=== PATIENT | female | born 1985 | race Caucasian/White ===

== ENCOUNTER 2018-10-12 23:23 | Emergency (ER) | payer MEDICAID, SELFPAY ==
--- NOTE | 2018-10-12 00:30 | DI.CT_ITS ---
SYMPTOM/DIAGNOSIS: LOW BACK PAIN, L4, R/O DISC PATH LUMBOSACRAL SPINE CT: 10/12 CT examination of the lumbosacral spine was performed according to the usual protocol. There are mild facet degenerative changes particularly at L4-5 and L5-S1. There are disc bulges at L5-S1, L4-5 and L3-4. Mild central disc herniation noted at L4-5, neural impingement not excluded. Neural foramina appear fairly well maintained throughout. No bony central canal spinal stenosis. CONCLUSION: Multi-level disc bulges, small central disc herniation at L4-5. Additional evaluation with MR may be obtained if clinically indicated.
[2018-10-12 23:31] VITALS: BP 106/79; PULSE 68; RESP 20; TEMP 36.5; O2SAT 100
--- NOTE | 2018-10-12 23:48 | W.ED.GENAD ---
Discharge Plan Disposition Patient Disposition: HOME Condition: Good Discharge Details Chief Complaint: Nk/Back Pain Clinical Impression: Lumbago, Back muscle spasm Primary Care Provider: Bee Levine ED Provider: Juan Horvath Home Meds and New Rx's Prescriptions: New diclofenac sodium [Voltaren] 1 % gel 2 gm TP QID Qty: 100 RF: 0 cyclobenzaprine 10 mg tablet 10 mg PO TID 5 Days Qty: 15 RF: 0 prednisone 50 MG tablet 50 mg PO DAILY Qty: 5 RF: 0 Continued lidocaine [LC-5] 5 % cream 1 applic Topical BID-QID PRN (Reason: pain) Qty: 1 RF: 11 oxycodone 5 mg tablet 5 mg PO DAILY MDD 5 mg PRN (Reason: pain) Qty: 14 RF: 0 oxycodone 5 mg tablet 5 mg PO DAILY MDD 5 mg PRN (Reason: pain) Qty: 14 RF: 0 oxycodone 5 mg tablet 5 mg PO DAILY MDD 5 mg PRN (Reason: pain) Qty: 14 RF: 0 acetaminophen 500 MG tablet 1,000 mg PO BID MDD 2000 Qty: 180 RF: 3 valacyclovir 500 MG tablet 500 mg PO BID Qty: 6 RF: 3 ibuprofen 600 MG tablet 600 mg PO Q8H PRN Qty: 90 RF: 0 Discontinued cyclobenzaprine 10 MG tablet 10 mg PO TID PRNQty: 30 RF: 0 Discharge Instructions Instructions: Low Back Strain (ED) Additional Instructions: The CT scan shows no evidence of significant disc bulge, fracture of your spinal column, or other abnormality. I suspect that you have a notable pulled left paraspinal muscle. Do not do anything heavier greater than 5 pounds. Please use a heating pad as often as possible. Please take the Flexeril as directed. Please continue the lidocaine cream, and also use the Voltaren cream.. Please take the prednisone daily as directed to help with the pain. If you notice any worsening of your symptoms, or any new symptoms such as loss of control for your bowels or bladder, numbness or tingling in your groin, vomiting, diarrhea, fever, chills, shortness of breath, chest pain, numbness, weakness, or fainting , please return immediately to the emergency department for reevaluation. Please follow up with your primary care provider as soon as possible for reassessment and reevaluation. As always, it was a pleasure participating in your medical care today. Stand Alone Forms: Work Release Referrals: Bee Levine NP [Primary Care Provider] - Medical Decision Making This is a pleasant 33-year-old female who presents today for evaluation of lumbar pain. The patient states that earlier today she was slightly bent over when she twisted to the left and heard a pop and had notable pain on her left lower back. Pain is consists continued throughout the day not improved. She did take a Percocet at home but this did not help much. She admits to some tingling over her lateral thigh, does not extend below the knee, no associated saddle anesthesia or bowel or bladder incontinence. No concerning red flags of fever, trauma or IV drug use. Exam demonstrates notable reproducible paraspinal pain over L3-L4 and L5 on the left. No saddle anesthesia, good rectal tone, no bowel or bladder incontinence. She also has notable worsening of her symptoms with straight leg raise. I suspect mild lumbar radiculopathy, but doubt cord compression since her signs and symptoms are clinically inconsistent with cauda equina syndrome or acute severe cord compression. Due to the nature of her symptoms that we will get a CT scan to evaluate for significant acute disc process. No clinical indication for emergent MRI at this time based on exam findings. 1:28 AM Patient has refused NSAIDs secondary to history of liver surgery. She has taken Flexeril in the steroid. She does not want the Lidoderm patch secondary to allergy to adhesives. We did discuss risks and benefits of additional medication including narcotics especially as she has been trying to wean off of these recently, however at this time the patient states that she would like additional pain meds including narcotics for further treatment of her pain. We will give additional Valium and oxycodone here in the ED for mild pain control 1:[address] imaging has returned and per virtual radiology demonstrates no evidence of acute process. No large disc protrusions are present. No canal stenosis or neuroforaminal narrowing. With no clinical evidence of cauda equina syndrome, I do feel the patient signs and symptoms are consistent with mild lumbar radiculopathy and paraspinal muscle spasm. Will prescribe Flexeril for home use, steroids, and hold off on NSAIDs and Lidoderm patches the patient states that she has a reaction to all of these. We discussed red flags which return, the importance of close PCP follow-up. I have extensively reviewed the treatment plan and discharge instructions with the patient. I have addressed all patient concerns at this time. The patient was made aware of what symptoms to monitor for that would warrant a return to the emergency department. Discussed the plan with the patient, they demonstrate verbal understanding and agreement with our assessment and plan at this time. FINDINGS: Vertebrae: No acute fracture. Loss of normal lumbar lordosis with mild degenerative spondylitic changes. Discs/Spinal canal/Neural foramina: Small circumferential disc bulges are seen in the lumbar spine, but no large disc protrusions are present, and there is no severe canal stenosis or severe neural foraminal narrowing seen by CT. Soft tissues: Unremarkable. IMPRESSION: Mild degenerative spondylitic changes. Thank you for allowing us to participate in the care of your patient. Dictated and Authenticated by: Soy Vasquez MD 10/13/2018 1:32 AM Eastern Time ([place] & [place]) HPI General Date/Time Provider Initiated Documentation: 10/12/18 23:24. HPI Narrative: This is a 33-year-old female with a past medical history of previous right sided shoulder injury, tubal ligation, who would previously been on long-term opiate narcotics but has been weaning herself off. She presents today for evaluation of back pain. Patient states that she was bending over her sink, turned to her left, and heard a pop and developed notable severe left-sided back pain. This occurred earlier today. She did take a home Percocet however this did not significantly improve her symptoms. Pain is worsened with moving and lying flat. Improved by nothing. She admits to tingling going down the left lateral aspect of her left thigh, but denies any saddle anesthesia, bowel or bladder incontinence, weakness of the legs, chest or abdominal pain, or other complaints. She denies any IV or illicit drug use or history of fever. She denies any other significant trauma to the back. She has no other complaints modifying factors at this time. Related Data Home Medications Medication Instructions Recorded Confirmed acetaminophen 1,000 mg PO BID #180 tab-cap MDD 01/30/17 09/04/18 2000 valacyclovir 500 mg PO BID #6 tab-cap 07/17/17 09/04/18 ibuprofen 600 mg PO Q8H PRN #90 tab-cap 10/10/17 09/04/18 lidocaine 5 % topical cream 1 applic TOPICAL BID-QID PRN #1 09/04/18 09/04/18 tube oxycodone 5 mg tablet 5 mg PO DAILY PRN #14 tab-cap [facility] 09/04/18 09/04/18 5 mg oxycodone 5 mg tablet 5 mg PO DAILY PRN #14 tab-cap [facility] 09/04/18 09/04/18 5 mg oxycodone 5 mg tablet 5 mg PO DAILY PRN #14 tab-cap [facility] 09/04/18 09/04/18 5 mg cyclobenzaprine 10 mg PO TID 5 Days #15 tab 10/13/18 diclofenac sodium [Voltaren] 2 gm TP QID #100 gm 10/13/18 prednisone 50 mg PO DAILY #5 tab 10/13/18 Previous Rx's Medication Instructions Recorded acetaminophen 1,000 mg PO BID #180 tab-cap [facility] 01/30/17 2000 valacyclovir 500 mg PO BID #6 tab-cap 07/17/17 ibuprofen 600 mg PO Q8H PRN #90 tab-cap 10/10/17 lidocaine 5 % topical cream 1 applic TOPICAL BID-QID PRN #1 09/04/18 tube oxycodone 5 mg tablet 5 mg PO DAILY PRN #14 tab-cap [facility] 09/04/18 5 mg oxycodone 5 mg tablet 5 mg PO DAILY PRN #14 tab-cap [facility] 09/04/18 5 mg oxycodone 5 mg tablet 5 mg PO DAILY PRN #14 tab-cap [facility] 09/04/18 5 mg cyclobenzaprine 10 mg PO TID 5 Days #15 tab 10/13/18 diclofenac sodium [Voltaren] 2 gm TP QID #100 gm 10/13/18 prednisone 50 mg PO DAILY #5 tab 10/13/18 Allergies Allergy/AdvReac Type Severity Reaction Status Date / Time tramadol Allergy Intermediate asthma Unverified 10/12/18 23:35 flareup latex Allergy Unknown Hives Unverified 10/12/18 23:35 NSAIDS (Non-Steroidal AdvReac Severe pt has had Unverified 10/12/18 23:35 Anti-Inflamma liver surgery adhesive AdvReac Intermediate richard Unverified 10/12/18 23:35 skin/ blisters aspirin AdvReac Intermediate nose bleeds Unverified 10/12/18 23:35 codeine [Codeine] AdvReac Mild Nausea Unverified 10/12/18 23:35 Penicillins AdvReac Mild nose Unverified 10/12/18 23:35 bleeds upset stomach General Stated Complaint: Nk/Back Pain ROBERTO: 3 Review of Systems Review of Systems All systems reviewed & are unremarkable except as noted in HPI and below [facility] Social History Smoking/Tobacco Use Status: Current every day Tobacco Type: cigarettes Alcohol Intake: never Drug use: Occasionally Substance use type: marijuana Household members: children Number of Children: 2 current occupation: [employer] Pets and animals: Yes Pets and animals: dog(s) Current gender identity: female What type of physical activity do you participate in: none Do you feel safe at home: Yes Do you feel safe in your relationship?: Yes Exam Narrative Exam Narrative: 1.Const: Well-nourished, Well-developed, appearing stated age 2.Eyes: PERRL, no conjunctival injection, and symmetrical lids. 3.ENT: Atraumatic external nose and ears. Moist MM. Neck: Symmetric, trachea midline, No thyromegaly. 4.CVS: +S1/S2, No murmurs or gallops. Peripheral pulses 2+ and equal in all extremities. Brisk capillary refill in all extremities. 5.RESP: Unlabored respiratory effort. Clear to auscultation bilaterally. No wheezes rales or rhonchi 6.GI: Soft, Nontender/Nondistended, No hepatosplenomegaly. No guarding or rebound. 7.MSK: Normocephalic/Atraumatic, Extremities w/o deformity or ttp No cyanosis or clubbing, Normal movement of all extremities. No midline tenderness to palpation over the CTLS spine. Notable left paraspinal tenderness at L3-L4 and L5. Positive straight leg raise bilaterally. Normal ROM in flexion, extension, side bend, and rotation. Patient has +5 out of 5 strength in the lower extremities in dorsiflexion and plantarflexion, knee flexion and extension, hip flexion and extension. There is +2 over 2 dorsalis pedis pulses bilaterally. There is normal sensation to the skin with light touch at the foot, knee, and hip. Normal saddle sensation. Good sensation over the deep sural nerve area bilaterally. Rectal exam demonstrated good rectal tone, and normal perirectal sensation. Reflexes are +2 over 4 in the patellar reflex bilaterally. +5 out of 5 strength in the medial, ulnar, radial nerve distribution bilaterally in the hands as well as intact light touch sensation to these dermatomes on the hands 8.Skin: Warm, Dry. No rashes or lesions. 9.Neuro: chief nurse executive II-XII grossly intact. Sensation grossly intact, no focal neurologic deficits. All 6 cardinal planes of vision are fully intact. No evidence of rotatory or vertical nystagmus. The patient demonstrated a normal [id number], good dexterity. There was no evidence of dysdiadochokinesia. Patient was able to ambulate without difficulty. There was no wide-based gait. Romberg, and [id number] are both normal on testing. Sensation was intact bilaterally as well as muscle strength bilaterally for all extremities. Patient was able to verbalize butter cup with no slurring, or miss pronunciation. 10.Psych: (AAO) x3. Appropriate mood and affect Course Vital Signs Temperature 36.5 C 10/12/18 23:31 Pulse 68 10/12/18 23:31 Respiratory Rate 20 10/12/18 23:31 Blood Pressure 106/79 10/12/18 23:31 Pulse Oximetry 100 10/12/18 23:31 Temperature 36.5 C 10/12/18 23:31 Temperature Source Skin 10/12/18 23:31 Pulse 68 10/12/18 23:31 Respiratory Rate 20 10/12/18 23:31 Respiratory Effort Non-Labored 10/12/18 23:35 Blood Pressure 106/79 10/12/18 23:31 Blood Pressure Position Sitting 10/12/18 23:31 Pulse Oximetry 100 10/12/18 23:31 Oxygen Delivery Method Room Air 10/12/18 23:31 Oxygen Flow Rate 0 10/12/18 23:31 Pain Level 6 10/12/18 23:36
[2018-10-12] MEDS: predniSONE 20 MG TAB 60 MG PO (23:54)
[2018-10-12] MEDS: Cyclobenzaprine 10 MG TAB PO (23:55)
--- NOTE | 2018-10-12 23:59 | ED.GENADUL_ITS ---
Discharge Plan Disposition Patient Disposition: HOME Condition: Good Discharge Details Chief Complaint: Nk/Back Pain Clinical Impression: Lumbago, Back muscle spasm Primary Care Provider: Bee Levine ED Provider: Juan Horvath Home Meds and New Rx's Prescriptions: New diclofenac sodium [Voltaren] 1 % gel 2 gm TP QID Qty: 100 RF: 0 cyclobenzaprine 10 mg tablet 10 mg PO TID 5 Days Qty: 15 RF: 0 prednisone 50 MG tablet 50 mg PO DAILY Qty: 5 RF: 0 Continued lidocaine [LC-5] 5 % cream 1 applic Topical BID-QID PRN (Reason: pain) Qty: 1 RF: 11 oxycodone 5 mg tablet 5 mg PO DAILY MDD 5 mg PRN (Reason: pain) Qty: 14 RF: 0 oxycodone 5 mg tablet 5 mg PO DAILY MDD 5 mg PRN (Reason: pain) Qty: 14 RF: 0 oxycodone 5 mg tablet 5 mg PO DAILY MDD 5 mg PRN (Reason: pain) Qty: 14 RF: 0 acetaminophen 500 MG tablet 1,000 mg PO BID MDD 2000 Qty: 180 RF: 3 valacyclovir 500 MG tablet 500 mg PO BID Qty: 6 RF: 3 ibuprofen 600 MG tablet 600 mg PO Q8H PRN Qty: 90 RF: 0 Discontinued cyclobenzaprine 10 MG tablet 10 mg PO TID PRNQty: 30 RF: 0 Discharge Instructions Instructions: Low Back Strain (ED) Additional Instructions: The CT scan shows no evidence of significant disc bulge, fracture of your spinal column, or other abnormality. I suspect that you have a notable pulled left paraspinal muscle. Do not do anything heavier greater than 5 pounds. Please use a heating pad as often as possible. Please take the Flexeril as directed. Please continue the lidocaine cream, and also use the Voltaren cream.. Please take the prednisone daily as directed to help with the pain. If you notice any worsening of your symptoms, or any new symptoms such as loss of control for your bowels or bladder, numbness or tingling in your groin, vomiting, diarrhea, fever, chills, shortness of breath, chest pain, numbness, weakness, or fainting , please return immediately to the emergency department for reevaluation. Please follow up with your primary care provider as soon as possible for reassessment and reevaluation. As always, it was a pleasure participating in your medical care today. Stand Alone Forms: Work Release Referrals: Bee Levine NP [Primary Care Provider] - Medical Decision Making This is a pleasant 33-year-old female who presents today for evaluation of lumbar pain. The patient states that earlier today she was slightly bent over when she twisted to the left and heard a pop and had notable pain on her left lower back. Pain is consists continued throughout the day not improved. She did take a Percocet at home but this did not help much. She admits to some tingling over her lateral thigh, does not extend below the knee, no associated saddle anesthesia or bowel or bladder incontinence. No concerning red flags of fever, trauma or IV drug use. Exam demonstrates notable reproducible paraspinal pain over L3-L4 and L5 on the left. No saddle ane sthesia, good rectal tone, no bowel or bladder incontinence. She also has notable worsening of her symptoms with straight leg raise. I suspect mild lumbar radiculopathy, but doubt cord compression since her signs and symptoms are clinically inconsistent with cauda equina syndrome or acute severe cord compression. Due to the nature of her symptoms that we will get a CT scan to evaluate for significant acute disc process. No clinical indication for emergent MRI at this time based on exam findings. 1:28 AM Patient has refused NSAIDs secondary to history of liver surgery. She has taken Flexeril in the steroid. She does not want the Lidoderm patch secondary to allergy to adhesives. We did discuss risks and benefits of additional medication including narcotics especially as she has been trying to wean off of these recently, however at this time the patient states that she would like additional pain meds including narcotics for further treatment of her pain. We will give additional Valium and oxycodone here in the ED for mild pain control 1:[address] imaging has returned and per virtual radiology demonstrates no evidence of acute process. No large disc protrusions are present. No canal stenosis or neuroforaminal narrowing. With no clinical evidence of cauda equina syndrome, I do feel the patient signs and symptoms are consistent with mild lumbar radiculopathy and paraspinal muscle spasm. Will prescribe Flexeril for home use, steroids, and hold off on NSAIDs and Lidoderm patches the patient states that she has a reaction to all of these. We discussed red flags which return, the importance of close PCP follow-up. I have extensively reviewed the treatment plan and discharge instructions with the patient. I have addressed all patient concerns at this time. The patient was made aware of what symptoms to monitor for that would warrant a return to the emergency department. Discussed the plan with the patient, they demonstrate verbal understanding and agreement with our assessment and plan at this time. FINDINGS: Vertebrae: No acute fracture. Loss of normal lumbar lordosis with mild degenerative spondylitic changes. Discs/Spinal canal/Neural foramina: Small circumferential disc bulges are seen in the lumbar spine, but no large disc protrusions are present, and there is no severe canal stenosis or severe neural foraminal narrowing seen by CT. Soft tissues: Unremarkable. IMPRESSION: Mild degenerative spondylitic changes. Thank you for allowing us to participate in the care of your patient. Dictated and Authenticated by: Soy Vasquez MD 10/13/2018 1:32 AM Eastern Time ([place] & [place]) HPI General Date/Time Provider Initiated Documentation: 10/12/18 23:24 . HPI Narrative: This is a 33-year-old female with a past medical history of previous right sided shoulder injury, tubal ligation, who would previously been on long-term opiate narcotics but has been weaning herself off. She presents today for evaluation of back pain. Patient states that she was bending over her sink, turned to her left, and heard a pop and developed notable severe left-sided back pain. This occurred earlier today. She did take a home Percocet however this did not significantly improve her symptoms. Pain is worsened with moving and lying flat. Improved by nothing. She admits to tingling going down the left lateral aspect of her left thigh, but denies any saddle anesthesia, bowel or bladder incontinence, weakness of the legs, chest or abdominal pain, or other complaints. She denies any IV or illicit drug use or history of fever. She denies any other significant trauma to the back. She has no other complaints modifying factors at this time. Related Data Home Medications Medication Instructions Recorded Confirmed acetaminophen 1,000 mg PO BID #180 tab-cap MDD 01/30/17 09/04/18 2000 valacyclovir 500 mg PO BID #6 tab-cap 07/17/17 09/04/18 ibuprofen 600 mg PO Q8H PRN #90 tab-cap 10/10/17 09/04/18 lidocaine 5 % topical cream 1 applic TOPICAL BID-QID PRN #1 09/04/18 09/04/18 tube oxycodone 5 mg tablet 5 mg PO DAILY PRN #14 tab-cap [facility] 09/04/18 09/04/18 5 mg oxycodone 5 mg tablet 5 mg PO DAILY PRN #14 tab-cap [facility] 09/04/18 09/04/18 5 mg oxycodone 5 mg tablet 5 mg PO DAILY PRN #14 tab-cap [facility] 09/04/18 09/04/18 5 mg cyclobenzaprine 10 mg PO TID 5 Days #15 tab 10/13/18 diclofenac sodium [Voltaren] 2 gm TP QID #100 gm 10/13/18 prednisone 50 mg PO DAILY #5 tab 10/13/18 Previous Rx's Medication Instructions Recorded acetaminophen 1,000 mg PO BID #180 tab-cap [facility] 01/30/171999 valacyclovir 500 mg PO BID #6 tab-cap 07/17/17 ibuprofen 600 mg PO Q8H PRN #90 tab-cap 10/10/17 lidocaine 5 % topical cream 1 applic TOPICAL BID-QID PRN #1 09/04/18 tube oxycodone 5 mg tablet 5 mg PO DAILY PRN #14 tab-cap [facility] 09/04/18 5 mg oxycodone 5 mg tablet 5 mg PO DAILY PRN #14 tab-cap [facility] 09/04/18 5 mg oxycodone 5 mg tablet 5 mg PO DAILY PRN #14 tab-cap [facility] 09/04/18 5 mg cyclobenzaprine 10 mg PO TID 5 Days #15 tab 10/13/18 diclofenac sodium [Voltaren] 2 gm TP QID #100 gm 10/13/18 prednisone 50 mg PO DAILY #5 tab 10/13/18 Allergies Allergy/AdvReac Type Severity Reaction Status Date / Time tramadol Allergy Intermediate asthma Unverified 10/12/18 23:35 flareup latex Allergy Unknown Hives Unverified 10/12/18 23:35 NSAIDS (Non-Steroidal AdvReac Severe pt has had Unverified 10/12/18 23:35 Anti-Inflamma liver surgery adhesive AdvReac Intermediate richard Unverified 10/12/18 23:35 skin/ blisters aspirin AdvReac Intermediate nose bleeds Unverified 10/12/18 23:35 codeine [Codeine] AdvReac Mild Nausea Unverified 10/12/18 23:35 Penicillins AdvReac Mild nose Unverified 10/12/18 23:35 bleeds upset stomach General Stated Complaint: Nk/Back Pain ROBERTO: 3 Review of Systems Review of Systems All systems reviewed & are unremarkable except as noted in HPI and below PFSH Social History Smoking/Tobacco Use Status: Current every day Tobacco Type: cigarettes Alcohol Intake: never Drug use: Occasionally Substance use type: marijuana Household members: children Number of Children: 2 current occupation: [employer] Pets and animals: Yes Pets and animals: dog(s) Current gender identity: female What type of physical activity do you participate in: none Do you feel safe at home: Yes Do you feel safe in your relationship?: Yes Exam Narrative Exam Narrative: 1.Const: Well-nourished, Well-developed, appearing stated age 2.Eyes: PERRL, no conjunctival injection, and symmetrical lids. 3.ENT: Atraumatic external nose and ears. Moist MM. Neck: Symmetric, trachea midline, No thyromegaly. 4.CVS: +S1/S2, No murmurs or gallops. Peripheral pulses 2+ and equal in all extremities. Brisk capillary refill in all extremities. 5.RESP: Unlabored respiratory effort. Clear to auscultation bilaterally. No wheezes rales or rhonchi 6.GI: Soft, Nontender/Nondistended, No hepatosplenomegaly. No guarding or rebound. 7.MSK: Normocephalic/Atraumatic, Extremities w/o deformity or ttp No cyanosis or clubbing, Normal movement of all extremities. No midline tenderness to palpation over the CTLS spine. Notable left paraspinal tenderness at L3-L4 and L5. Positive straight leg raise bilaterally. Normal ROM in flexion, extension, side bend, and rotation. Patient has +5 out of 5 strength in the lower extremities in dorsiflexion and plantarflexion, knee flexion and extension, hip flexion and extension. There is +2 over 2 dorsalis pedis pulses bilaterally. There is normal sensation to the skin with light touch at the foot, knee, and hip. Normal saddle sensation. Good sensation over the deep sural nerve area bilaterally. Rectal exam demonstrated good rectal tone, and normal perirectal sensation. Reflexes are +2 over 4 in the patellar reflex bilaterally. +5 out of 5 strength in the medial, ulnar, radial nerve distribution bilaterally in the hands as well as intact light touch sensation to these dermatomes on the hands 8.Skin: Warm, Dry. No rashes or lesions. 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 Sensation grossly intact, no focal neurologi c deficits. All 6 cardinal planes of vision are fully intact. No evidence of rotatory or vertical nystagmus. The patient demonstrated a normal [id number], good dexterity. There was no evidence of dysdiadochokinesia. Patient was able to ambulate without difficulty. There was no wide-based gait. Romberg, and [id number] are both normal on testing. Sensation was intact bilaterally as well as muscle strength bilaterally for all extremities. Patient was able to verbalize butter cup with no slurring, or miss pronunciation. 10.Psych: (AAO) x3. Appropriate mood and affect Course Vital Signs Temperature 36.5 C 10/12/18 23:31 Pulse 68 10/12/18 23:31 Respiratory Rate 20 10/12/18 23:31 Blood Pressure 106/79 10/12/18 23:31 Pulse Oximetry 100 10/12/18 23:31 Temperature 36.5 C 10/12/18 23:31 Temperature Source Skin 10/12/18 23:31 Pulse 68 10/12/18 23:31 Respiratory Rate 20 10/12/18 23:31 Respiratory Effort Non-Labored 10/12/18 23:35 Blood Pressure 106/79 10/12/18 23:31 Blood Pressure Position Sitting 10/12/18 23:31 Pulse Oximetry 100 10/12/18 23:31 Oxygen Delivery Method Room Air 10/12/18 23:31 Oxygen Flow Rate 0 10/12/18 23:31 Pain Level 6 10/12/18 23:36
[2018-10-13 00:52] VITALS: BP 110/69; PULSE 60; RESP 22; TEMP 36.4; O2SAT 100
[2018-10-13] MEDS: diazePAM 5 MG TAB PO (01:05)
[2018-10-13] MEDS: oxyCODONE 5 MG TAB 10 MG PO (01:07)
--- NOTE | 2018-10-13 01:32 | DI.VRAD_ITS ---
EXAM: CT Lumbar Spine Without Contrast EXAM DATE/TIME: 10/12/2018 11:46 PM CLINICAL HISTORY: 33 years old, female; Patient HX: Low back pain l4, R/O disc path TECHNIQUE: Imaging protocol: Axial computed tomography images of the lumbar spine without intravenous contrast. Coronal and sagittal reformatted images were created and reviewed. Radiation optimization: All CT scans at this facility use at least one of these dose optimization techniques: automated exposure control; mA and/or kV adjustment per patient size (includes targeted exams where dose is matched to clinical indication); or iterative reconstruction. COMPARISON: CR LUMBAR SPINE COMPLETE 04/28/2015 12:40 PM FINDINGS: Vertebrae: No acute fracture. Loss of normal lumbar lordosis with mild degenerative spondylitic changes. Discs/Spinal canal/Neural foramina: Small circumferential disc bulges are seen in the lumbar spine, but no large disc protrusions are present, and there is no severe canal stenosis or severe neural foraminal narrowing seen by CT. Soft tissues: Unremarkable. IMPRESSION: Mild degenerative spondylitic changes. Dictated and Authenticated by: Soy Vasquez MD. Ordering:LUNA Martinez MD
== END 2018-10-13 01:54 | disposition home or self-care (01) ==
PROVIDERS: Emergency Provider Student in an Organized Health Care Education/Training Program; PCP Nurse Practitioner Family
DX: M54.5 Low back pain (principal); M62.830 Muscle spasm of back; X50.9XXA Other and unspecified overexertion or strenuous movements or postures, initial encounter
CPT/HCPCS: 99284; 72131; 99285; J7512

== ENCOUNTER 2019-03-02 00:45 | Outpatient (CLI) | payer MEDICAID, SELFPAY ==
--- NOTE | 2019-03-02 14:43 | DI.RAD_ITS ---
EXAM: XR SHOULDER RT COMPLETE 2+V INDICATION: R/O FX OR DISLOCATION M25.511 PAIN RT SHOULDER. COMPARISON: RIGHT SHOULDER COMPLETE from 04/02/2014 TECHNIQUE: 2D digital imaging was performed. FINDINGS: There has been prior resection of the distal clavicle. Metallic anchors are seen in the greater tube rosity and anterior upper humerus related to rotator cuff repair. The humeral head appears normally positioned. There is some spurring at the undersurface of the acromion. Degenerative changes are al so seen of the glenohumeral joint. IMPRESSION: Postsurgical and degenerative changes.
== END 2019-03-02 01:05 ==
PROVIDERS: PCP Nurse Practitioner Family; Visit Provider Nurse Practitioner Family
DX: M25.511 Pain in right shoulder (principal); M19.011 Primary osteoarthritis, right shoulder; Z98.890 Other specified postprocedural states
CPT/HCPCS: 73030

== ENCOUNTER 2019-04-21 00:19 | Outpatient (CLI) | payer MEDICAID, SELFPAY ==
--- NOTE | 2019-04-21 09:04 | DI.MRI_ITS ---
EXAM: MR LUMBAR SPINE WO CLINICAL HISTORY: Worsening low back pain, needs MRI for pain clinic M54.5 LOW BACK PAIN. TECHNIQUE: Multiplanar multisequence MRI was performed. COMPARISON: CT lumbar spine wo from 10/13/2018 FINDINGS: The conus medullaris has a normal appearance and location. At L5-S1, there is no focal disc herniation, central spinal canal or neural foraminal stenosis. At L4-L5, there is disc desiccation. There is a small annular tear. No central spinal canal stenosi s is seen. There is no neural foraminal stenosis. At L3-L4, there are mild degenerative changes of the facets. There is a mild diffuse disc bulge. No significant central spinal canal stenosis is seen. No neural foraminal stenosis is present. At L2-L3, there is disc desiccation. There is a mild diffuse disc bulge. No significant central spi nal canal stenosis is present. There is no neural foraminal stenosis. At L1-L2, there is no focal disc herniation, central spinal canal or neural foraminal stenosis. Apart from the mild degenerative endplate signal changes, marrow signal is within normal limits. IMPRESSION: Multilevel degenerative changes in the lumbar spine. No significant central spinal canal or neural f oraminal stenosis. Please see the above discussion for complete details.
== END 2019-04-21 00:39 ==
PROVIDERS: PCP Nurse Practitioner Family; Visit Provider Family Medicine
DX: M54.5 Low back pain (principal); M51.36 Other intervertebral disc degeneration, lumbar region; M47.816 Spondylosis without myelopathy or radiculopathy, lumbar region
CPT/HCPCS: 72148

== ENCOUNTER 2019-07-02 20:41 | Emergency (ER) | payer MEDICAID, SELFPAY ==
[2019-07-02 20:45] VITALS: BP 116/75; PULSE 73; RESP 16; TEMP 36.6; O2SAT 98
--- NOTE | 2019-07-02 20:52 | ED.GENADUL_ITS ---
Discharge Plan Disposition Patient Disposition: HOME Condition: Good Discharge Details Chief Complaint: DentalOral Clinical Impression: Dental infection Primary Care Provider: Bee Levine ED Provider: Aline Mcmahon Home Meds and New Rx's Prescriptions: New clindamycin HCl 150 mg capsule 450 mg PO QID Qty: 78 RF: 0 Continued diclofenac sodium 1 % gel 4 gm TP QID PRN (Reason: back pain) 6 Days Qty: 100 RF: 11 lidocaine [LC-5] 5 % cream 1 applic Topical BID-QID PRN (Reason: pain) Qty: 1 RF: 11 acetaminophen 500 MG tablet 1,000 mg PO BID MDD 1999 Qty: 180 RF: 3 ibuprofen 600 MG tablet 600 mg PO Q8H PRN Qty: 90 RF: 0 Hold Instructions: Home Medication placed on hold at Doctor's office valacyclovir 500 mg tablet 500 mg PO BID Qty: 6 RF: 3 cyclobenzaprine 10 mg tablet 10 mg PO TID PRN (Reason: muscle spasm) Qty: 30 RF: 3 Discharge Instructions Instructions: Clindamycin (By mouth), Oxycodone, Rapid Release (By mouth), Dental Abscess (ED) Additional Instructions: Encourage water intake. Tylenol as needed for discomfort. You may use the Hurricaine gel 3 times daily as needed for discomfort. Please take the clindamycin as prescribed, even if symptoms improve please take the entire course. You may use the oxycodone, 1 tab every 6 hours as needed. Please take this only as prescribed do not drive will take this medication. Please keep this in safe place. Please contact your dentist Friday to schedule follow-up appointment, if you do not have a dentist attached is a list of local dentist. If you develop fever/chills, increased swelling, increased pain or other new/worsening symptoms please seek care urgently once again Referrals: Bee Levine, [facility] [Primary Care Provider] - Medical Decision Making Patient is a pleasant 34-year-old female presents today with chief complaint of left lower dental pain. She reports that dental pain began 2 days ago and is progressively been increasing. She states that she did not have any swelling until today. Has noted progressively worsening left lower cheek swelling. Denies any fevers or chills. States the pain is maximal with eating. She has not taken anything for her discomfort. Patient does have overall poor dentition and has had dental infections historically. On exam, patient has generally poor dentition. She does appear uncomfortable. She does have swelling of the left lower cheek. The area does feel swollen but no area of fluctuance is palpated externally or internally. Pain is maximal near the buccal side of the #20 tooth. She is no swelling under the tongue, no palpable lymphadenopathy, no nuchal rigidity. she denies any headache. She has no swelling of the posterior oropharynx. Patient has no change in her voice. I did ultrasound the area they do not see any collection of fluid to suggest a drainable abscess. Patient will be placed on clindamycin. I did offer her a block I discussed the recess benefits. At this time, the patient has declined but she is aware that she may return at any point for further intervention. She will be given Tylenol, topical Hurricaine gel. Will discharge home with oxycodone. She was instructed to only use this every 6 hours. She will not be given this prior to discharge as the patient is driving home. She was given first dose of clindamycin here, dose for tomorrow morning and prescription for the rest. She was given strict return precautions. All her questions and concerns were addressed and she is a greement this plan. She will contact dentist on Friday to schedule follow-up. HPI General Mode of arrival: ambulatory . Date/Time Provider Initiated Documentation: 07/02/19 20:52 . Limitations to Documentation: no limitations . Information obtained by: patient and RN notes reviewed . History of Present Illness 34 year old F presents to the emergency department with the chief complaint of left lower dental pain, described as moderate, with intensity rated at 6. Quality is described as aching, and is localized to the face and mouth. Patient reports no radiation. Patient started experiencing this day(s) (2) and it has been constant. No relieving factors improve sym ptom(s), Eating worsens symptoms . Patient notes denies cough, diaphoresis, fever/chills, headaches, loss of appetite, nausea/vomiting, rash and shortness of breath. Patient did receive the following treatments prior to arrival, none Related Data Home Medications Medication Instructions Recorded Confirmed acetaminophen 1,000 mg PO BID #180 tab-cap MDD 01/30/17 07/02/19 2000 ibuprofen 600 mg PO Q8H PRN #90 tab-cap 10/10/17 07/02/19 lidocaine 5 % topical cream 1 applic TOPICAL BID-QID PRN #1 09/04/18 07/02/19 tube valacyclovir 500 mg tablet 500 mg PO BID #6 tab-cap 10/21/18 07/02/19 cyclobenzaprine 10 mg tablet 10 mg PO TID PRN #30 tab-cap 1007/02/19 diclofenac sodium 1 % topical gel 4 gm TP QID PRN 6 Days #100 gm 05/24/19 07/02/19 clindamycin HCl 450 mg PO QID #78 cap 07/02/19 Previous Rx's Medication Instructions Recorded acetaminophen 1,000 mg PO BID #180 tab-cap MDD 01/30/17 2000 ibuprofen 600 mg PO Q8H PRN #90 tab-cap 10/10/17 lidocaine 5 % topical cream 1 applic TOPICAL BID-QID PRN #1 09/04/18 tube valacyclovir 500 mg tablet 500 mg PO BID #6 tab-cap 10/21/18 cyclobenzaprine 10 mg tablet 10 mg PO TID PRN #30 tab-cap 01/08/19 diclofenac sodium 1 % topical gel 4 gm TP QID PRN 6 Days #100 gm 05/24/19 clindamycin HCl 450 mg PO QID #78 cap 07/02/19 Allergies Allergy/AdvReac Type Severity Reaction Status Date / Time tramadol Allergy Intermediate asthma Verified 07/02/19 20:50 flareup latex Allergy Unknown Hives Verified 07/02/19 20:50 NSAIDS (Non-Steroidal AdvReac Severe pt has had Verified 07/02/19 20:50 Anti-Inflamma liver surgery adhesive AdvReac Intermediate richard Verified 07/02/19 20:50 skin/ blisters aspirin AdvReac Intermediate nose bleeds Verified 07/02/19 20:50 codeine [Codeine] AdvReac Mild Nausea Verified 07/02/19 20:50 Penicillins AdvReac Mild nose Verified 07/02/19 20:50 bleeds upset stomach General Stated Complaint: DentalOral ROBERTO: 4 Review of Systems Constitutional Constitutional: Reports as per HPI, Denies chills, Denies fatigue, Denies fever(s), Denies headache(s) and Denies poor appetite Eyes Eyes: Denies change in vision and Denies irritation ENT Ears, Nose, Mouth, and Throat: Reports as per HPI, Reports dental pain, Denies dysphagia, Denies dizziness, Denies dry mouth, Denies ear discharge, Denies otalgia, Reports facial pain, Denies headache(s), Denies hoarseness, Denies lip swelling, Denies nasal congestion, Denies odynophagia and Denies sore throat Cardiovascular Cardiovascular: Reports as per HPI and Denies chest pain Respiratory Respiratory: Reports as per HPI and Denies cough Gastrointestinal Gastrointestinal: Reports as per HPI, Denies dysphagia, Denies nausea, Denies odynophagia and Denies vomiting Integumentary/Breasts Skin/Breast: Reports as per HPI, Denies erythema, Denies rash and Denies skin pain Neurologic Neurologic: Reports as per HPI, Denies dizziness and Denies headache(s) Endocrine Endocrine: Denies fatigue Allergic/Immunologic Allergic/Immunologic: Denies lip swelling [facility] Social History (Updated 05/24/19 @ 10:32 by Noa Jacobsen RN) Smoking/Tobacco Use Status: Current every day Tobacco Type: cigarettes Alcohol Intake: never Drug use: Occasionally Substance use type: marijuana Household members: children Number of Children: 2 current occupation: [employer] Pets and animals: Yes Pets and animals: dog(s) Current gender identity: female What is your relationship status?: Panel score (0-1 are the most socially isolated patients): 0 What type of physical activity do you participate in: none and additional Details: Pt is active with child Do you feel safe at home: Yes Do you feel safe in your relationship?: Yes Exam Const General: cooperative, healthy appearing, comfortable, no acute distress, well developed and well groomed Nutritional Appearance: average body habitus and well nourished Orientation: alert and awake [facility] Head: normal to inspection, normocephalic and atraumatic Ears: hearing grossly normal bilaterally, external ears normal and TM's normal bilaterally General nose exam: external nose normal and nares normal Face and sinus: sinuses nontender, face asymmetric (swelling of left lower cheek ), no crepitus, no ecchymosis, no erythema, no edema, no fluctuance, no sinus tenderness and tenderness Face images: 1. area of swelling, accompanies area of discomfort on buccal side of decayed #20 tooth. No fluctance. No erythema,warmth or drainage Mouth: oral mucosae normal, lip normal, tongue normal, salivary ducts normal, oropharynx normal, moist mucous membranes, lip abnormal, no muffled voice, no trismus and No restricted motion Teeth and gingiva: poor dentition (as above) Throat: posterior oropharynx normal, tonsils normal and uvula midline Eyes General: appearance normal, both eyes and all related structures Neck Neck: normal visual inspection, full ROM, no lymphadenopathy, supple and no anterior neck swelling Resp Effort & Inspection: normal respiratory effort, able to speak in complete sentences and no respiratory distress Auscultation: clear to auscultation bilaterally, no rales, no rhonchi and no wheezes Cardio Rate: regular rate Rhythm: regular rhythm Heart Sounds: S1 normal and S2 normal Skin General skin exam: no rashes or lesions noted Trauma: no lacerations or abrasions Neuro General: patient alert and patient awake Cognition: normal cognition Speech: speech normal Gait: normal gait Psych Appearance: grossly normal and well kempt Mental Status: mental status grossly normal Speech and Movement: speech and movement normal Course Vital Signs Vital signs: Vital Signs Temperature 36.6 C 07/02/19 20:45 Pulse 73 07/02/19 20:45 Respiratory Rate 16 07/02/19 20:45 Blood Pressure 116/75 07/02/19 20:45 Pulse Oximetry 98 07/02/19 20:45 Temperature 36.6 C 07/02/19 20:45 Temperature Source Skin 07/02/19 20:45 Pulse 73 07/02/19 20:45 Respiratory Rate 16 07/02/19 20:45 Blood Pressure 116/75 07/02/19 20:45 Blood Pressure Position Sitting 07/02/19 20:45 Pulse Oximetry 98 07/02/19 20:45 Oxygen Delivery Method Room Air 07/02/19 20:45 Oxygen Flow Rate 0 07/02/19 20:45 Pain Level 6 07/02/19 20:45
[2019-07-02] MEDS: Benzocaine 20% Gel 30 GM JAR MM (21:10)
[2019-07-02] MEDS: Clindamycin 150 MG CAP 900 MG PO (21:10)
[2019-07-02] MEDS: Acetaminophen 500 MG TAB 1000 MG PO (21:10)
== END 2019-07-02 21:42 | disposition home or self-care (01) ==
LOC: ER 21:27
PROVIDERS: Emergency Provider Physician Assistant; PCP Nurse Practitioner Family
DX: R68.84 Jaw pain (principal); R22.0 Localized swelling, mass and lump, head; K04.7 Periapical abscess without sinus
CPT/HCPCS: 99283

== ENCOUNTER 2019-10-09 14:12 | Emergency (ER) | payer MEDICAID, SELFPAY ==
[2019-10-09 14:18] VITALS: BP 97/63; PULSE 75; RESP 18; TEMP 37.1; O2SAT 97
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
[2019-10-09] MEDS: Benzocaine 20% Gel 30 GM JAR MM (14:39)
[2019-10-09] MEDS: Cephalexin 500 MG CAP PO (15:57)
[2019-10-09 15:58] VITALS: BP 108/66; PULSE 55; RESP 16; TEMP 36.6; O2SAT 100
== END 2019-10-09 15:58 | disposition home or self-care (01) ==
PROVIDERS: Emergency Provider Student in an Organized Health Care Education/Training Program; PCP Nurse Practitioner Family
DX: R68.84 Jaw pain (principal); K04.7 Periapical abscess without sinus
CPT/HCPCS: 41800

== ENCOUNTER 2019-10-20 09:25 | Outpatient (CLI) | payer MEDICAID, SELFPAY ==
--- NOTE | 2019-10-20 12:30 | DI.RAD_ITS ---
EXAM: XR HIP RT COMPLETE AP PELVIS CLINICAL HISTORY: r/o new bony, W19.XXXA FALL, LOW BACK PAIN TECHNIQUE: COMPARISON: CR LUMBAR SPINE COMPLETE from 04/28/2015 CR XR LUMBAR SPINE COMPLETE from 10/20/2019 FINDINGS: Two views were obtained. The cartilaginous joint spaces of both hips appear well maintained. No bon y or soft tissue abnormality seen involving the pelvic region. No fracture seen. IMPRESSION:
--- NOTE | 2019-10-20 12:30 | DI.RAD_ITS ---
EXAM: XR LUMBAR SPINE COMPLETE CLINICAL HISTORY: r/o bony path, W19.XXXA FALL, LOW BACK PAIN TECHNIQUE: COMPARISON: No exams were available for comparison FINDINGS: Five views were obtained. There are slight degenerative changes of the SI joints, right greater than left. The intervertebral disc spaces of the lumbar spine are fairly well maintained. There is no e vidence of spondylolysis or spondylolisthesis. Minimal hypertrophic degenerative changes of the face t joints of the lower lumbar spine noted. No other significant bony abnormality seen. No evidence o f acute fracture. IMPRESSION: Minimal degenerative changes as described above.
== END 2019-10-20 09:45 ==
PROVIDERS: PCP Nurse Practitioner Family; Visit Provider Student in an Organized Health Care Education/Training Program
DX: M54.5 Low back pain (principal); W19.XXXA Unspecified fall, initial encounter; M53.3 Sacrococcygeal disorders, not elsewhere classified; M47.817 Spondylosis without myelopathy or radiculopathy, lumbosacral region; M25.551 Pain in right hip
CPT/HCPCS: 72110; 73502

== ENCOUNTER 2019-11-19 17:51 | Emergency (ER) | payer MEDICAID, SELFPAY ==
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
[2019-11-19 17:58] VITALS: BP 118/87; PULSE 109; RESP 14; TEMP 36.6; O2SAT 97
--- NOTE | 2019-11-19 18:15 | DI.US_ITS ---
EXAM: US PELVIS TRANSVAGINAL CLINICAL HISTORY: LLQ pain, vaginal bleeding, ?torsion TECHNIQUE: Transabdominal and transvaginal imaging was performed using standard protocol. COMPARISON: US PELVIS TRANSVAG from 09/21/[address] lumbar spine wo from 10/13/2018 FINDINGS: KIDNEYS: Kidneys are symmetric in size. There is a question of a nonobstructing stone in the mid righ t kidney. No evidence of hydronephrosis. No renal mass or cyst identified. UTERUS: Anteverted. Endometrium: 5 millimeters Myometrium: Unremarkable. Cervix: Unremarkable. OVARIES: Right: Cyst or mass: None. Left: Cyst or mass: 3.8 centimeter simple cyst. DOPPLER: Color: Symmetric and uniform flow to both ovaries. No hyperemia. Duplex: Normal ovarian arterial waveforms visualized. CUL-DE-SAC: Free fluid: None. IMPRESSION: 1. Normal-appearing uterus with endometrial stripe within normal limits. 2. 3.8 centimeter left ovarian cyst. DATA REPOSITORY:
[2019-11-19 18:40] LABS: Bilirubin Small (Negative); Blood Large (Negative); Clarity Sl Cloudy (Clear); Glucose Negative (Negative); Ketones Negative (Negative); Leukocyte Esterase Negative (Negative); Nitrite Negative (Negative); Specific Gravity >= 1.030 (1.005-1.025); Urobilinogen 0.2 EU/dL (Up TO 0.2); pH 5.5 (5-8)
[2019-11-19 18:42] VITALS: RESP 18
[2019-11-19] MEDS: LORazepam 2 MG/ML VIAL 0.5 MG IVP (18:47)
[2019-11-19 18:49] LABS: Epithelial Cells Many HPF (Negative)
[2019-11-19 18:51] LABS: C & S Indicated? No/Sq. Contamination
[2019-11-19 18:55] LABS: Abs Immature Grans 0.02 10^3/uL (0.0-0.06); Absolute Basophil Count 0.04 10^3/uL (0.0-0.2); Absolute Eosinophil Count 0.03 10^3/uL (0.0-0.7); Absolute Lymphocyte Count 2.73 10^3/uL (1.2-3.4); Absolute Monocyte Count 0.57 10^3/uL (0.1-0.8); Absolute Neutrophil Count 7.31 10^3/uL (1.2-6.7); Basophils % 0.4; Eosinophils % 0.3; HGB 13.8 g/dL (11.2-15.7); Immature Grans % 0.2; Lymphocytes % 25.5; MCH 29.6 pg (27.0-33.0); MCHC 32.1 % (32.0-36.0); MCV 92.3 fL (80-95); MPV 10.2 fL (8.0-11.0); Monocytes % 5.3; Neutrophils % 68.3; Nucleated RBC 0 %; Platelet Count 323 10^3/uL (130-400); RBC 4.66 10^6/uL (3.93-5.22)
[2019-11-19 19:10] LABS: ALT 28 U/L (14-59); AST 19 U/L (15-37); Albumin 4.2 g/dL (3.4-5.0); Alkaline Phosphatase 62 U/L (46-116); Anion Gap 10.7 mmol/L (3-11); BUN 7 mg/dL (7-18); Bilirubin, Total 0.5 mg/dL (0.2-1.0); CO2 24.3 mmol/L (21.0-32.0); Calcium 8.4 mg/dL (8.5-10.1); Chloride 103 mmol/L (98-107); Glucose 103 mg/dL (74-106); Potassium 3.4 mmol/L (3.5-5.1); Sodium 138 mmol/L (136-145)
--- NOTE | 2019-11-19 19:18 | NUR.NOTE ---
Nursing Note: assisted provider with set up and utility worker production vaginal exam. Pt tolerated well.
[2019-11-19 19:30] LABS: HCG Quant, Pregnancy < 1 mIU/mL (1-3)
[2019-11-19 20:14] VITALS: BP 116/80; PULSE 90; RESP 18; O2SAT 97
--- NOTE | 2019-11-19 20:24 | DI.VRAD_ITS ---
PROCEDURE INFORMATION: Exam: US Pelvis Complete, Transabdominal and US Pelvis, Transvaginal Exam date and time: 11/19/2019 6:26 PM Age: 34 years old Clinical indication: Other: Llq and vaginal bleeding. ; Prior surgery; Surgery date: 6+ months; Surgery type: Removal of ovarian cysts. ; Patient HX: Bleeding and llq pain since last night. HX of ovarian cysts, R/O torsion. ; Additional info: Incidental finding of ? RT non-obstructing nephrolithiasis = 4 mm, shadowing and twinkle artifact visualized. TECHNIQUE: Imaging protocol: Real-time transabdominal and transvaginal pelvic ultrasound (complete) with image documentation. Transvaginal imaging was used for better evaluation of the endometrium and adnexa. COMPARISON: US PELVIS TRANSVAG 09/21/2015 3:13 PM FINDINGS: Uterus/cervix: The uterus is normal in size measuring 7.8 x 3.7 x 5.2 cm. The endometrium is normal in thickness measuring 5 mm. The echotexture of the uterus is heterogeneous with areas of pencil shadowing, the appearance is typical of adenomyosis. Right adnexa: The right ovary is within normal limits measuring 1.9 x 1.6 x 1.5 cm. Vascular flow is within normal limits. Left adnexa: The left ovary is slightly asymmetrically enlarged measuring 3.9 x 3.1 x 3.3 cm due to the presence of a simple appearing cyst measuring up to 3.8 cm. Echotexture of the left ovary is slightly heterogeneous, this may be related to prior surgeries. Vascular flow is within normal limits. Free fluid: None. Bladder: Normal. Other findings: Incidentally noted is a 4 mm nonobstructing right renal calculus. No hydronephrosis or contour deforming mass. IMPRESSION: 1. Echotexture of the uterine myometrium suggests adenomyosis. Otherwise the uterus is within normal limits without endometrial thickening. 2. No evidence of ovarian torsion. Simple appearing left ovarian cyst measuring up to 3.8 cm. No follow-up is necessary based on size criteria. The right ovary is within normal limits. 3. Nonobstructing right renal calculus measuring 4 mm. Dictated and Authenticated by: Lelo Koroma MD. Ordering:BERTA Mireles MD
== END 2019-11-19 20:15 | disposition home or self-care (01) ==
PROVIDERS: Emergency Provider Physician Assistant; PCP Nurse Practitioner Family
DX: N93.8 Other specified abnormal uterine and vaginal bleeding (principal); R10.32 Left lower quadrant pain; N83.202 Unspecified ovarian cyst, left side; F41.9 Anxiety disorder, unspecified
CPT/HCPCS: 36415; 80053; 86850; 86900; 86901; 96374; 99284; 76830; 76856; 81003; 81015; 84702; 85025; 99285; J2060

== ENCOUNTER 2019-12-17 11:57 | Outpatient (REF) | payer MEDICAID, SELFPAY ==
--- NOTE | 2019-12-17 11:35 | PAPFT_PTH ---
PATIENT: Nasrin Haney LOC: [facility] U#:[id number] AGE/SX: 34/F ROOM: RE12/17/[address]: Cordell Thomas MD : 1985 BED: DIS: 12/17/2019 SPEC #: [id number] RECD: 12/17/19 12:59 STATUS: JOSHUA RETabitha #: [id number] CHONG: 12/17/19 11:[address]: Cordell Thomas DEPT: [facility] Cytology RECD BY: Mela Jones ENTERED: 12/17/19 13:00 SP TYPE: PAPFT OTHR DR: Bee Levine APRN Tissues: 1 - CX/ENDOCX FOR PAP SMEARS Procedures: PAP THIN PREP/UVM Screening HPV DNA PROBE Comments: [id number] (CHLAMYDIA/GC)
[2019-12-21 14:50] LABS: Chlamydia Result Negative (Negative); GC Result Negative (Negative)
== END 2019-12-17 12:17 ==
LOC: LBN 11:57
PROVIDERS: PCP Nurse Practitioner Family; Visit Provider Obstetrics & Gynecology
DX: Z12.4 Encounter for screening for malignant neoplasm of cervix (principal); Z11.51 Encounter for screening for human papillomavirus (HPV); Z11.3 Encounter for screening for infections with a predominantly sexual mode of transmission
CPT/HCPCS: 87491; 87591; 88142; 87624

== ENCOUNTER 2019-12-17 13:41 | Outpatient (CLI) | payer MEDICAID, SELFPAY ==
[2019-12-17 14:18] LABS: HCT 40.7 % (36.0-46.0); HGB 13.2 g/dL (11.2-15.7); MCH 29.9 pg (27.0-33.0); MCHC 32.4 % (32.0-36.0); MCV 92.1 fL (80-95); MPV 10.3 fL (8.0-11.0); Platelet Count 303 10^3/uL (130-400); RBC 4.42 10^6/uL (3.93-5.22); RDW 13.1 % (11.7-14.6); RDW-SD 44.6 fL; WBC 6.69 10^3/uL (4.4-10.8)
[2019-12-18 20:30] LABS: COVID-19 RT-PCR Result NEGATIVE (Negative)
== END 2019-12-17 14:01 ==
PROVIDERS: PCP Nurse Practitioner Family; Visit Provider Obstetrics & Gynecology
DX: R10.2 Pelvic and perineal pain (principal); N83.202 Unspecified ovarian cyst, left side; Z11.59 Encounter for screening for other viral diseases; Z01.818 Encounter for other preprocedural examination; Z01.812 Encounter for preprocedural laboratory examination
CPT/HCPCS: 36415; 85027; 86850; 86900; 86901; U0003

== ENCOUNTER 2019-12-17 19:21 | Outpatient (CLI) | payer MEDICAID, SELFPAY ==
--- NOTE | 2019-12-17 11:45 | DI.US_ITS ---
EXAM: US PELVIS TRANSVAGINAL CLINICAL HISTORY: Ovarian cyst, N83.209, Rule out ovarian torsion TECHNIQUE: Transabdominal and transvaginal imaging was performed using standard protocol. COMPARISON: US US PELVIS TRANSVAGINAL from 11/19/2019 US US PELVIS TRANSVAGINAL from 11/19/2019 FINDINGS: KIDNEYS: Kidneys are symmetric in size. No evidence of renal calculi. No evidence of hydronephrosis. No renal mass or cyst identified. UTERUS: Anteverted. 8.1 x 3.8 x 5.3 cm. Endometrium: 4 millimeters in thickness. Myometrium: Unremarkable. Cervix: Unremarkable. OVARIES: Right: Cyst or mass: None. Left: Cyst or mass: 2.7 centimeter maximal dimension simple cyst versus dominant follicle, decreased in size when compared with the previous exam versus new cyst or follicle. DOPPLER: Color: Symmetric and uniform flow to both ovaries. No hyperemia. Duplex: Normal ovarian arterial waveforms visualized. CUL-DE-SAC: Free fluid: None. IMPRESSION: 1. Normal-appearing uterus with endometrial stripe within normal limits. 2. Decreased size of left ovarian cyst. No evidence of torsion.. DATA REPOSITORY:
== END 2019-12-17 19:41 ==
PROVIDERS: PCP Nurse Practitioner Family; Visit Provider Obstetrics & Gynecology
DX: N83.202 Unspecified ovarian cyst, left side (principal)
CPT/HCPCS: 76830; 76856

== ENCOUNTER 2019-12-22 06:16 | Day surgery (SDC) | payer MEDICAID, SELFPAY ==
[2019-12-22] VITALS (10 sets, daily range): BP systolic 96–114; BP diastolic 58–76; PULSE 48–78; RESP 14–33; TEMP 36.3–36.7; O2SAT 92–100
[2019-12-22] MEDS: Lactated Ringers 1,000 ML 125 ML IV (06:55)
--- NOTE | 2019-12-22 08:15 | OVAR_PTH ---
PATIENT: Nasrin Haney LOC: [facility] U#:[id number] AGE/SX: 34/F ROOM: RE12/22/[address]: Cordell Thomas MD : 1985 BED: DIS: 12/22/2019 SPEC #: [id number] RECD: 12/22/19 09:29 STATUS: JOSHUA RETabitha #: [id number] CHONG: 12/22/19 08:[address]: Cordell Thomas DEPT: Surgical Specimen RECD BY: Argentina Solis ENTERED: 12/22/19 09:31 SP TYPE: ALEXANDRO SERNA DR: Bee Levine APRN Tissues: 1 - OVARY BIOPSY Procedures: GROSS AND MICRO LEVEL 4 Comments: [id number]
[2019-12-22] MEDS: Bupivacaine 0.5% Pres-Free 30 ML VIAL (08:18)
--- NOTE | 2019-12-22 08:41 | ROE_ITS ---
Date of service: 12/22/19 Time of Service: 08:41 Operative Note Operative Note DATE OF PROCEDURE: 12/22/19 PRE-OP DIAGNOSIS: 1. Abdominal pain 2. Left ovarian cyst POST-OP DIAGNOSIS: same PROCEDURE: Laparoscopic left ovarian cystectomy SURGEON: Cordell Thomas ASSISTING SURGEON: Kayla Fofana ANESTHESIA: GETA ESTIMATED BLOOD LOSS: 10 PATHOLOGY: other (Ovarian cyst) COMPLICATIONS: None Patient's condition: stable Findings: 1. 2 small 1 to 2 cm left ovarian cysts. Procedure Description: Patient the operating room and after adequate general anesthesia the patient was placed in lithotomy position. The patient was prepped and draped in the usual sterile manner. A [employer] uterine manipulator was placed through the cervix. The patient was repositioned. Attention was then turned the patient's abdomen. The skin and subcutaneous tissue of the umbilicus were infiltrated with 0.25% Marcaine solution. A small infraumbilical skin incision was made through a previous laparoscopy incision with a #15 scalpel. Sharp dissection was carried down to the underlying layer of fascia. The fascia was grasped and elevated with 2 Juan clamps and incised sharply with a scalpel. The peritoneum was entered with a hemostat. 2S retractors were placed. 2 sutures of 0 Vicryl were placed on either side of the fascial incision. A 10 mm balloon trocar was advanced through the incision. A pneumoperitoneum to approximately 15 mmHg was established. 2 5 mm ports were placed under direct visualization in the right lower and right upper quadrants. The abdomen was free of adhesions. The uterus was normal. The right tube and ovary was normal. There were no visible implants of endometriosis although an Miki-Masters defect was noted along the right uterosacral ligament. The left ovary had a fleshy cyst that was 1 to 2 cm and a clear fluid-filled cyst that was also 1 to 2 cm. With use of a needle tip cautery. Dissection was carried along the base of the fleshy appearing cyst and it was removed intact and submitted to pathology. The fluid-filled cyst was opened also with a needle tip cautery. There was no dissectible cyst wall for removal. It was left open for drainage. Excellent hemostasis was noted from both sites. The remainder of the ovary appeared normal. The procedure was concluded at this point. The 5 mm trochars were removed under direct visualization. The abdomen was desufflated and the umbilical port was removed. The fascia at the umbilicus was closed with the 2 previously placed sutures of 0 Vicryl. An additional komhly-ks-ynurk suture of 0 Vicryl was used to close the defect in the fascia. The skin at each incision was closed with interrupted sutures of 4 Monocryl. Dermabond was appli ed. All instrumentation was removed. The procedure was tolerated well. The patient was transferred to PACU stable condition. Sponge, lap and needle counts were correct at the conclusion of the procedure.
--- NOTE | 2019-12-22 08:47 | W.PM.DSUDISC ---
Discharge Plan Disposition Patient Disposition: HOME Condition: Good Discharge Details Attending Provider: Cordell Thomas Primary Care Provider: Bee Levine Home Meds and New Rx's Prescriptions: New hydrocodone-acetaminophen [[place]] 5-325 mg tablet 1 tab PO Q4H PRNQty: 20 RF: 0 Continued hydrocodone-acetaminophen [[place]] 5-325 mg tablet 1 tab PO Q6H MDD 4 PRN (Reason: pain) Qty: 20 RF: 0 lidocaine [LC-5] 5 % cream 1 applic Topical BID-QID PRN (Reason: pain) Qty: 1 RF: 11 ibuprofen 600 MG tablet 600 mg PO Q8H PRN Qty: 90 RF: 0 Hold Instructions: Home Medication placed on hold at Doctor's office cyclobenzaprine 10 mg tablet 10 mg PO TID PRN (Reason: muscle spasm) Qty: 30 RF: 3 valacyclovir 500 mg tablet 500 mg PO BID PRNRF: 0 Discharge Instructions Activity:: Activity as Tolerated Shower/Bathe:: 24 hours Diet:: As Tolerated Discharge Orders Discharge Orders: Discharge Order (Routine); Ordered 12/22/19 Ordered By: Cordell Thomas DS: Diagnosis Discharge Diagnosis (1) Ovarian cyst, left: Status: Acute
[2019-12-22] MEDS: fentaNYL 100 MCG/2 ML VIAL IVP ×2 (08:57→09:40)
[2019-12-22] MEDS: LORazepam 2 MG/ML VIAL 0.5 MG IVP (09:24)
== END 2019-12-22 11:20 | disposition home or self-care (01) ==
PROVIDERS: PCP Nurse Practitioner Family; Visit Provider Obstetrics & Gynecology
PROC: (CPT 58662; principal; 2019-12-22 07:30)
DX: N83.202 Unspecified ovarian cyst, left side (principal); J45.909 Unspecified asthma, uncomplicated; F32.9 Major depressive disorder, single episode, unspecified
CPT/HCPCS: 58662; 88305; J1100; J2060; J2250; J2405; J2704; J3010

== ENCOUNTER 2020-01-21 08:32 | Outpatient (CLI) | payer MEDICAID, SELFPAY ==
[2020-01-22 01:55] LABS: COVID-19 RT-PCR UVMMC Result Negative (Negative)
== END 2020-01-21 08:52 ==
PROVIDERS: PCP Nurse Practitioner Family; Visit Provider Student in an Organized Health Care Education/Training Program
DX: R50.9 Fever, unspecified (principal)
CPT/HCPCS: U0003

== ENCOUNTER 2020-04-23 14:44 | Emergency (ER) | payer MEDICAID, SELFPAY ==
[2020-04-23 14:57] VITALS: BP 112/73; PULSE 65; RESP 18; TEMP 36.7; O2SAT 98
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
[2020-04-23] MEDS: Omnipaque 350 MG/ML 100 ML BTL IJ (16:24)
[2020-04-23] MEDS: Normal Saline - Diluent 50 ML VIAL IV (16:25)
[2020-04-23] MEDS: Normal Saline Flush 10 ML SYR IVP (16:26)
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
== END 2020-04-23 17:30 | disposition home or self-care (01) ==
PROVIDERS: Emergency Provider Physician Assistant Medical; PCP Nurse Practitioner Family
DX: S09.93XA Unspecified injury of face, initial encounter (principal); S00.11XA Contusion of right eyelid and periocular area, initial encounter; Y08.89XA Assault by other specified means, initial encounter; Y07.03 Male partner, perpetrator of maltreatment and neglect
CPT/HCPCS: 70491; 99285; 70486; 99284; J3490

== ENCOUNTER 2020-05-31 01:40 | Outpatient (CLI) | payer MEDICAID, SELFPAY ==
--- NOTE | 2020-05-31 09:42 | DI.RAD_ITS ---
EXAM: XR THUMB RT CLINICAL HISTORY: 1wk R thumb pain--r/o bony abnormality/fx,M79.644,S69.90XA. TECHNIQUE: 2D digital imaging was performed. COMPARISON: No exams were available for comparison FINDINGS: There is no evidence of fracture or dislocation. No radiopaque foreign body. No osseous lesions nor erosions. IMPRESSION: DATA REPOSITORY: RADIATION DOSE DELIVERED:
== END 2020-05-31 01:41 ==
LOC: DI 01:41
PROVIDERS: PCP Nurse Practitioner Family; Visit Provider Nurse Practitioner Adult Health
DX: M79.644 Pain in right finger(s) (principal)
CPT/HCPCS: 73140

== ENCOUNTER 2021-09-02 02:55 | Emergency (ER) | payer MEDICAID, SELFPAY ==
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
[2021-09-02 03:01] VITALS: BP 109/73; PULSE 72; RESP 16; TEMP 36.7; O2SAT 97
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
[2021-09-02] MEDS: Acetaminophen 500 MG TAB 1000 MG PO (03:30)
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
== END 2021-09-02 05:24 | disposition home or self-care (01) ==
LOC: ER 05:27
PROVIDERS: Emergency Provider Student in an Organized Health Care Education/Training Program; PCP Nurse Practitioner Family
DX: S62.396A Other fracture of fifth metacarpal bone, right hand, initial encounter for closed fracture (principal); W22.8XXA Striking against or struck by other objects, initial encounter
CPT/HCPCS: 29125; 99283; 73130

== ENCOUNTER 2021-09-10 12:01 | Emergency (ER) | payer MEDICAID, SELFPAY ==
[2021-09-10 12:03] VITALS: BP 95/60; PULSE 52; RESP 16; TEMP 36.8; O2SAT 98
--- NOTE | 2021-09-10 12:15 | RT.EKG_ITS ---
APPROVED REPORT Exam: Resting ECG Reason for Exam: chest pain Patient Location: E HR:46 bpm ECG Measurements Heart Rate 46 AXIS AZ 142 P 66 QRSd 87 QRS 22 QT 486 T 46 QTc 426 Conclusion Sinus bradycardia...rate< 60
--- NOTE | 2021-09-10 12:15 | NUR.NOTE ---
pt states she is not currently taking any medications Nursing Note:
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
[2021-09-12 12:42] LABS: COVID-19 RT-PCR UVMMC Result Negative (Negative)
== END 2021-09-10 13:11 | disposition home or self-care (01) ==
PROVIDERS: Emergency Provider Emergency Medicine; PCP Nurse Practitioner Family
DX: R05.9 Cough, unspecified (principal); R07.9 Chest pain, unspecified; F17.210 Nicotine dependence, cigarettes, uncomplicated; Z20.822 Contact with and (suspected) exposure to COVID-19
CPT/HCPCS: 93005; 99284; U0003; 93010; 99283

== ENCOUNTER 2021-09-14 11:36 | Outpatient (CLI) | payer MEDICAID, SELFPAY ==
--- NOTE | 2021-09-14 11:30 | DI.RAD_ITS ---
Exam(s) XR HAND RT COMPLETE EXAM: XR HAND RT COMPLETE CLINICAL HISTORY: follow up. TECHNIQUE: 2D digital imaging was performed of the right hand. Three images were obtained. AP, late ral and oblique views were obtained. COMPARISON: CR,XR XR HAND RT COMPLETE from 09/02/2021 FINDINGS: BONES: There has been no change in alignment of the 5th metacarpal fracture. No bony destructive les ion is seen. JOINTS: No dislocation present. SOFT TISSUE: Normal. IMPRESSION: Stable 5th metacarpal fracture. DATA REPOSITORY: RADIATION DOSE DELIVERED:
== END 2021-09-14 11:37 | disposition home or self-care (01) ==
LOC: DIORS 11:36
PROVIDERS: PCP Physician Assistant; Referring Provider Physician Assistant; Visit Provider Physician Assistant Surgical
DX: S62.396D Other fracture of fifth metacarpal bone, right hand, subsequent encounter for fracture with routine healing; X58.XXXA Exposure to other specified factors, initial encounter
CPT/HCPCS: 73130

== ENCOUNTER 2021-10-15 14:20 | Outpatient (CLI) | payer MEDICAID, SELFPAY ==
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
== END 2021-10-15 14:21 | disposition home or self-care (01) ==
LOC: DIORS 14:20
PROVIDERS: PCP Physician Assistant; Referring Provider Physician Assistant; Visit Provider Student in an Organized Health Care Education/Training Program
DX: S62.306A Unspecified fracture of fifth metacarpal bone, right hand, initial encounter for closed fracture (principal); X58.XXXA Exposure to other specified factors, initial encounter
CPT/HCPCS: 73130

== ENCOUNTER 2022-09-22 19:43 | Emergency (ER) | payer MEDICAID, SELFPAY ==
[2022-09-22 19:44] VITALS: BP 114/79; PULSE 62; RESP 18; TEMP 36.6; O2SAT 99
[2022-09-22 19:49] VITALS: RESP 16
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
[2022-09-22 20:42] LABS: Bilirubin Small (Negative); Blood Large (Negative); Clarity Cloudy (Clear); Glucose Negative (Negative); Ketones Negative (Negative); Leukocyte Esterase Small (Negative); Nitrite Negative (Negative); Specific Gravity >= 1.030 (1.005-1.025); Urobilinogen 0.2 mg/dL (Up to 0.2); pH 5.5 (5-8)
[2022-09-22 20:45] LABS: Abs Immature Grans 0.02 10^3/uL (0.0-0.06); Absolute Basophil Count 0.06 10^3/uL (0.0-0.2); Absolute Lymphocyte Count 2.17 10^3/uL (1.2-3.4); Absolute Monocyte Count 0.55 10^3/uL (0.1-0.8); Absolute Neutrophil Count 3.53 10^3/uL (1.2-6.7); Basophils % 0.9; Eosinophils % 5.9; HCT 39.2 % (36.0-46.0); HGB 13.3 g/dL (11.2-15.7); Immature Grans % 0.3; Lymphocytes % 32.2; MCHC 33.9 % (32.0-36.0); MCV 89 fL (80-95); MPV 9.6 fL (8.0-11.0); Monocytes % 8.2; Neutrophils % 52.5; Platelet Count 347 10^3/uL (130-400); RBC 4.43 10^6/uL (3.93-5.22); RDW 12.5 % (11.7-14.6); RDW-SD 40.8 fL; WBC 6.73 10^3/uL (4.4-10.8)
[2022-09-22 20:50] LABS: *AMPHETAMINES SCREEN URINE Negative (Negative); *BARBITURATES SCREEN URINE Negative (Negative); *BENZODIAZEPINES SCREEN URINE Negative (Negative); Cannabinoids THC Positive (Negative); Cocaine Screen,Urine Positive (Negative); METHADONE URINE SCREEN Negative (Negative); OPIATES URINE SCREEN Negative (Negative)
[2022-09-22 20:52] LABS: Tricyclic Antidepressants Negative (Negative)
[2022-09-22 21:00] LABS: Bacteria Moderate HPF (Negative); C & S Indicated? Yes; Casts Negative LPF (Negative); Crystals Negative HPF (Negative); Epithelial Cells Few HPF (Negative); Mucus Moderate (Negative)
[2022-09-22 21:08] LABS: ALT 19 U/L (14-59); AST 22 U/L (15-37); Albumin 3.4 g/dL (3.4-5.0); Alkaline Phosphatase 67 U/L (46-116); Anion Gap 7.6 mmol/L (3-11); BUN 13 mg/dL (7-18); Bilirubin, Total 0.4 mg/dL (0.2-1.0); CO2 28.4 mmol/L (21.0-32.0); CREATININE 0.9 mg/dL (0.55-1.02); Calcium 8.3 mg/dL (8.5-10.1); Chloride 105 mmol/L (98-107); Glucose 96 mg/dL (74-106); Potassium 3.4 mmol/L (3.5-5.1); Sodium 141 mmol/L (136-145); TSH (W/Ref FT4) 0.75 uIU/mL (0.36-3.74)
[2022-09-22 21:11] LABS: ETHANOL BLOOD < 3.0 mg/dL (<10)
[2022-09-22 21:13] LABS: Salicylate < 2.8 mg/dL (<2.8)
[2022-09-22 21:15] LABS: Acetaminophen < 2 ug/mL (10-30)
[2022-09-22] MEDS: Ibuprofen 600 MG TAB PO (22:14)
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
[2022-09-22 23:00] VITALS: RESP 16
[2022-09-23] VITALS: RESP 16
[2022-09-23 01:00] VITALS: RESP 17
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
[2022-09-23 02:00] VITALS: RESP 15
[2022-09-23 03:00] VITALS: RESP 16
[2022-09-23 04:00] VITALS: RESP 14
--- NOTE | 2022-09-23 09:33 | W.EDPROG ---
Date of service: 09/23/22 Time of Service: 09:33 Medical Decision Making pt sleeping in no distress, pending placement a voluntary bed. The reason she is here is for si reported in the community, cpso ordered Sign Out Sign Out Data: Sign Out Comment: Patient with suicidal ideation and polysubstance abuse. Currently is a voluntary psych admission although police and crisis should be called if she tries to be she would then be moved to an ED status. Placement pending this morning. Last updated by Deanna Molina MD at 09/23/22 07:59 Discharge Plan Discharge Details Chief Complaint: GenMedical Primary Care Provider: Terence Flores ED Provider: Mark Irizarry Home Meds and New Rx's Prescriptions: No Action No Known Home Meds
--- NOTE | 2022-09-23 09:37 | NUR.NOTE ---
Nursing Note: Pt asked for me to come in so that she could let me know that she is not suicidal and she is not homicidal. She wanted this addressed because she feels like her sister over stepped when she told everyone that she was suicidal and homicidal. made aware of this conversation.
--- NOTE | 2022-09-23 09:42 | NUR.NOTE ---
Nursing Note:Patient is awake, eating breakfast, wanting a change of clothes, her purse and cell phone and she wants her sister Rafat to be called. Patient stated that she feels here sister Linda is overstepping and that she is not suicidal; she just got high during an argument. Feels that she should not be here in the ED for getting high.
--- NOTE | 2022-09-23 09:49 | PDOC.CMSAFE ---
Care Management Safety Plan Status Status: Voluntary Reason for Wait Reason for Wait: Inpatient Admission Safety Plan Safety Plan: VOLUNTARY FOR INPATIENT PSYCHIATRIC STABILIZATION.? Per documentation, appears EE paperwork has been drafted; if Nasrin changes her mind about voluntarily seeking placement, [facility] has reported they will seek involuntary hold. Safety plan has been established with patient, and care team, to adhere to patient goals, identify restrictions based on behavioral status, address nutrition, and determine allowed personal belongings, tools for hygiene and personal care. Determine level of activity including ambulation, level of supervision, visitors, and determine privileges based on behaviors and level of engagement by pt. VOLUNTARY SAFETY PLAN: 1. Will remain on suicide precautions. In Paper Clothes 2. Will remain in room under direct supervision of one-on-one staff at all times provided by [employer]; STEPHENIE, [employer] educational director. 3. May have paper cups, plates, finger foods as well as a cardboard spoon with which to eat meals. 4. Follow [facility] Management of the Admitted Behavioral Health Patient policy. 5. Comfort bath system only, shower permitted with escort at RN discretion. 6. No personal belongings-soft items permitted at RN discretion. 7. Visitors-none at this time. 8. Activities: soft cart items approved per RN discretion. 9.? Bathroom privileges with escort in the ED, available in room without limitation on M/S. 10. Phone: contact limited to family at this time, via cordless phone at RN discretion. 11. Due to VOLUNTARY status, if patient wishes to leave [facility], staff will contact [facility] Crisis Screener ([phone]) and On-Call Tattoo And Body Artist ([phone]) as soon as possible. In the event of elopement, notify [facility] Police ([phone]). Patient is currently voluntarily at [facility] and seeking inpatient admission when a bed becomes available. [facility] Frontline Projection Printer will continue seeking placement. Please contact the [employer] Tattoo And Body Artist ([phone]) and [facility] Projection Printer ([phone]) for any needed changes in the Safety Plan. Safety plan has been provided to interdepartmental care team.
--- NOTE | 2022-09-23 09:53 | NUR.NOTE ---
Nursing Note: Patient speaking with Stacy RAMRIEZ about her concerns regarding her being here.
[2022-09-23] MEDS: Ibuprofen 600 MG TAB PO (10:33)
--- NOTE | 2022-09-23 11:12 | NUR.NOTE ---
Nursing Note: I spoke with Chepe at [facility] and let him know that the patient at this time does not feel like she needs placement and wants to speak with someone other than ED staff before she will be willing to go to [facility]. Chepe is going to get the needleworker that is covering the patient to come to the ED and speak with her as soon as she can get here.
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
== END 2022-09-23 14:38 ==
PROVIDERS: Emergency Medicine; Emergency Provider Emergency Medicine; PCP Physician Assistant
DX: F19.20 Other psychoactive substance dependence, uncomplicated (principal); R45.851 Suicidal ideations
CPT/HCPCS: 80053; 80307; 81025; 99285; 72040; 72100; 80320; 80329; 81003; 81015; 84443; 85025; 87086

== ENCOUNTER 2022-12-10 22:48 | Emergency (ER) | payer MEDICAID, SELFPAY ==
[2022-12-10 22:58] VITALS: BP 102/67; PULSE 79; RESP 18; TEMP 37.4; O2SAT 97
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
[2022-12-10] MEDS: MORPHine 4 MG/ML SYR IM (23:48)
[2022-12-10] MEDS: Clindamycin 150 MG CAP PO (23:50)
[2022-12-11 00:37] VITALS: PULSE 89; RESP 18; O2SAT 99
== END 2022-12-11 00:36 | disposition home or self-care (01) ==
PROVIDERS: Emergency Provider Emergency Medicine Emergency Medical Services; PCP Physician Assistant
DX: L02.411 Cutaneous abscess of right axilla (principal)
CPT/HCPCS: 96372; 99284; J2270

== ENCOUNTER 2023-07-26 13:41 | Emergency (ER) | payer SELFPAY ==
[2023-07-26 13:46] VITALS: BP 119/101; PULSE 98; RESP 20; O2SAT 98
[2023-07-26 13:53] VITALS: TEMP 37.2
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
--- NOTE | 2023-07-26 17:10 | ED.PROG_ITS ---
Date of service: 07/26/23 Time of Service: 15:30 Medical Decision Making 1530-assumed care of patient who was sleeping at this time. Plan that was discussed with me was patient had presented due to self-harm while in police custody due to public intoxication. Patient alert and oriented at time of presentation but did appear intoxicated. Plan was for patient to have food due to not eating in the last couple days and to rest until clinically sober due to the fact that patient is refusing any blood work. Will reassess patient when she awakens. 1710-patient alert and requested to speak with me given that she is wanting to leave. Patient informed of plan of mental health evaluation when she is clinically sober but at this time patient is still dozing off while we are talking and does not appear clinically sober. Did offer for patient to have blood work drawn to check for actual blood alcohol level but she refused. Will continue with observation until clinically sober. 1800-patient more alert and oriented requesting dinner and now is willing to perform blood work urinalysis. Does complain of right middle finger pain secondary to injury so we will perform x-ray imaging. No obvious deformity, sensation intact, along with cap refill. Reviewed labs and Overall nondiagnostic, patient has no alcohol, she is positive for cocaine and THC but otherwise negative UDS. Urine does show slight positive nitrite leukocyte Estrace and 10-20 white count so we will give fosfomycin given that patient is reported as homeless as I am concerned about follow-up and medication compliance. X-ray of finger was negative. Mental health was able to come in and evaluate patient. Patient refusing for psychiatric evaluation due to family member working at facility but did continue to state that the only reason she put the shoestring around her neck was to get attention, continues to deny any suicidal or homicidal ideations, is alert and oriented, is ambulatory, and is able to follow direction. Given that patient continues to adamantly refuse homicidal or suicidal ideations, is now more alert awake and oriented, and no alcohol detected and has been here for more than 7 hours I do feel safe and comfortable with discharge. Was able to obtain a safe ride home for patient. After discussion of diagnosis and plan of care patient has no further needs, questions, or concerns and states clear understanding to return to the emergency department for any worsening symptoms. This documentation was generated using Dragon dictation system, please disregard any oddities of phrase or misspellings. Quality:SDOH Health Related Social Needs: No Data to Display Exam Const General: no acute distress and not ill appearing Orientation: alert, awake and oriented x3 HENMT Mouth: moist mucous membranes Resp Effort & Inspection: normal respiratory effort, able to speak in complete sentences and no respiratory distress Skin General skin exam: no rashes or lesions noted Neuro General: patient alert, patient awake, patient oriented x3, moves all extremities and no focal motor deficits Sign Out Sign Out Data: Sign Out Comment: pending clinical sobriety and [facility] assessment Last updated by Mela Daigle PA at 07/26/23 15:32 Discharge Plan Disposition Patient Disposition: Home Discharge Details Clinical Impression: Polysubstance abuse, Altered mental status Primary Care Provider: Terence Flores ED Provider: oRlan Alvarez Home Meds and New Rx's Prescriptions: No Action No Known Home Meds Discharge Instructions Additional Instructions: Please follow care plan to follow-up with mental health services. Feel free to return the emergency department for any new or significant worsening of symptoms otherwise follow-up with primary care provider as needed. Referrals: Terence Flores [Primary Care Provider] -
--- NOTE | 2023-07-26 17:45 | DI.RAD_ITS ---
Exam(s) XR FINGER RT MIDDLE EXAM: XR FINGER RT MIDDLE CLINICAL HISTORY: blunt trauma. TECHNIQUE: 2D digital imaging was performed. Three views. COMPARISON: CR XR HAND RT COMPLETE from 10/15/2021 FINDINGS: BONES: No acute fracture is present. Old healed 5th metacarpal fracture. No bony destructive lesion is seen. JOINTS: No dislocation present. SOFT TISSUE: Normal. IMPRESSION: No evidence of acute fracture, dislocation, or subluxation. DATA REPOSITORY: RADIATION DOSE DELIVERED:
[2023-07-26 17:55] LABS: Abs Immature Grans 0.02 10^3/uL (0.0-0.06); Absolute Basophil Count 0.07 10^3/uL (0.0-0.2); Absolute Eosinophil Count 0.98 10^3/uL (0.0-0.7); Absolute Lymphocyte Count 2.02 10^3/uL (1.2-3.4); Absolute Monocyte Count 1.04 10^3/uL (0.1-0.8); Absolute Neutrophil Count 5.65 10^3/uL (1.2-6.7); Basophils % 0.7; HCT 39.7 % (36.0-46.0); HGB 13.2 g/dL (11.2-15.7); Immature Grans % 0.2; Lymphocytes % 20.7; MCH 29.7 pg (27.0-33.0); MCHC 33.2 % (32.0-36.0); MCV 89 fL (80-95); MPV 9.3 fL (8.0-11.0); Monocytes % 10.6; Neutrophils % 57.8; Platelet Count 365 10^3/uL (130-400); RBC 4.45 10^6/uL (3.93-5.22); RDW 12.5 % (11.7-14.6); RDW-SD 41.1 fL; WBC 9.78 10^3/uL (4.4-10.8)
[2023-07-26 18:19] LABS: Bilirubin Negative (Negative); Blood Negative (Negative); Clarity Clear (Clear); Glucose Negative (Negative); Ketones Negative (Negative); Leukocyte Esterase Small (Negative); Nitrite Positive (Negative); Specific Gravity 1.015 (1.005-1.025); Urobilinogen 0.2 mg/dL (Up to 0.2)
[2023-07-26 18:22] LABS: HCG Qual (Urine) Negative
[2023-07-26 18:24] LABS: ALT 20 U/L (14-59); AST 23 U/L (15-37); Albumin 3.5 g/dL (3.4-5.0); Alkaline Phosphatase 76 U/L (46-116); Anion Gap 7.7 mmol/L (3-11); BUN 14 mg/dL (7-18); Bilirubin, Total 0.6 mg/dL (0.2-1.0); CO2 30.3 mmol/L (21.0-32.0); CREATININE 1.2 mg/dL (0.55-1.02); Calcium 8.2 mg/dL (8.5-10.1); Chloride 103 mmol/L (98-107); Estimated GFR 58.69 (mL/min/1.73m2); Glucose 80 mg/dL (74-106); Potassium 4.1 mmol/L (3.5-5.1); Sodium 141 mmol/L (136-145); Total Protein 7.2 g/dL (6.4-8.2)
[2023-07-26 18:25] LABS: ETHANOL BLOOD < 3.0 mg/dL (<10)
[2023-07-26 18:27] VITALS: BP 103/68; PULSE 86; RESP 15; O2SAT 97
[2023-07-26 18:28] LABS: *AMPHETAMINES SCREEN URINE Negative (Negative); *BARBITURATES SCREEN URINE Negative (Negative); *BENZODIAZEPINES SCREEN URINE Negative (Negative); Cannabinoids THC Positive (Negative); Cocaine Screen,Urine Positive (Negative); METHADONE URINE SCREEN Negative (Negative); OPIATES URINE SCREEN Negative (Negative)
[2023-07-26 18:29] LABS: Tricyclic Antidepressants Negative (Negative)
[2023-07-26 18:30] LABS: Bacteria Moderate HPF (Negative); C & S Indicated? No/Sq. Contamination; Casts Negative LPF (Negative); Crystals Negative HPF (Negative); Epithelial Cells Moderate HPF (Negative); Mucus Negative (Negative); RBC 0-2 HPF (0-2)
--- NOTE | 2023-07-26 18:34 | DI.VRAD_ITS ---
PROCEDURE INFORMATION: Exam: XR Right Finger(s) Exam date and time: 07/26/2023 6:03 PM Age: 38 years old Clinical indication: Other: Blunt trauma TECHNIQUE: Imaging protocol: Radiologic exam of the right fingers. Views: Minimum 2 views. COMPARISON: CR XR HAND RT COMPLETE 02/11/2022 14:10 FINDINGS: Bones/joints: Old 5th distal phalanx fracture. No evidence for acute bony injury. No displaced fracture identified. Soft tissues: Soft tissue swelling of the 3rd finger around the PIP joint. IMPRESSION: No evidence for acute bony injury. Soft tissue swelling. If clinical symptoms persist recommend followup film in 7-10 days. Dictated and Authenticated by: Kerrie Sandoval MD. Ordering:EUGENE Gongora MD
[2023-07-26] MEDS: Fosfomycin Tromethamine 3 GM PACKET PO (20:05)
[2023-07-26 21:26] VITALS: BP 88/57; PULSE 76; RESP 16; TEMP 36; O2SAT 100
[2023-07-26 22:08] VITALS: BP 95/67; PULSE 84; RESP 18; O2SAT 98
--- NOTE | 2023-07-28 07:04 | NUR.NOTE ---
Accessed chart to get contact information for RCT authorization form. Nursing Note:
== END 2023-07-26 22:10 | disposition home or self-care (01) ==
LOC: ER 22:18
PROVIDERS: Emergency Provider Nurse Practitioner Family; PCP Physician Assistant
DX: R41.82 Altered mental status, unspecified (principal); F14.10 Cocaine abuse, uncomplicated; R45.88 Nonsuicidal self-harm; Z59.00 Homelessness unspecified; M79.644 Pain in right finger(s)
CPT/HCPCS: 00123; 80053; 80307; 81025; 99284; 73140; 80320; 81003; 81015; 85025; 99283; J3490

== ENCOUNTER 2023-10-20 14:21 | Emergency (ER) | payer SELFPAY ==
[2023-10-20 14:06] VITALS: BP 117/42; PULSE 88; RESP 16; TEMP 36.2; O2SAT 97
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
[2023-10-20 15:05] VITALS: RESP 18
[2023-10-20] MEDS: LORazepam 0.5 MG TAB PO (15:05)
[2023-10-20] MEDS: Ondansetron O.D.T. 4 MG TABEF SL (15:05)
== END 2023-10-20 16:02 | disposition home or self-care (01) ==
LOC: ER 16:03
PROVIDERS: Emergency Provider Emergency Medicine; PCP Physician Assistant
DX: R11.0 Nausea (principal); F14.10 Cocaine abuse, uncomplicated; F17.210 Nicotine dependence, cigarettes, uncomplicated
CPT/HCPCS: 81025; 99283

== ENCOUNTER 2023-12-10 08:54 | Emergency (ER) | payer SELFPAY ==
[2023-12-10 08:58] VITALS: BP 107/94; PULSE 82; RESP 17; TEMP 36.7; O2SAT 99
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
[2023-12-10 09:36] LABS: Abs Immature Grans 0.02 10^3/uL (0.0-0.06); Absolute Basophil Count 0.05 10^3/uL (0.0-0.2); Absolute Eosinophil Count 0.28 10^3/uL (0.0-0.7); Absolute Lymphocyte Count 2.07 10^3/uL (1.2-3.4); Absolute Neutrophil Count 5.06 10^3/uL (1.2-6.7); Basophils % 0.6 %; Eosinophils % 3.4 %; HCT 36.6 % (36.0-46.0); HGB 12.5 g/dL (11.2-15.7); Immature Grans % 0.2 %; MCH 29.8 pg (27.0-33.0); MCHC 34.2 % (32.0-36.0); MCV 87 fL (80-95); Monocytes % 9.7 %; Neutrophils % 61.1 %; Platelet Count 330 10^3/uL (130-400); RDW-SD 40.7 fL; WBC 8.28 10^3/uL (4.4-10.8)
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
[2023-12-10 10:01] LABS: ALT 18 U/L (14-59); AST 24 U/L (15-37); Albumin 3.6 g/dL (3.4-5.0); Alkaline Phosphatase 63 U/L (46-116); Anion Gap 6.8 mmol/L (3-11); BUN 7 mg/dL (7-18); Bilirubin, Total 0.51 mg/dL (0.2-1.0); CO2 27.2 mmol/L (21.0-32.0); CREATININE 0.7 mg/dL (0.55-1.02); Calcium 8.4 mg/dL (8.5-10.1); Chloride 108 mmol/L (98-107); Estimated GFR 112.05 (mL/min/1.73m2); Glucose 90 mg/dL (74-106); Potassium 3.1 mmol/L (3.5-5.1); Salicylate < 2.8 mg/dL (<2.8); Sodium 142 mmol/L (136-145); TSH (W/Ref FT4) 2.04 uIU/mL (0.36-3.74); Total Protein 7.2 g/dL (6.4-8.2)
[2023-12-10 10:02] LABS: HCG Qual (Serum) Negative
[2023-12-10 10:16] LABS: Acetaminophen < 2 ug/mL (10-30)
[2023-12-10 10:27] LABS: ETHANOL BLOOD < 3.0 mg/dL (<10)
--- OUTSIDE RECORDS SUMMARY | 2023-12-10 10:59 | XMS_ITS | Encounter Summary ---
Author Organization [facility] Address [address] [place] [address] Care Team Providers Care Cattle Care Worker Name Role Phone Unknown, Provider Primary Care Provider + [phone] Encounter Details Date Type Department Care Team (Late st Contact Info) Description 02/28/2003 Results Only [facility] [address] [place] [address] Raman Maynard, MARIA GUADALUPE [address] [place] [address] Social History Tobacco Use Types Packs/Day Years Used Date Smoking Tobacco: Never Assessed Sex and Gender Information Value Date Recorded Sex Assigned at Not on file Gender Identity Not on file Sexual Orientation Not on file documented as of this encounter Plan of Treatment Not on file documented as of this encounter Procedures Procedure Name Priority Date/Time Associated Diagnosis Comments HPV DETECTION, HIGH RISK TYPES Routine 02/28/2003 14:26 EST CYTOPATHOLOGY Routine 02/28/2003 0:00 EST documented in this encounter Results * HUMAN PAPILLOMA VIRUS DNA TEST (02/28/2003 14:26 EST) Specimen Description Cervix, ThinPrep vial [facility] Result Negative for HPV types 16, 18, 31, 33, 35, 39, 45, 51, 52, 56, 58, 59, and 68. [facility] Report Status Final [id number] [facility] 02/28/2003 14:2 6 EST 03/09/2003 14:26 EST Raman Maynard NP MICROBIOLOGY - GENER AL ORDERABLES [facility] [address] [place] [address] * CYTOPATHOLOGY (02/28/2003 0:00 EST) Pathology Report: CYTOPATHOLOGY REPORT Reports generated via electronic interface contain original data; however they are lacking the format of the original report. Caution should be taken when reading/interpreti ng unformatted reports. Name: ? NASRIN HANEY ? Accession #: ? [id number] : ? 1985 (Age: 17) ??F ?Collect Date: ? 02/28/2003 Location: ? [facility] ? Receive Date: ? 03/04/2003 Provider: ?RAMAN MAYNARD NP Copy to: ? Specimen/Source: ?ThinPrep Pap Test, Cervix/Endocervix Last Menstrual Period: ? 02/05/03 Menstrual/Pregnanc y Status: ? Spontaneous : 12/19/02 Previous Gynecologic Pathology: ? Yes Other: ? HPVDX - HPV testing requested regardless of diagnosis on current ThinPrep Pap test. ? SPECIMEN ADEQUACY ? Satisfactory for Evaluation - transformation zone component present GENERAL CATEGORIZATION ? Negative for Intraepithelial Lesion or Malignancy ? Document reviewed and electronically signed by: ? Kathy E. Meredith, CT(ASCP) ? Report Date: ??03/09/2003 10:04 End of Report [facility] 02/28/2003 03/04/2003 Raman Maynard DISTRIBUTION [employer] CLASS [facility] ORDERABLES Performing Organization Address City/State/[facility] Co de Phone Number [facility] [address] [place] [address] documented in this encounter Visit Diagnoses Not on filedocumented in this encounter Care Teams Cattle Care Worker Relationship Specialty Start Date End Date Unknown, Provider, PCP - General 04/04/09 12/21/19 documented as of this encounter
--- OUTSIDE RECORDS SUMMARY | 2023-12-10 10:59 | XMS_ITS | Encounter Summary ---
[place] [address] Care Team Providers Care Hospitality Services Manager Name Role Phone Brandy Gilman APRN Primary Care Provider [phone]- [phone] Encounter Details Date Type Department Care Team (Late st Contact Info) Description 01/25/2015 Orders [place] [address] Manjula Willis RN Social History Tobacco Use Types Packs/Day Years Used Date Smoking Tobacco: Every Day Cigarettes 0.5 15 Smokeless Tobacco: Never Sex and Gender Information Value Date Recorded Sex Assigned at Not on file Gender Identity Not on file Sexual Orientation Not on file documented as of this encounter Plan of Treatment Not on file documented as of this encounter Visit Diagnoses Not on filedocumented in this encounter Care Teams Hospitality Services Manager Relationship Specialty Start Date End Date Brandy Gilman APRN PCP - General 01/24/14 04/23/15 documented as of this encounter
--- OUTSIDE RECORDS SUMMARY | 2023-12-10 10:59 | XMS_ITS | Encounter Summary ---
Author Organization [facility] [place] [address] Care Team Providers Care Linesperson Name Role Phone Brandy Gilman APRN Primary Care Provider [phone]- [phone] Encounter Details Date Type Department Care Team (Late st Contact Info) Description 02/28/2015 Notes [place] [address] Malik Bridges [facility] [place] [id number] Social History Tobacco Use Types Packs/Day Years Used Date Smoking Tobacco: Every Day Cigarettes 0.5 15 Smokeless Tobacco: Never Sex and Gender Information Value Date Recorded Sex Assigned at Not on file Gender Identity Not on file Sexual Orientation Not on file documented as of this encounter Progress Notes * Malik Bridges DO - 02/28/2015 6:51 PM EST UDS with confirm. Reviewed. In addition to + prescribed medications, UDS does shown evidence of marijuana use. As per discussion with patient on 02/21 - this is a violation of contract and we will nolonger be able to prescribe opioid medications From 02/21 note: Labs: UDS with confirmation and THC urinalysis/confirmation was ordered and collected in the office. I informed the patient that if her urine is positive for marijuana I can no longer prescribed her oxycodone medication in violation of her narcotic contract. She understands. documented in this encounter Plan of Treatment Not on file documented as of this encounter Visit Diagnoses Not on filedocumented in this encounter Care Teams Linesperson Relationship Specialty Start Date End Date Brandy Gilman APRN PCP - General 01/24/14 04/23/15 documented as of this encounter
--- OUTSIDE RECORDS SUMMARY | 2023-12-10 10:59 | XMS_ITS | Encounter Summary ---
Author Organization [facility] Address [address] [place] [address] Care Team Providers Care General Maintenance Helper Name Role Phone Unknown, Provider Primary Care Provider + [phone] Encounter Details Date Type Department Care Team (Late st Contact Info) Description 12/18/2001 Results Only [facility] - Maple conversion [address] [place] [address] Raman Maynard, MARIA GUADALUPE [address] [place] [address] Social History Tobacco Use Types Packs/Day Years Used Date Smoking Tobacco: Never Assessed Sex and Gender Information Value Date Recorded Sex Assigned at Not on file Gender Identity Not on file Sexual Orientation Not on file documented as of this encounter Plan of Treatment Not on file documented as of this encounter Procedures Procedure Name Priority Date/Time Associated Diagnosis Comments CYTOPATHOLOGY Routine 12/18/2001 0:00 EDT documented in this encounter Results * CYTOPATHOLOGY (12/18/2001 0:00 EDT) Pathology Report: CYTOPATHOLOGY REPORT Reports generated via electronic interface contain original data; however they are lacking the format of the original report. Caution should be taken when reading/interpreti ng unformatted reports. Name: ? NASRIN HANEY Rosa ? Accession #: ? [id number] : ? 1985 (Age: 16) ??F ?Collect Date: ? 12/18/2001 Location: ? [facility] ? Receive Date: ? 12/22/2001 Provider: ?RAMAN MAYNARD [place]OUNT[employer] GLACIER GUIDE Copy to: ? Specimen/Source: ?ThinPrep Pap Test, Cervix/Endocervix Last Menstrual Period: ? 12/11/01 Previous Gynecologic Pathology: ? LSIL: 07/07, 11/05 ASC-US: 03/07 ZOHREH I Treatment History: ? Cervical biopsy: 11/10/00 ? SPECIMEN ADEQUACY ? Satisfactory for Evaluation - transformation zone component present GENERAL CATEGORIZATION ? Negative for Intraepithelial Lesion or Malignancy ? Document reviewed and electronically signed by: ? DEMETRIA Harris(ASCP) ? Report Date: ??12/23/2001 12:55 End of Report [facility] 12/18/2001 12/22/2001 Raman Maynard NP PATHOLOGY ORDERABLES [facility] [address] [place] [address] documented in this encounter Visit Diagnoses Not on filedocumented in this encounter Care Teams General Maintenance Helper Relationship Specialty Start Date End Date Unknown, Provider, PCP - General 04/04/09 12/21/19 documented as of this encounter
--- OUTSIDE RECORDS SUMMARY | 2023-12-10 10:59 | XMS_ITS | Encounter Summary ---
Author Organization [facility] Address [address] [place] [address] Care Team Providers Care Coreroom Foundry Laborer Name Role Phone Unavailable Primary Care Provider Unavailabl e Encounter Details Date Type Department Care Team (Late st Contact Info) Description 08/31/2008 Orders Only [facility] [place] [place] [address] [place], [place] [id number] Shadai Barrow CNM [address] [id number] Social History Tobacco Use Types Packs/Day Years Used Date Smoking Tobacco: Never Assessed Sex and Gender Information Value Date Recorded Sex Assigned at Not on file Gender Identity Not on file Sexual Orientation Not on file documented as of this encounter Plan of Treatment Not on file documented as of this encounter Procedures Procedure Name Priority Date/Time Associated Diagnosis Comments CYTOPATHOLOGY Routine 08/31/2008 0:00 EDT documented in this encounter Results * CYTOPATHOLOGY (08/31/2008 0:00 EDT) Pathology Report: CYTOPATHOLOGY REPORT ? Reports generated via electronic interface contain original data; ? however they are lacking the format of the original report. ? Caution should be taken when reading/interpreti ng unformatted reports. ? Name: ? NASRIN HANEY ? Accession #: ? [id number] ? : ? 1985 (Age: 23) ??F ?Collect Date: ? 08/31/2008 ? Location: ? [facility] ? Receive Date: ? 09/01/2008 ? Provider: ?ANEA LELONG CNM ? Copy to: ? Specimen/Source: ?Pap Test, Cervix/Endocervix, ThinPrep Imaging System ? with manual evaluation ? Last Menstrual Period: ? 04/02/09 ? Menstrual/Pregnanc y Status: ? Other: ? HPVA - HPV testing requested if ASC-US on the current ThinPrep Pap test. ? SPECIMEN ADEQUACY ? Satisfactory for Evaluation ? - transformation zone component present ? GENERAL CATEGORIZATION ? Negative for Intraepithelial Lesion or Malignancy ? Document reviewed and electronically signed by: ? Michelle [place], [place](ASCP) ? Report Date: ??09/05/2008 10:39 ? End of Report ? [facility] 08/31/2008 09/01/2008 Shadia Barrow CNM PATHOLOGY ORDERABLES [facility] [address] [place] [address] documented in this encounter Visit Diagnoses Not on filedocumented in this encounter
--- OUTSIDE RECORDS SUMMARY | 2023-12-10 10:59 | XMS_ITS | Encounter Summary ---
Author Organization [facility] [place] [address] Care Team Providers Care Cnc Milling Machine Operator Name Role Phone Brandy Gilman WILMER Primary Care Provider [phone] Reason for Referral * Rehabilitation (Routine) - Declined by Patient Specialty Diagnoses / Procedures Referred By Enedina malhotra Referred To Contact Orthopaedics Diagnoses Chronic pain in right shoulder Malik Bridges [facility] [place] [address] [facility] [address] [place] [id number] Referral ID Status Reason Start Date Expiration Date Visits Requested Visits Authorized [id number] Declined by Patient Consult, Test & Treat 5 02/21/2016 1 1 Scheduling Instructions Right chronic shoulder pain s/p 3 surgeries (AC jt separation, biceps tenodesis). Now with fear avoidance and chronic pain, tight rotator cuff musculature that is limiting her professional and personal life. Reason for Visit * Reason Comments Pain Management Shoulder Pain Encounter Details Date Type Department Care Team (Late st Contact Info) Description 02/21/2015 2:30 PM EST Office [place] [address] Malik Bridges [facility] [place] [address] Chronic pain in right shoulder; Encounter for long-term use of opiate analgesic; Pain management Social History Tobacco Use Types Packs/Day Years Used Date Smoking Tobacco: Every Day Cigarettes 0.5 15 Smokeless Tobacco: Never Sex and Gender Information Value Date Recorded Sex Assigned at Not on file Gender Identity Not on file Sexual Orientation Not on file documented as of this encounter Last Filed Vital Signs Vital Sign Reading Time Taken Comments Blood Pressure 130/79 02/21/2015 2:08 PM EST Pulse 71 02/21/2015 2:08 PM EST Temperature - - Respiratory Rate - - Oxygen Saturation 100% 02/21/2015 2:08 PM EST Inhaled Oxygen Concentration - - Weight 53.5 kg (118 lb) 02/21/2015 2:08 PM EST Height 156.2 cm (5' 1.5) 02/21/2015 2:08 PM EST Body Mass Index 21.93 02/21/2015 2:08 PM EST documented in this encounter Progress Notes * Ulisses Clarke MD - 02/22/2015 6:17 AM EST I was the attending physician supervising the resident in the above care. For the purposes of billing, the resident provided the care. * Malik Bridges DO - 02/21/2015 2:17 PM EST Chief Complaint Patient presents with ??? Pain Management History of the Present Illness: Nasrin Haney is a 29 y.o. female, who was last seen in the office on 01/24 for her chronic right shoulder pain. In the interim Nasrin Haney's pain has remained relatively unchanged. Nasrin Haney reports feeling bumps over her neck and shoulder since starting to use compounding pain cream. She continues with daily Oxycodone, last dose this morning. She stopped taking amitriptyline after no change in nocturnal symptoms at 30mg daily. Exacerbating factors include overhead activity, any lifting and generalized movement of shoulder. Relieving factors are heat and oxycodone. Associated with her shoulder pain is right sided lower neck pain. She cannot tell if her pain radiates from neck to shoulder vs. Shoulder to neck. She denies any adverse effects of the opioid medication. She continues to follow with her Orthopedic surgeon who performed the 3 surgeries (Per patient: rotator cuff repair, biceps tenodesis and AC jt separation repair) and has a repeat MRI of shoulder upcoming. 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 Negative for muscle weakness, myalgias and neck pain Neurological: Positive for above findings. Negative for dizziness, gait problems and weakness Psychiatric: Negative for Depression, PTSD, and Anxiety Past medical, surgical and family history reviewed in chart on today???s visit Current medications and allergy list reviewed in chart on today???s visit Physical Examination: BP 130/79 mmHg Pulse 71 Ht 156.2 cm (5' 1.5) Wt 53.524 kg (118 lb) BMI 21.94 kg/m2 SpO2 100% General: Nasrin Haney is alert, oriented. She is tearful when discussing her current situation andthe limitations caused by her pain. There seems to be a component of fear-avoidance behavior on examination. Gait/Transfers: Observed ambulating with no assistive device and has a nonantalgic gait with no abnormalities limb advancement, stability or foot clearance. Transfers are smooth, easy, and garcia. Shoulder Examination Observation/Posture: Right shoulder is inferiorly depressed. Shoulders are protracted with forward head posture. No exaggerated thoracic kyphosis. Atrophy of bilateral (right slightly moreso than left periscapular muscles). Areas of bumps that she reports noticing since pain cream was started appears to be a portion of her acromion at the most lateral aspect of her shoulder and a possible very small lymph node in the supraclavicular fossa. There is no rash. Palpation: There is tenderness of the right lower cervical paraspinals and trapezius muscle with reproduction of a component of her pain. No allodynia over scar site, which is well healed. Scapular Motion: There is no scapular assymetry or dyskinesis with repeating arm forward flexion and abduction. Active Shoulder Range of Motion: Left Flexion 180 degrees Abduction 180 degrees Internal Rotation/Apply scratch to T6-7 vertebre External Rotation 90 degrees with arm abducted Right Flexion 160 degrees Abduction 120 degrees with pain and a component of fear avoidance Internal Rotation/Apply scratch to L2-3 vertebre External Rotation 90 degrees with arm abducted Passive Glenohumeral Internal Rotation (while stabilizing scapula) range of motion does result in slight asymmetry left compared to right but, No GIRD (<20 difference side to side) Manual Muscle Testing: ShAbd Julienne Leta ShFF EF EE Left 5 5 5 5 5 5 Right 5 5 5 5 5 5 Upper Motor Neuron Signs: Yan's reflex is absent bilaterally. Tone is normal throughout the upper limbs. Special Tests: Test Result Location Neer???s Test Neg for impingement Right Razo-Robert Test Neg for impingement Right Empty Can Test Neg for pain/weakness Right Speed???s Test Neg for biceps tendon pain Right Yerguson???s Test Neg for biceps tendon pain Right Data Reviewed: personally reviewed and interpreted below [place] [facility] Prescription Drug Monitoring Program databases: 02/21/15: Consistent with Oxycodone 5mg prescribed Assessment/Plan: Chronic Pain in Right Shoulder - clinically it appears majority of her pain may be secondary to tight rotator cuff musculature rather than tendinosis of rotator cuff of bicep tendons. She does have acomponent of myofascial pain in her right upper trapezius and low cervical neck that may be primaryvs. Secodnary: improper biomechanics/compensation from shoulder vs. Cervical facet mediated (C5,6,7) Medications: We will continue medication as described below. Although she did not find a response with amitriptyline, this was a relatively low dose and higher dose may be considered in the future. Ihave also recommended she discontinue the pain cream as it did not provide any relief. Imaging: Depending on what her repeat MRI of her shoulder shows, as well as the results of [facility] referral we may consider cervical spine x-rays to assess degree of cervical spondylosis if considering medial branch injections. Interventions: She has found some relief with upper trapezius trigger point injections in the past.These may be repeated in the future however she is hesitant due to her fear of needles. Furthermoreif current workup of shoulder pain does not reveal a intra-articular etiology of her pain may consider evaluation of lower cervical spine more specifically right-sided C5-C6 7 facet joints as a causeof her persistent pain. This can be completed by medial branch block protocol. Referrals: I discussed with the patient the possible role of a functional zoroastrian rehabilitation program. She is interested in learning more. I placed a [facility] referral today. Long-term opioid analgesia treatment - upon discussion with the patient appears these medications allow her to control her pain in order to complete her ADLs. She denies adverse effects of these medications. There does not appear to be in the apparent drug use or misuse of these medications. Medications: A refill of Oxycodone 5mg daily, 28 pills, was provided on today's visit. Upon review of prior UDS. Appears to marijuana for which she has not prescribed. Labs: UDS with confirmation and THC urinalysis/confirmation was ordered and collected in the office. I informed the patient that if her urine is positive for marijuana I can no longer prescribed her oxycodone medication in violation of her narcotic contract. She understands. Follow up: 28 days documented in this encounter Plan of Treatment Scheduled Referrals Name Type Priority Associated Diagnoses Order Schedule Referral to [facility] Assessment Outpatient Referral Routine Chronic pain in right shoulder Ordered: 02/21/2015 documented as of this encounter Procedures Procedure Name Priority Date/Time Associated Diagnosis Comments DRUG SCREEN WITH CONFIRMATION, URINE (SEND OUT) Routine 02/21/2015 2:37 PM EST Encounter for long-term use of opiate analgesic THC (MARIJUANA), URINE, CONFIRMATION Routine 02/21/2015 2:37 PM EST documented in this encounter Results * THC (Marijuana), Urine Confirmation (02/21/2015 2:37 PM EST) Pathologist [facility] U THC Conf Test ? Result ?? Flag ??Unit ?? RefValue Drug of Abuse, THC Conf, U ??GC/MS Confirmation - ? Positive ?THC ??THC Carboxylic Acid ?1822 ? ng/mL ??Cutoff:<3 ---ADDITIONAL INFORMATION----- This report is intended for use in clinical monitoring and management of patients. It is not intended for use in employment-relat ed drug testing. Test Performed by: [facility] [address] [address] Dog Handler: Mela Young, Ph.D. RED SAWYER Urine specimen (specimen) 02/21/2015 2:37 PM EST 02/22/2015 8:33 AM EST Narrative Resulting Agency Comment Spec In Lab Ulisses Clarke MD LAB SEND OUT [facility] RED SAWYER * Drug Screen with Confirmation, Urine (02/21/2015 2:37 PM EST) U ZADNRA w/Conf Test ? Result ?? Flag ??Unit ?? RefValue --------- [facility] Clinic Drug Screen, U ??Amphetamines ? Negative ? ng/mL ??Cutoff: 500 ??Barbiturates ? Negative ? ng/mL ??Cutoff: 200 ??Benzodiazepines ?Negative ? ng/mL ??Cutoff: 200 ??Cocaine Metabolite ? Negative ? ng/mL ??Cutoff: 150 ??Methadone ?Negative ? ng/mL ??Cutoff: 300 ??Opiates ?Positive ? ng/mL ??Cutoff: 300 ??Phencyclidine ?Negative ? ng/mL ??Cutoff: 25 ??Tetrahydrocanna binols ?Positive ? ng/mL ??Cutoff: 50 ??Ethanol ?Negative ? mg/dL ??Cutoff: 10 ??Comment Specimen unusually concentrated. --ADDITIONAL INFORMATION------ Results from this test are presumptive; for positive results refer to the corresponding drug confirmation for the definitive result. This report is intended for use in clinical monitoring and management of patients. It is not intended for use in employment-relate d drug testing. ??Confirmation - Opiates ?? Positive ??Codeine ?Negative ? ng/mL ??<100 ??Hydrocodone ?Negative ? ng/mL ??<100 ??Hydromorphone ?Negative ? ng/mL ??<100 ??Morphine ? Negative ? ng/mL ??<100 ??Oxycodone ?51346 ?ng/mL ??<100 ??Oxymorphone ?6480 ? ng/mL ??<100 --ADDITIONAL INFORMATION------ This report is intended for use in clinical monitoring and management of patients. It is not intended for use in employment-relate d drug testing. Test Performed by: [place] [address] Dog Handler: Mela Young, Ph.D. RED SAWYER Urine specimen (specimen) 02/21/2015 2:37 PM EST 02/22/2015 8:33 AM EST Narrative Resulting Agency Comment Spec In Lab Ulisses Clarke MD URINE ORDERABLES Performing Organization Address City/State/[facility] Co de Phone Number RED SAWYER documented in this encounter Visit Diagnoses Diagnosis Chronic pain in right shoulder Pain in joint, shoulder region Encounter for long-term use of opiate analgesic Encounter for long-term (current) use of other medications Pain management Other specified rehabilitation procedure documented in this encounter Care Teams Cnc Milling Machine Operator Relationship Specialty Start Date End Date Brandy Gilman APRN PCP - General 01/24/14 04/23/15 documented as of this encounter
--- OUTSIDE RECORDS SUMMARY | 2023-12-10 10:59 | XMS_ITS | Encounter Summary ---
Author Organization [facility] Address [address] [place] [address] Care Team Providers Care Electrical Logger Name Role Phone Unknown, Provider Primary Care Provider + [phone] Encounter Details Date Type Department Care Team (Late st Contact Info) Description 06/26/2001 Results Only [facility] - Maple conversion [address] [place] [address] Raman Maynard, MARIA GUADALUPE [address] [place] [address] Social History Tobacco Use Types [...] Priority Date/Time Associated Diagnosis Comments CYTOPATHOLOGY Routine 06/26/2001 0:00 EST documented in this encounter Results * CYTOPATHOLOGY (06/26/2001 0:00 EST) Pathology Report: CYTOPATHOLOGY REPORT Reports generated via electronic interface contain original data; however they are lacking the format of the original report. Caution should be taken when reading/interpreti ng unformatted reports. Name: ? NASRIN HANEY ? Accession #: ? [id number] : ? 1985 (Age: 16) ??F ? N #: ? [id number] ?Collect Date: ? 06/26/2001 Location: ? [facility] ? Receive Date: ? 06/30/2001 Provider: ?RAMAN MAYNARD SUPERVISOR MACHINE WORKERS Copy to: ? Specimen/Source: ?ThinPrep Pap Test, Cervix/Endocervix Last Menstrual Period: ? Previous Gynecologic Pathology: ? LSIL: 11/10/00 ZOHREH I: 11/10/00 ASC-US: 03/07 Treatment History: ? Colposcopy: 11/10/00 Cervical biopsy: 11/10/00 ? SPECIMEN ADEQUACY ? Satisfactory for Evaluation - transformation zone component present GENERAL CATEGORIZATION ? Epithelial Cell Abnormality INTERPRETATION ? Squamous Cell Abnormality - Low grade squamous intraepithelial lesion (LSIL). ? Document reviewed and electronically signed by: ? JÚNIOR VALERIO MD [facility] ? Report Date: ??07/07/2001 15:22 End of Report [facility] 06/26/2001 06/30/2001 Raman Maynard NP PATHOLOGY ORDERABLES [facility] [address] [place] [address] documented in this encounter Visit Diagnoses Not on filedocumented in this encounter Care Teams Electrical Logger Relationship Specialty Start Date End Date Unknown, Provider, PCP - General 04/04/09 12/21/19 documented as of this encounter
--- OUTSIDE RECORDS SUMMARY | 2023-12-10 10:59 | XMS_ITS | Encounter Summary ---
Author Organization [facility] Address [address] [place] [address] Care Team Providers Care Software Tools Build Engineer Name Role Phone Unknown, Provider Primary Care Provider + [phone] Encounter Details Date Type Department Care Team (Late st Contact Info) Description 12/16/[address] [facility] - Maple conversion [address] [place] [address] [address]adia [address] [place], [place] [address] Social History Tobacco Use Types Packs/Day Years [...] Comments HPV DETECTION, HIGH RISK TYPES Routine 12/16/2002 15:00 EDT CYTOPATHOLOGY Routine 12/16/2002 0:00 EDT documented in this encounter Results * HUMAN PAPILLOMA VIRUS DNA TEST (12/16/2002 15:00 EDT) Specimen Description Cervix, ThinPrep vial [facility] Result Negative for HPV types 16, 18, 31, 33, 35, 39, 45, 51, 52, 56, 58, 59, and 68. [facility] Report Status Final [id number] [facility] 12/16/2002 15:0 0 EDT 12/22/2002 11:48 EDT Guy Chavez MD MICROBIOLOGY - GENER AL ORDERABLES [facility] [address] [place] [address] * CYTOPATHOLOGY (12/16/2002 0:00 EDT) Pathology Report: CYTOPATHOLOGY REPORT Reports generated via electronic interface contain original data; however they are lacking the format of the original report. Caution should be taken when reading/interpreti ng unformatted reports. Name: ? NASRIN HANEY ? Accession #: ? [id number] : ? 1985 (Age: 17) ??F ?Collect Date: ? 12/16/2002 Location: ? [facility] ? Receive Date: ? 12/20/2002 Provider: ?SHADIA THOMPSON CN Copy to: ? Specimen/Source: ?ThinPrep Pap Test, Cervix/Endocervix Last Menstrual Period: ? 10/03/02 Menstrual/Pregnanc y Status: ? Previous Gynecologic Pathology: ? ASC-US: 2001 ZOHREH II LSIL Treatment History: ? Colposcopy Other: ? HPVDX - HPV testing requested regardless of diagnosis on current ThinPrep Pap test. ? SPECIMEN ADEQUACY ? Satisfactory for Evaluation - transformation zone component present GENERAL CATEGORIZATION ? Negative for Intraepithelial Lesion or Malignancy INTERPRETATION ? Shift in maricel present suggestive of bacterial vaginosis. ? Document reviewed and electronically signed by: ? Kathy Harper, [place](ASCP) ? Report Date: ??12/22/2002 10:34 End of Report [facility] 12/16/2002 12/20/2002 Shadia Thompson CN PATHOLOGY ORDERABLES Performing Organization Address City/State/[facility] Co de Phone Number [facility] [address] [place] [address] documented in this encounter Visit Diagnoses Not on filedocumented in this encounter Care Teams Software Tools Build Engineer Relationship Specialty Start Date End Date Unknown, Provider, PCP - General 04/04/09 12/21/19 documented as of this encounter
--- OUTSIDE RECORDS SUMMARY | 2023-12-10 10:59 | XMS_ITS | Clinical Summary ---
Author Organization [facility] Address [address] [place] [address] Care Team Providers Care Toby Maker Name Role Phone Bee Levine NP Primary Care Provider [phone] Social History Tobacco Use Types Packs/Day Years Used Date Smoking Tobacco: Never Assessed Interpersonal Safety Answer Date Record ed Physically Hurt Never 12/29/2019 Verbally Threaten Not on file 12/29/2019 Sex and Gender Information Value Date Recorded Sex Assigned at Not on file Gender Identity Not on file Sexual Orientation Not on file Plan of Treatment Health Maintenance Due Date Last Done Comments Hepatitis C Screen 1985 Hepatitis B Vaccine (1 of 3 - 19+ 3-dose series) 03/20 COVID-19 Vaccine ( season) 2022 Care Teams Toby Maker Relationship Specialty Start Date End Date Bee Levine NP PCP - General 12/22/19
--- OUTSIDE RECORDS SUMMARY | 2023-12-10 10:59 | XMS_ITS | Encounter Summary ---
Author Organization [facility] Address [address] [place] [address] Care Team Providers Care Director Executive Communications Name Role Phone Unavailable Primary Care Provider Unavailabl e Encounter Details Date Type Department Care Team (Late st Contact Info) Description 05/04/2008 Before PRISM Converted Visit (Maple) [facility] - Maple conversion [address] [place] [address] Rosaura Carrera MD [address] [place] [address] [place] [address] Social History Tobacco Use Types Packs/Day Years Used Date Smoking Tobacco: Never Assessed Sex and Gender Information Value Date Recorded Sex Assigned at Not on file Gender Identity Not on file Sexual Orientation Not on file documented as of this encounter Plan of Treatment Not on file documented as of this encounter Procedures Procedure Name Priority Date/Time Associated Diagnosis Comments SURGICAL PATHOLOGY Routine 05/04/2008 0:00 EST documented in this encounter Results * SURGICAL PATHOLOGY (05/04/2008 0:00 EST) Pathology Report: SURGICAL PATHOLOGY REPORT ? Reports generated via electronic interface contain original data; ? however they are lacking the format of the original report. ? Caution should be taken when reading/interpreti ng unformatted reports. ? Name: ? YOUNG, NASRIN A ? Accession #: ? [id number] ? : ? 1985 (Age: 23) ??F ? Collect Date: ? 05/04/2008 ? Location: ? [facility] ? Receive Date: ? 05/04/2008 ? Provider: ROSAURA CARRERA MD ? Copy to: RUTH MEJIA MD ? Final Pathologic Diagnosis: ? Ovary, left, cystectomy: ? - Corpus luteum cyst. ? Document reviewed and electronically signed by: ? Roscoe Mcintosh MD ? Report ??Date: 05/09/2008 11:22 ? By the signature above, the attending physician certifies that he/she has ? personally conducted a gross and/or microscopic examination of the described ? specimens and rendered or confirmed the above diagnosis. ? Specimen(s) Received: ? Left ovarian cyst ? Clinical History: ? LLQ pain, left ovarian cyst, uterine anomaly ? Gross Description: ? Received in formalin labelled Young and left ovarian cyst are two ? jeffers-devine, irregular soft tissues with focal adherent clotted blood, 0.6 x 0.3 x 0.2 cm and 1.2 x 0.4 x 0.2 cm. ??The tissues are grossly consistent with ? fragments of cyst wall, and lacks papillary excrescences. ??The fragments are ? submitted intact in a single cassette. ??(Viviana Garcia)/mpl ? End of Report ? REECE MILES 05/04/2008 05/04/2008 16: 33 EST Rosaura Carrera MD PATHOLOGY ORDERABLES [facility] [address] [place] [address] documented in this encounter Visit Diagnoses Not on filedocumented in this encounter
--- OUTSIDE RECORDS SUMMARY | 2023-12-10 10:59 | XMS_ITS | Referral Summary ---
Author Organization [facility] Address [address] [place] [address] Care Team Providers Care Environmental Inspector Name Role Phone Bee Levine NP Primary Care Provider [phone] Social History Tobacco Use Types Packs/Day Years Used Date Smoking Tobacco: Never Assessed Interpersonal Safety Answer Date Record ed Physically Hurt Never 12/29/2019 Verbally Threaten Not on file 12/29/2019 Sex and Gender Information Value Date Recorded Sex Assigned at Not on file Gender Identity Not on file Sexual Orientation Not on file Plan of Treatment Not on file Care Teams Environmental Inspector Relationship Specialty Start Date End Date Bee Levine, MARIA GUADALUPE PCP - General 12/22/19
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
--- OUTSIDE RECORDS SUMMARY | 2023-12-10 10:59 | XMS_ITS | Encounter Summary ---
Author Organization [facility] Address [address] [place] [address] Care Team Providers Care Reading Efficiency Course Director Name Role Phone Bee Levine DESIGN ENGINEER Primary Care Provider [phone] Encounter Details Date Type Department Care Team (Late st Contact Info) Description 09/10/2021 Lab Requisition [facility] Pathology & Laboratory Medicine - [address] [address] Outr Resulting Lab, Provider Social History Tobacco Use Types Packs/Day Years [...] Procedure Name Priority Date/Time Associated Diagnosis Comments ZZCOVID-19 TEST [facility] PCR Today 09/10/2021 12:45 EDT COVID-19 TESTING Routine 09/10/2021 12:4 5 EDT documented in this encounter Results * COVID-19 TEST [facility] PCR (09/10/2021 12:45 EDT) Swab 09/10/2021 12:4 5 EDT 09/11/2021 21:11 EDT Provider Outr Resulting Lab MICROBIOLOGY - GENERAL ORDERABLES [facility] [address] [place] [address] * COVID-19 TESTING (09/10/2021 12:45 EDT) COVID-19 rt-PCR Result Negative Negative 09/12/2021 12:37 EDT [facility] Comment: This test has not been FDA cleared or approved. This test has been authorized by FDA under an EUA for use by authorized laboratories. This test has been authorized only for detection of nucleic acid from 2019-nCoV, not for any other viruses or pathogens. This test is only authorized for the duration of the declaration that circumstances exist justifying the authorization of emergency use of in vitro diagnostic tests for detection and/or diagnosis of 2019-nCoV under section 564(b)(1) of Act, 21 U.S.C ?? 360bbb-3(b) (1), unless the authorization is terminated or revoked sooner. Negative results do not preclude 2019-nCoV infection and should not be used as the sole basis for treatment or other patient management decisions. Negative results must be combined with clinical observations, patient history, and epidemiological information. Testing was performed using the tyrell SARS-CoV-2 assay ([employer] on the Tyrell 6800 System Performing Lab Tyrell 6800 [facility] 09/12/2021 12:37 EDT [facility] Swab 09/10/2021 12:4 5 EDT 09/11/2021 21:11 EDT Provider Outr Resulting Lab MICROBIOLOGY - GENERAL ORDERABLES [facility] [address] [place] [address] documented in this encounter Visit Diagnoses Not on filedocumented in this encounter Care Teams Reading Efficiency Course Director Relationship Specialty Start Date End Date Bee Levine NP PCP - General 12/22/19 documented as of this encounter
--- OUTSIDE RECORDS SUMMARY | 2023-12-10 10:59 | XMS_ITS | Encounter Summary ---
Author Organization [facility] Address [address] [place] [address] Care Team Providers Care Paper Folding Machine Operator Name Role Phone Unknown, Provider Primary Care Provider [phone] Encounter Details Date Type Department Care Team (Late st Contact Info) Description 02/28/2004 Results Only [facility] - Maple conversion [address] [place] [address] Raman Maynard, MARIA GUADALUPE [address] [place] [address] Social History Tobacco Use Types [...] Priority Date/Time Associated Diagnosis Comments CYTOPATHOLOGY Routine 02/28/2004 0:00 EST documented in this encounter Results * CYTOPATHOLOGY (02/28/2004 0:00 EST) Pathology Report: CYTOPATHOLOGY REPORT Reports generated via electronic interface contain original data; however they are lacking the format of the original report. Caution should be taken when reading/interpreti ng unformatted reports. Name: ? NASRIN HANEY ? Accession #: ? [id number] : ? 1985 (Age: 18) ??F ? N #: ? [id number] ?Collect Date: ? 02/28/2004 Location: ? [facility] ? Receive Date: ? 03/02/2004 Provider: ?RAMAN MAYNARD WALKING DRAGLINE OILER Copy to: ? Specimen/Source: ?ThinPrep Pap Test, Cervix/Endocervix Last Menstrual Period: ? 02/06/04 Previous Gynecologic Pathology: ? LSIL: 11/05 & 07/07 ASC-US: 03/07 ZOHREH I Treatment History: ? Colposcopy: LSIL 11/05 & 07/07 Other: ? HPVA - HPV testing requested if ASC-US on the current ThinPrep Pap test. ? SPECIMEN ADEQUACY ? Satisfactory for Evaluation - transformation zone component absent GENERAL CATEGORIZATION ? Negative for Intraepithelial Lesion or Malignancy ? Document reviewed and electronically signed by: ? DEMETRIA Licona(ASCP) ? Report Date: ??03/09/2004 10:15 End of Report [facility] 02/28/2004 03/02/2004 Raman Maynard NP PATHOLOGY ORDERABLES [facility] [address] [place] [address] documented in this encounter Visit Diagnoses Not on filedocumented in this encounter Care Teams Paper Folding Machine Operator Relationship Specialty Start Date End Date Unknown, Provider, PCP - General 04/04/09 12/21/19 documented as of this encounter
--- OUTSIDE RECORDS SUMMARY | 2023-12-10 10:59 | XMS_ITS | Encounter Summary ---
Author Organization [facility] Address [address] [place] [address] Care Team Providers Care Rotary Cutter Feeder Name Role Phone Unknown, Provider Primary Care Provider + [phone] Encounter Details Date Type Department Care Team (Late st Contact Info) Description 09/18/2015 Results Only [facility]- [facility] [phone] Bee Levine, VEGETABLE SORTER [address] [place] [phone] Social History Tobacco Use Types Packs/Day Years Used Date Smoking Tobacco: Never Assessed Sex and Gender Information Value Date Recorded Sex Assigned at Not on file Gender Identity Not on file Sexual Orientation Not on file documented as of this encounter Plan of Treatment Not on file documented as of this encounter Procedures Procedure Name Priority Date/Time Associated Diagnosis Comments PAP TEST- RESULT ONLY Routine 09/18/2015 0:00 EDT documented in this encounter Results * PAP TEST- RESULT ONLY (09/18/2015 0:00 EDT) Pathology Report: CYTOPATHOLOGY REPORT Reports generated via electronic interface contain original data; however they are lacking the format of the original report. Caution should be taken when reading/interpreti ng unformatted reports. Name: ? NARSIN HANEY ? Accession #: ? [id number] ? : ? 1985 (Age: 30) ??F ?Collect Date: ? 09/18/2015 ? Location: ? [facility] ? Receive Date: ? 09/20/2015 ? Provider: BEE GARZON ULTIMATE HOOPS REFEREE Copy to: ? Final Report SPECIMEN ADEQUACY ? Satisfactory for Evaluation - transformation zone component present - scant squamous epithelial component secondary to excessive blood GENERAL CATEGORIZATION ? Negative for Intraepithelial Lesion or Malignancy INTERPRETATION ? Shift in maricel present suggestive of bacterial vaginosis. EDUCATIONAL NOTES/RECOMMENDATI ONS ? An additional slide was prepared and evaluated. Last Menstrual Period: 09/05/2015 Specimen/Source: ??Pap Test, Cervix/Endocervix, ThinPrep Imaging System with manual evaluation Document reviewed and electronically signed by: ? Myah Johnston, DEMETRIA(ASCP)(IAC) ? Report ??Date: 10/03/2015 10:26 HPV with Pap Test ? Date Ordered: ? 10/03/2015 ? Status: ?? Signed Out ?Date Complete: ? 10/05/2015 ? By: ??System Interface ? Date Reported: ? 10/05/2015 ? Interpretation RESULT: Negative for HPV. No E6 or E7 mRNA is detected from HPV types 16,18,31,33,35, 39,45,51,52,56,58, 59,66, and 68 by valve grinder mediated amplification. Comments Document reviewed and electronically signed by: ? System Interface ? Report date: 10/05/2015 By the signature above, the attending physician certifies that he/she has personally conducted a gross and/or microscopic examination of the described specimens and rendered or confirmed the above diagnosis. End of Report [facility] 09/18/2015 09/20/2015 Bee Levine NP PATHOLOGY ORDERABLES [facility] [address] [place] [address] documented in this encounter Visit Diagnoses Not on filedocumented in this encounter Care Teams Rotary Cutter Feeder Relationship Specialty Start Date End Date Unknown, Provider, PCP - General 04/04/09 12/21/19 documented as of this encounter
--- OUTSIDE RECORDS SUMMARY | 2023-12-10 10:59 | XMS_ITS | Encounter Summary ---
Author Organization [facility] Address [address] [place] [address] Care Team Providers Care Certified Nursing Attendant Name Role Phone Unknown, Provider Primary Care Provider [phone] Encounter Details Date Type Department Care Team (Late st Contact Info) Description 10/30/2012 Results Only [facility] [phone] Cinda Cuadra, [facility] [address] [place] [address] Social History Tobacco Use Types Packs/Day Years [...] Diagnosis Comments PAP TEST- RESULT ONLY Routine 10/30/2012 0:00 EDT documented in this encounter Results * PAP TEST- RESULT ONLY (10/30/2012 0:00 EDT) Pathology Report: CYTOPATHOLOGY REPORT Reports generated via electronic interface contain original data; however they are lacking the format of the original report. Caution should be taken when reading/interpreti ng unformatted reports. Name: ? NASRIN HANEY ? Accession #: ? [id number] ? : ? 1985 (Age: 27) ??F ?Collect Date: ? 10/30/2012 ? Location: ? [facility] ? Receive Date: ? 11/02/2012 ? Provider: CINDA CUADRA CN Copy to: RUTH MEJIA MD ? Final Report SPECIMEN ADEQUACY ? Satisfactory for Evaluation - transformation zone component present GENERAL CATEGORIZATION ? Negative for Intraepithelial Lesion or Malignancy ?? Last Menstrual Period: unknown Menstrual/Pregnanc y Status: ?? Previous Gynecologic Pathology: LSIL: 11/05, 07/07 ASC-US: 03/07 Treatment History: Colposcopy: 11/05, 07/07 Other: Additional clinical information: all paps negative with ??negative HPV 12/07, , 02/07, 02/08, 2007, 2008, 09/14 Specimen/Source: ??Pap Test, Cervix/Endocervix, ThinPrep Imaging System with manual evaluation Document reviewed and electronically signed by: ? DEMETRIA Shannon(ASCP) ? Report ??Date: 11/11/2012 09:25 HPV with Pap Test ? Date Ordered: ? 11/11/2012 ? Status: ?? Signed Out ?Date Complete: ? 11/13/2012 ? By: ??System Interface ? Date Reported: ? 11/13/2012 ? Interpretation RESULT: Negative for HPV. No E6 or E7 mRNA is detected from HPV types 16,18,31,33,35, 39,45,51,52,56,58, 59,66, and 68 by instrument room technician mediated amplification. Comments Document reviewed and electronically signed by: ? System Interface ? Report date: 11/13/2012 By the signature above, the attending physician certifies that he/she has personally conducted a gross and/or microscopic examination of the described specimens and rendered or confirmed the above diagnosis. End of Report [facility] 10/30/2012 11/02/2012 Cinda Cuadra CNM PATHOLOGY ORDERAB LES Performing Organization Address City/State/[facility] Co de Phone Number [facility] [address] [place] [address] documented in this encounter Visit Diagnoses Not on filedocumented in this encounter Care Teams Certified Nursing Attendant Relationship Specialty Start Date End Date Unknown, Provider, PCP - General 04/04/09 12/21/19 documented as of this encounter
--- OUTSIDE RECORDS SUMMARY | 2023-12-10 10:59 | XMS_ITS | Encounter Summary ---
Author Organization [facility] Address [address] [place] [address] Care Team Providers Care Plastics And Composites Inspector Name Role Phone Unknown, Provider Primary Care Provider [phone] Encounter Details Date Type Department Care Team (Late st Contact Info) Description 10/04/2009 Results Only [facility] Laboratory Services - [facility] ([facility]) [address] [place], [place] [address] Rashida Monterroso [place], [place] [address] Social History Tobacco Use Types Packs/Day Years [...] Comments HPV DETECTION, HIGH RISK TYPES Routine 10/04/2009 11:40 EDT CYTOPATHOLOGY Routine 10/04/2009 0:00 EDT documented in this encounter Results * HUMAN PAPILLOMA VIRUS DNA TEST (10/04/2009 11:40 EDT) Specimen Description Cervix, ThinPrep vial [facility] Result Negative for HPV types 16, 18, 31, 33, 35, 39, 45, 51, 52, 56, 58, 59, and 68. [facility] Report Status Final 10/19/2009 [facility] 10/04/2009 11:4 0 EDT 10/17/2009 14:10 EDT Rashida Monterroso CNM MICROBIOLOGY - GENER AL ORDERABLES [facility] [address] [place] [address] * CYTOPATHOLOGY (10/04/2009 0:00 EDT) Pathology Report: CYTOPATHOLOGY REPORT ? Reports generated via electronic interface contain original data; ? however they are lacking the format of the original report. ? Caution should be taken when reading/interpreti ng unformatted reports. ? Name: ? NASRIN HANEY ? Accession #: ? [id number] ? : ? 1985 (Age: 24) ??F ?Collect Date: ? 10/04/2009 ? Location: ? [facility] ? Receive Date: ? 10/05/2009 ? Provider: ?RASHIDA MONTERROSO CNM ? Copy to: ? Specimen/Source: ?Pap Test, Cervix/Endocervix, ThinPrep Imaging System ? with manual evaluation ? Last Menstrual Period: ? 4/2/09 ? Hormonal/Contracep tive Status: ? Depo-Provera ? Previous Gynecologic Pathology: ? LSIL: 8/01, 4/02 ? ASC-US: 12/01 ? ZOHREH I ? Treatment History: ? Colposcopy: LSIL 8/01, 4/02 ? Other: ? HPVA - HPV testing requested if ASC-US on the current ThinPrep Pap test. ? SPECIMEN ADEQUACY ? Satisfactory for Evaluation ? - transformation zone component present ? GENERAL CATEGORIZATION ? Negative for Intraepithelial Lesion or Malignancy ? INTERPRETATION ? Reactive cellular changes associated with inflammation present (includes ?? repair). ? Document reviewed and electronically signed by: ? Louis Dangelo MD ? Report Date: ??10/13/2009 15:49 ? End of Report ? [facility] 10/04/2009 10/05/2009 Rashida Monterroso CNM PATHOLOGY ORDERABLES Performing Organization Address City/State/[facility] Co de Phone Number [facility] [address] [place] [address] documented in this encounter Visit Diagnoses Not on filedocumented in this encounter Care Teams Plastics And Composites Inspector Relationship Specialty Start Date End Date Unknown, Provider, PCP - General 04/04/09 12/21/19 documented as of this encounter
--- OUTSIDE RECORDS SUMMARY | 2023-12-10 10:59 | XMS_ITS | Encounter Summary ---
Author Organization [facility] Address [address] [place] [address] Care Team Providers Care Figurine Maker Name Role Phone Unknown, Provider Primary Care Provider [phone] Bee Levine NP Primary Care Provider [phone] Encounter Details Date Type Department Care Team (Late st Contact Info) Description 12/17/2019 Lab Requisition [facility] Pathology & Laboratory Medicine - [facility] [address] [place] [address] Cordell Thomas MD [address] [place] [address] Encounter for other general examination Social History Tobacco Use Types Packs/Day Years Used Date Smoking Tobacco: Never Assessed Sex and Gender Information Value Date Recorded Sex Assigned at Not on file Gender Identity Not on file Sexual Orientation Not on file documented as of this encounter Plan of Treatment Not on file documented as of this encounter Procedures Procedure Name Priority Date/Time Associated Diagnosis Comments PAP TEST Today 12/17/2019 11:35 EDT Encounter for other general examination CHLAMYDIA/N. GONORRHOEAE AMPLIFIED NUCLEIC ACID, THINPREP Today 12/17/2019 11:35 EDT HPV DNA DETECTION WITH GENOTYPING, PCR Today 12/17/2019 11:35 EDT Encounter for other general examination documented in this encounter Results * HUMAN PAPILLOMAVIRUS (HPV) DETECTION-HIGH RISK TYPES (12/17/2019 11:35 EDT) HPV other High Risk types, PCR Negative Negative 12/27/2019 15:22 T [facility] Comment:No E6 or E7 mRNA is detected from HPV types 16,18,31,33,35,39,45,51,52,56,58,59,66, and 68 by try on baster mediated amplification. Papanicolaou smear specimen (specimen) CERVIX UTERI STRUCTURE / Unknown 12/17/2019 11:35 EDT 12/26/2019 19:29 EDT Cordell Thomas MD MICROBIOLOGY - GENER AL ORDERABLES [facility] [address] [place] [address] * PAP TEST (12/17/2019 11:35 EDT) Specimens A. Cervix and/or Endocervix , ThinPrep Imaging System with Manual Evaluation 12/27/2019 15:22 T [facility] Specimen Adequacy Satisfactory for Evaluation - transformation zone component present 12/27/2019 15:22 [facility] General Categorization Negative for intraepithelial lesion or malignancy 12/27/2019 15:22 [facility] Descriptive Diagnosis Shift in maricel present suggestive of bacterial vaginosis. 12/27/2019 15:22 [facility] Attestation . 12/27/2019 15:22 [facility] at 1522 Clinical History NONE 12/27/19 20 15:22 T [facility] HPV The result for the Human Papillomavirus (HPV) Detection-High Risk Types is Negative. No E6 or E7 mRNA is detected from HPV types 16,18,31,33,35,39 ,45,51,52,56,58,5 9,66, and 68 by try on baster mediated amplification.Sade ting was performed on specimen [id number] and was resulted on 12/27/2019 1518 EDT by TOPHER, LAB INSTRUMENT RESULTS IN 12/27/2019 15:22 T [facility] Performing Lab [facility] 12/27/2019 15:22 EDT [facility] Scanned Images 12/27/2019 15:22 EDT [facility] Papanicolaou smear specimen (specimen) CERVIX UTERI STRUCTURE / Unknown 12/17/2019 11:35 EDT 12/21/2019 9:17 EDT Cordell Thomas MD PATHOLOGY ORDERABLES Performing Organization Address City/[facility]/ZIP Co de Phone Number [facility] [address] [place] [address] * CHLAMYDIA/N. GONORRHOEAE AMPLIFIED RNA, THINPREP (12/17/2019 11:35 EDT) Neisseria gonorrhoeae Result Negative Negative 12/21/2019 14:39 EDT [facility] Chlamydia trachomatis Result Negative Negative 12/21/2019 14:39 EDT [facility] Papanicolaou smear specimen (specimen) CERVIX UTERI STRUCTURE / Unknown 12/17/2019 11:35 EDT 12/20/2019 10:56 EDT Cordell Thomas MD MICROBIOLOGY - GENER AL ORDERABLES Performing Organization Address City/[facility]/ZIP Co de Phone Number [facility] [address] [place] [address] documented in this encounter Visit Diagnoses Diagnosis Encounter for other general examination documented in this encounter Care Teams Figurine Maker Relationship Specialty Start Date End Date Unknown, Provider, PCP - General 04/04/09 12/21/19 Bee Levine NP PCP - General 12/22/19 documented as of this encounter
--- OUTSIDE RECORDS SUMMARY | 2023-12-10 10:59 | XMS_ITS | Encounter Summary ---
Author Organization [facility] Address [address] [place] [address] Care Team Providers Care Pantry Worker Name Role Phone Bee Levine WIRE TWISTER Primary Care Provider [phone] Encounter Details Date Type Department Care Team (Late st Contact Info) Description 12/22/2019 Lab Requisition [facility] Pathology & Laboratory Medicine - [address] [address] Cordell Thomas MD [address] [place] [id number] Encounter for other general examination Social History [...] Priority Date/Time Associated Diagnosis Comments SURGICAL PATHOLOGY Today 12/22/2019 8: 15 EDT Encounter for other general examination documented in this encounter Results * SURGICAL PATHOLOGY (12/22/2019 8:15 EDT) Final Diagnosis A. OVARY, LEFT, CYST, CYSTECTOMY: - Corpus luteal cyst. 12/28/2019 16:43 EDT [facility] Attestation There was significant resident/fellow involvement in the diagnostic evaluation of this case. By the signature below, the attending physician certifies that they have personally conducted a gross and/or microscopic examination of the described specimens and rendered or confirmed the above diagnosis. 12/28/2019 16:43 EDT [facility] at 1643 Clinical History Ovarian cyst 12/28/2019 16:43 EDT [facility] Gross Description A. Received in formalin labelled with proper patient identification (initials Y, M) and left ovarian cyst is a previously disrupted cyst (1.7 x 1.4 x 0.5 cm). The outer surface is smooth, devine-pink. The inner lining is smooth to wrinkled and without excrescences or gross lesions. The wall averages 0.1 cm in thickness. No normal ovarian parenchyma is present. Director Social Service sections are submitted in A1. PATT MATTHEWS 12/23/2019 8:02 12/28/2019 16:43 EDT [facility] Resident/Jasmeet w: Mark Francois MD 12/28/2019 16:43 EDT [facility] Performing Lab [facility] 12/28/2019 16:43 EDT [facility] Scanned Images 12/28/2019 16:43 EDT [facility] Tissue ENTIRE OVARY / Unknown 12/22/2019 8:15 EDT 12/22/2019 17:20 EDT Cordell Thomas MD PATHOLOGY ORDERABLES [facility] [address] [place] [address] documented in this encounter Visit Diagnoses Diagnosis Encounter for other general examination documented in this encounter Care Teams Pantry Worker Relationship Specialty Start Date End Date Bee Levine NP PCP - General 12/22/19 documented as of this encounter
--- OUTSIDE RECORDS SUMMARY | 2023-12-10 10:59 | XMS_ITS | Encounter Summary ---
Author Organization [facility] Address [address] [place] [address] Care Team Providers Care Scorekeeper Name Role Phone Unknown, Provider MD Primary Care Provider [phone] Bee Levine PLATE FORMER Primary Care Provider [phone] Encounter Details Date Type Department Care Team (Late st Contact Info) Description 12/17/2019 Lab Requisition [facility] Pathology & Laboratory Medicine - [facility] [address] [place] [address] Outr Resulting Lab, Provider Social History Tobacco [...] Procedure Name Priority Date/Time Associated Diagnosis Comments DO NOT ORDER STANDALONE - BROAD COVID TEST Today 12/17/2019 14:17 EDT COVID-19 TESTING Routine 12/17/2019 14:1 7 EDT documented in this encounter Results * DO NOT ORDER STANDALONE - BROAD COVID TEST (12/17/2019 14:17 EDT) COVID-19 rt-PCR Result NEGATIVE Negative 12/18/2019 17:54 EDT [facility] Comment: 2019-novel Coronavirus (2019-nCoV) not detected by the qRT-PCR assay. Consider testing for other respiratory viruses or re-collecting for 2019-nCoV testing. Note: Optimum timing for peak viral levels during infections caused by 2019-nCoV have not been determined. Collection of multiple specimens from the same patient may be necessary to detect the virus. Limitations Positive results are indicative of active infection with SARS-CoV-2 but do not rule out bacterial infection or co-infection with other viruses. The agent detected may not be the definite cause of disease. In addition, detection of viral RNA may not indicate the presence of infectious virus or that SARS-CoV-2 is the causative agent for clinical symptoms. Negative results do not preclude SARS-CoV-2 infection and should not be used as the sole basis for patient management decisions. Negative results must be combined with clinical observations, patient history, and epidemiological information. False negative results may also occur if amplification inhibitors are present in the specimen or if inadequate numbers of organisms are present in the specimen. Optimum specimen types and timing for peak viral levels during infections caused by SARS-CoV-2 have not been fully determined. Collection of multiple specimens (types and time points) from the same patient may be necessary to detect the virus. The test was validated for use with upper respiratory specimens obtained via nasopharyngeal or oropharyngeal swabs in VTM, UTM, M4, M5, M6, saline, and MTM media. The performance of this test has not been established for other specimens. Specimens collected using other FDA recommended Specimen Collection Materials listed in the FDA COVID-19 [employer] communication (July 01, 2019) are processed with the caveat that they were not all validated for use with this test and the result must be interpreted in this context. Furthermore, a false negative results may occur if a specimen is improperly collected, transported or handled. If the virus mutates in the RT-PCR target region, SARS-CoV-2 may not be detected or may be detected less predictably. Inhibitors or other types of interference may produce a false negative result. An interference study evaluating the effect of common cold medications was not performed. This test is not FDA-cleared but its performance characteristics were established by our CLIA-certified, CAP-accredited, high complexity laboratory in accordance with CLIA regulations, College of Pryde[employer] (CAP) guidelines (Jun 24, 2019), and FDA guidance (Jun 05, 2019). This test is only for use under the Food and Drug Administration's Emergency Use Authorization. Swab ENTIRE NASOPHARYNX / Unknown 12/17/2019 14:17 EDT 12/17/2019 21:24 EDT Provider Outr Resulting Lab MICROBIOLOGY - GENERAL ORDERABLES [facility] [place], [place] * COVID-19 TESTING (12/17/2019 14:17 EDT) COVID-19 rt-PCR Result NEGATIVE Negative 12/18/2019 20:24 EDT [facility] Comment: 2019-novel Coronavirus (2019-nCoV) not detected by the qRT-PCR assay. Consider testing for other respiratory viruses or re-collecting for 2019-nCoV testing. Note: Optimum timing for peak viral levels during infections caused by 2019-nCoV have not been determined. Collection of multiple specimens from the same patient may be necessary to detect the virus. Limitations Positive results are indicative of active infection with SARS-CoV-2 but do not rule out bacterial infection or co-infection with other viruses. The agent detected may not be the definite cause of disease. In addition, detection of viral RNA may not indicate the presence of infectious virus or that SARS-CoV-2 is the causative agent for clinical symptoms. Negative results do not preclude SARS-CoV-2 infection and should not be used as the sole basis for patient management decisions. Negative results must be combined with clinical observations, patient history, and epidemiological information. False negative results may also occur if amplification inhibitors are present in the specimen or if inadequate numbers of organisms are present in the specimen. Optimum specimen types and timing for peak viral levels during infections caused by SARS-CoV-2 have not been fully determined. Collection of multiple specimens (types and time points) from the same patient may be necessary to detect the virus. The test was validated for use with upper respiratory specimens obtained via nasopharyngeal or oropharyngeal swabs in VTM, UTM, M4, M5, M6, saline, and MTM media. The performance of this test has not been established for other specimens. Specimens collected using other FDA recommended Specimen Collection Materials listed in the FDA COVID-19 [employer] communication (July 01, 2019) are processed with the caveat that they were not all validated for use with this test and the result must be interpreted in this context. Furthermore, a false negative results may occur if a specimen is improperly collected, transported or handled. If the virus mutates in the RT-PCR target region, SARS-CoV-2 may not be detected or may be detected less predictably. Inhibitors or other types of interference may produce a false negative result. An interference study evaluating the effect of common cold medications was not performed. This test is not FDA-cleared but its performance characteristics were established by our CLIA-certified, CAP-accredited, high complexity laboratory in accordance with CLIA regulations, College of Prydeinig Pathologists (CAP) guidelines (Jun 24, 2019), and FDA guidance (Jun 05, 2019). This test is only for use under the Food and Drug Administration's Emergency Use Authorization. Performing Lab [facility] 12/18/2019 20:24 EDT [facility] Swab 12/17/2019 14:1 7 EDT 12/17/2019 21:24 EDT Provider Outr Resulting Lab MICROBIOLOGY - GENERAL ORDERABLES [facility] [address] [place] [id number] [place] [address] LABORATORY [place], [place] documented in this encounter Visit Diagnoses Not on filedocumented in this encounter Care Teams Scorekeeper Relationship Specialty Start Date End Date Unknown, Provider, PCP - General 04/04/09 12/21/19 Bee Levine NP PCP - General 12/22/19 documented as of this encounter
--- OUTSIDE RECORDS SUMMARY | 2023-12-10 10:59 | XMS_ITS | Encounter Summary ---
Author Organization [facility] Address [address] [place] [address] Care Team Providers Care Junior Systems Administrator Name Role Phone Unknown, Provider Primary Care Provider [phone] Encounter Details Date Type Department Care Team (Late st Contact Info) Description 02/09/[address] [facility] [address] [place] [address] Pedrito Caceres MD [address] [place] [address] Social History Tobacco Use Types Packs/Day Years Used Date Smoking Tobacco: Never Assessed Sex and Gender Information Value Date Recorded Sex Assigned at Not on file Gender Identity Not on file Sexual Orientation Not on file documented as of this encounter Plan of Treatment Not on file documented as of this encounter Procedures Procedure Name Priority Date/Time Associated Diagnosis Comments SURGICAL PATHOLOGY Routine 02/09/2001 0:00 EST documented in this encounter Results * SURGICAL PATHOLOGY (02/09/2001 0:00 EST) Pathology Report: SURGICAL PATHOLOGY REPORT Reports generated via electronic interface contain original data; however they are lacking the format of the original report. Caution should be taken when reading/interpreti ng unformatted reports. Name: ? NASRIN HANEY ? Accession #: ? [id number] ? : ? 1985 (Age: 15) ??F ? Collect Date: ? 02/09/2001 ? Location: ? [facility] ? Receive Date: ? 02/09/2001 ? Provider: PEDRITO CACERES MD Copy to: JAY AVILA MD ? Final Pathologic Diagnosis: ? Appendix, appendectomy: - Acute suppurative appendicitis with periappendicitis. Document reviewed and electronically signed by: ARIES SEGOVIA MD Report ??Date: 02/11/2001 15:18 By the signature above, the attending physician certifies that he/she has personally conducted a gross and/or microscopic examination of the described specimens and rendered or confirmed the above diagnosis. Specimen(s) Received: ? Appendix Clinical History: ? Appendicitis Gross Description: ? Received in formalin labelled Young and appendix is the product of an appendectomy which measures 8.5 cm in length with a maximum diameter of 2.5 cm. The vermiform appendix has a pale gan, focally hemorrhagic serosal surface and a moderate amount of yellow, lobulated adipose tissue which appears hemorrhagic along the distal 2.0 cm segment. ??No apparent defects in the appendix wall are noted. ??The distal tip is amputated revealing a hemorrhagic, purulent exudate within the appendiceal lumen. ??Serial sectioning of the appendix reveals the same purulent, hemorrhagic exudate throughout the lumen. ??The maximum luminal diameter is 1.1 cm, and the maximum wall thickness is 0.2 cm. ??The mucosal surface is purple-gan and no wall defects are noted. ??Multiple fecaliths measuring 0.7 to 0.2 cm in maximum diameter are noted throughout the length of the appendix. ??The proximal resection margin is black inked. ??The proximal, bisected distal tip is submitted as (A1) and a payroll representative middle section and proximal resection margin are submitted as (A2). ??(A. Mcintosh-AK)/aide End of Report [facility] 02/09/2001 02/09/2001 15: 39 EST Pedrito Caceres MD PATHOLOGY ORDERABLE S [facility] [address] [place] [address] documented in this encounter Visit Diagnoses Not on filedocumented in this encounter Care Teams Junior Systems Administrator Relationship Specialty Start Date End Date Unknown, Provider, PCP - General 04/04/09 12/21/19 documented as of this encounter
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
--- OUTSIDE RECORDS SUMMARY | 2023-12-10 10:59 | XMS_ITS | Encounter Summary ---
Author Organization [facility] Address [address] [place] [address] Care Team Providers Care Data Services Developer Name Role Phone Bee Levine EMAIL DEPLOYMENT SPECIALIST Primary Care Provider [phone] Encounter Details Date Type Department Care Team (Late st Contact Info) Description 01/21/2020 Lab Requisition [facility] Pathology & Laboratory Medicine - [address] [address] Outr Resulting Lab, Provider Social History Tobacco [...] Comments ZZCOVID-19 TEST [facility] PCR Today 01/21/2020 14:05 EDT COVID-19 TESTING Routine 01/21/2020 14:0 5 EDT documented in this encounter Results * COVID-19 TEST [facility] PCR (01/21/2020 14:05 EDT) Swab ENTIRE NASOPHARYNX / Unknown 01/21/2020 14:05 EDT 01/21/2020 20:59 EDT Provider Outr Resulting Lab MICROBIOLOGY - GENERAL ORDERABLES [facility] [address] [place] [address] * COVID-19 TESTING (01/21/2020 14:05 EDT) COVID-19 rt-PCR Result Negative Negative 01/22/2020 1:49 EDT [facility] Comment: This test has not [...] clinical observations, patient history, and epidemiological information. Performed on the Imimtekher Fusion instrument Performing Lab [place] [facility] Lab 01/22/2020 1:49 EDT [facility] Swab 01/21/2020 14:0 5 EDT 01/21/2020 20:59 EDT Provider Outr Resulting Lab MICROBIOLOGY - GENERAL ORDERABLES [facility] [address] [place] [address] documented in this encounter Visit Diagnoses Not on filedocumented in this encounter Care Teams Data Services Developer Relationship Specialty Start Date End Date Bee Levine NP PCP - General 12/22/19 documented as of this encounter
--- OUTSIDE RECORDS SUMMARY | 2023-12-10 10:59 | XMS_ITS | Encounter Summary ---
Author Organization [facility] Address [address] [place] [address] Care Team Providers Care Teacher Adult Education Name Role Phone Unavailable Primary Care Provider Unavailabl e Encounter Details Date Type Department Care Team (Late st Contact Info) Description 12/30/2001 18:23 EDT Hospital Encounter [facility] - Other [address] [place] [address] Anuja Lynch MD PhD [address] [place] [phone] Unknown, Provider, Discharge Disposition: Auto Discharge Social History Tobacco Use Types Packs/Day Years Used Date Smoking Tobacco: Never Assessed Sex and Gender Information Value Date Recorded Sex Assigned at Not on file Gender Identity Not on file Sexual Orientation Not on file documented as of this encounter Discharge Disposition Disposition Code Departure Means Destination Auto Discharge documented in this encounter Plan of Treatment Pending Results Name Type Priority Associated Diagnoses Date /Time SURGICAL PATHOLOGY Pathology Routine 2008 0:00 EST SURGICAL PATHOLOGY Pathology Routine 2008 0:00 EST Scheduled Orders Name Type Priority Associated Diagnoses Orde r Schedule SURGICAL PATHOLOGY Pathology Routine For me dications that can be administered at any time during the hospitalization for visit such as immunizations. for 1 Occurrences starting 04/03/2009 SURGICAL PATHOLOGY Pathology Routine For me dications that can be administered at any time during the hospitalization for visit such as immunizations. for 1 Occurrences starting 04/03/2009 documented as of this encounter Procedures Procedure Name Priority Date/Time Associated Diagnosis Comments SURGICAL PATHOLOGY Routine 03/28/2009 0:00 EST documented in this encounter Results * SURGICAL PATHOLOGY (03/28/2009 0:00 EST) Pathology Report: SURGICAL PATHOLOGY REPORT ? Reports generated via electronic interface contain original data; ? however they are lacking the format of the original report. ? Caution should be taken when reading/interpreti ng unformatted reports. ? Name: ? NASRIN HANEY ? Accession #: ? [id number] ? : ? 1985 (Age: 24) ??F ? Collect Date: ? 03/28/2009 ? Location: ? [facility] ? Receive Date: ? 03/29/2009 ? Provider: RASHIDA MONTERROSO CNM ? Copy to: RUTH ROBERTO MD ? Final Pathologic Diagnosis: ? Late third trimester lanier placenta: ? 1. ?Umbilical cord and membranes with no abnormalities. ? 2. ? Placenta, small for gestation, with distal villous hypoplasia and chronic villitis. ? Document reviewed and electronically signed by: ? Valeria Hernandez MD ? Report ??Date: 04/05/2009 14:07 ? By the signature above, the attending physician certifies that he/she has ? personally conducted a gross and/or microscopic examination of the described ? specimens and rendered or confirmed the above diagnosis. ? Specimen(s) Received: ? Placenta ? Clinical History: ? Placenta SGA baby ? substance abuse/tobacco use/second hand smoke; LMP: ? 04/02/09, 36+6 ? Gross Description: ? Received in formalin labelled Young, Nasrin and placenta is a ? lanier placenta with an eccentrically inserted umbilical cord located 4.0 cm from the nearest peripheral edge. ??The umbilical cord measures 21.2 cm in length by 1.0 cm in diameter. ??The Imperial's jelly is an opaque white. ??There are no ?? true or false knots. ??Serial sectioning through the umbilical cord reveals three vessels. ??The site of rupture is 8.5 cm from the nearest peripheral edge. ??There is a 0.5 cm in greatest dimension possible yolk sac remnant on the ? membranes. ??The membranes are marginally inserted and translucent and ? otherwise unremarkable. ??The placenta weighs 350 grams after removal of ? umbilical cord and membranes and is oval-shaped measuring 16.5 x 16.0 x ?? 2.0 cm. ??The surface is blue-jeffers with a normal arborizing pattern. ??The ?? maternal surface has intact cotyledons. ??Serial sectioning through the placental disc reveals predominantly a red, beefy, homogeneous cut surface with focal ? white areas on the maternal surface. ??Front Desk Clerk sections are submitted as ?? follows: ? BLOCK WATERMAN ? A1 ?Umbilical cord and yolk sac remnants ? A2 ? membranes ? A3, A4 ?Placental disc ? (Dr. Le)/mpl ? End of Report ? [facility]EE[facility] MILES 03/28/2009 03/29/2009 14: 20 EST Rashida Monterroso CNM PATHOLOGY ORDERABLES [facility] [address] [place] [address] documented in this encounter Visit Diagnoses Not on filedocumented in this encounter
--- OUTSIDE RECORDS SUMMARY | 2023-12-10 10:59 | XMS_ITS | Encounter Summary ---
Author Organization [facility] Address [address] [place] [address] Care Team Providers Care Wood Gouger Name Role Phone Unknown, Provider Primary Care Provider + [phone] Encounter Details Date Type Department Care Team (Late st Contact Info) Description 04/22/2007 Results Only [facility] - [facility] [address] [place] [address] Roddy Kwok, MARIA GUADALUPE [address] [place] [address] Social History Tobacco Use Types Packs/Day Years Used Date Smoking Tobacco: Never Assessed Sex and Gender Information Value Date Recorded Sex Assigned at Not on file Gender Identity Not on file Sexual Orientation Not on file documented as of this encounter Plan of Treatment Not on file documented as of this encounter Procedures Procedure Name Priority Date/Time Associated Diagnosis Comments CYTOPATHOLOGY Routine 04/22/2007 0:00 EST documented in this encounter Results * CYTOPATHOLOGY (04/22/2007 0:00 EST) Pathology Report: CYTOPATHOLOGY REPORT Reports generated via electronic interface contain original data; however they are lacking the format of the original report. Caution should be taken when reading/interpreti ng unformatted reports. Name: ? NASRIN HANEY ? Accession #: ? [id number] : ? 1985 (Age: 22) ??F ?Collect Date: ? 04/22/2007 Location: ? [facility] ? Receive Date: ? 04/23/2007 Provider: ?RODDY KWOK CODE CLERK Copy to: ? Specimen/Source: ?ThinPrep Pap Test, Cervix/Endocervix, processed on [employer] ThinPrep Imaging System, with manual evaluation Last Menstrual Period: ? 04/05/07 Hormonal/Contracep tive Status: ? Control Pills: in past Other: ? Additional clinical information: abnormal in past ? SPECIMEN ADEQUACY ? Satisfactory for Evaluation - transformation zone component absent GENERAL CATEGORIZATION ? Negative for Intraepithelial Lesion or Malignancy ? Document reviewed and electronically signed by: ? Rashida Espinoza, SCT(ASCP) ? Report Date: ??04/29/2007 09:39 End of Report [facility]EE[facility] MILES 04/22/2007 04/23/2007 Roddy Kwok NP PATHOLOGY ORDERABLES Performing Organization Address City/State/[facility] Co de Phone Number REECE MILES [address] [place] [address] documented in this encounter Visit Diagnoses Not on filedocumented in this encounter Care Teams Wood Gouger Relationship Specialty Start Date End Date Unknown, Provider, PCP - General 04/04/09 12/21/19 documented as of this encounter
--- OUTSIDE RECORDS SUMMARY | 2023-12-10 10:59 | XMS_ITS | Encounter Summary ---
Author Organization [facility] Address [address] [place] [address] Care Team Providers Care Bed Teacher Name Role Phone Unknown, Provider Primary Care Provider + [phone] Encounter Details Date Type Department Care Team (Late st Contact Info) Description 12/19/2002 Results Only [facility] - [facility] conversion [address] [place] [address] Guy Gomez MD [address] [place] [address] [phone] Social History Tobacco Use Types Packs/Day Years Used Date Smoking Tobacco: Never Assessed Sex and Gender Information Value Date Recorded Sex Assigned at Not on file Gender Identity Not on file Sexual Orientation Not on file documented as of this encounter Plan of Treatment Not on file documented as of this encounter Procedures Procedure Name Priority Date/Time Associated Diagnosis Comments SURGICAL PATHOLOGY Routine 12/19/2002 0:00 EDT documented in this encounter Results * SURGICAL PATHOLOGY (12/19/2002 0:00 EDT) Pathology Report: SURGICAL PATHOLOGY REPORT Reports generated via electronic interface contain original data; however they are lacking the format of the original report. Caution should be taken when reading/interpreti ng unformatted reports. Name: ? NASRIN HANEY ? Accession #: ? [id number] ? : ? 1985 (Age: 17) ??F ? Collect Date: ? 12/19/2002 ? Location: ? [facility] ? Receive Date: ? 12/22/2002 ? Provider: GUY GOMEZ MD Copy to: RUTH MEJIA MD ? Final Pathologic Diagnosis: ? Uterine cavity, products of conception, evacuation: 1. ?Immature, focally hydropic and hyalinized chorionic villi, scant decidua, and gestational endometrium identified. 2. ?Scant necrotic tissue present. Document reviewed and electronically signed by: JAY ORTIZ MD Report ??Date: 12/23/2002 20:57 By the signature above, the attending physician certifies that he/she has personally conducted a gross and/or microscopic examination of the described specimens and rendered or confirmed the above diagnosis. Specimen(s) Received: ? Products of conception Clinical History: ? Products of conception Gross Description: ? Received in formalin labelled Young and products of conception is a devine-pink, previously incised, sac-like structure measuring 2.5 x 2.0 x 0.5 cm. There is a copious amount of attached mucinous material. ??No parts are grossly identified. ??The soft tissue fragments are entirely submitted as (A1) and (A2). ??The attached mucinous material is not submitted. ??(Laverne Garcia/guillermina End of Report REE[facility] MILES 12/19/2002 12/22/2002 8:4 5 EDT Guy Gomez MD PATHOLOGY ORDERABLES Performing Organization Address City/State/[facility] Co de Phone Number REECE MILES [address] [place] [address] documented in this encounter Visit Diagnoses Not on filedocumented in this encounter Care Teams Bed Teacher Relationship Specialty Start Date End Date Unknown, Provider, PCP - General 04/04/09 12/21/19 documented as of this encounter
--- OUTSIDE RECORDS SUMMARY | 2023-12-10 10:59 | XMS_ITS | Clinical Summary ---
Author Organization [facility] Address [facility] [place] [address] Care Team Providers Care Multimedia Engineer Name Role Phone Bee Levine APRN Primary Care Provider [phone] Allergies Active Allergy Reactions Criticality Noted Date Comments Aspirin Other (See Comments) Rash, Nosebleeds Ibuprofen Other (See Comments) 01/21/2014 Precaution because of liver surgery Nsaids (Non-Steroidal Anti-Inflammatory Drug) Other (See Comments) stomach problems Penicillins Rash Tramadol Rash 01/21/2014 Medications Medication Sig Dispensed Refills Start Date End Date Status albuterol (PROVENTIL HFA;VENTOLIN HFA) 90 mcg/actuation HFA Aerosol Inhaler Inhale 2 puffs into the lungs every 4 hours as needed. Use with spacer Active Capsaicin-Menthol (SALONPAS) 0.025-1.25 % Adhesive Patch, Medicated Apply topically as needed. Active oxyCODONE (ROXICODONE) 5 mg TabletIndications:Ch ronic pain in right shoulder,Pain management Take 1 tablet by mouth daily as needed for Pain. NTE 1 tab per day 28 tablet 0 03/21/2015 Active cyclobenzaprine (FLEXERIL) 10 mg Tablet Take 1 tablet by mouth daily as needed for Muscle spasms. 30 tablet 0 03/21/2015 Active Active Problems Patient Care Coordination No te Formatting of this note migh t be different from the original. NARCOTIC CONTRACT with Pain Management 01/21/14. Voided on 03/21/15 due to use of THC. Problem Noted Date Diagnosed Date Chronic pain in right shoulder 06/07/2014 Muscle pain 03/22/2014 Immunizations Name Administration Dates Next Due Influenza (Novel [id number]) Injectable 02/15/2009 Influenza Vaccine, Whole 02/02/2009 Social History Tobacco Use Types Packs/Day Years Used Date Smoking Tobacco: Every Day Cigarettes 0.5 15 Smokeless Tobacco: Never Sex and Gender Information Value Date Recorded Sex Assigned at Not on file Gender Identity Not on file Sexual Orientation Not on file Last Filed Vital Signs Vital Sign Reading Time Taken Comments Blood Pressure 105/63 03/21/2015 9:22 AM EST Pulse 67 03/21/2015 9:22 AM EST Temperature 36.6 ??C (97.9 ??F) 11/29/2014 11:05 AM E DT Respiratory Rate 18 11/29/2014 11:05 AM EDT Oxygen Saturation 100% 03/21/2015 9:22 AM EST Inhaled Oxygen Concentration - - Weight 53.5 kg (118 lb) 03/21/2015 9:22 AM EST Height 156.2 cm (5' 1.5) 03/21/2015 9:22 AM EST Body Mass Index 21.93 03/21/2015 9:22 AM EST Plan of Treatment Health Maintenance Due Date Last Done Comments HIV screen 2001 Hepatitis C Screening 2001 Lipid Screening 2001 Hepatitis B vaccine (0-59 yrs) (1) 2002 Tdap adult 2002 Tetanus vaccine 2002 HPV test 2013 PAP Smear 2013 Covid-19 Vaccine (2022-24 season) 2022 Breast Cancer Share Decision Needed 2023 Breast Cancer screening 2023 Influenza (Flu) vaccine (1 o f 1 - Influenza standard series) 12/07/2023 02/15/2009, 02/02/2009 Care Teams Multimedia Engineer Relationship Specialty Start Date End Date Bee Levine APRN PCP - General Family Medicine 04/24/15
--- OUTSIDE RECORDS SUMMARY | 2023-12-10 11:00 | XMS_ITS | Encounter Summary ---
[place] [address] Care Team Providers Care Soap Mixer Name Role Phone Brandy Gilman APRN Primary Care Provider [phone] Reason for Visit * Reason Onset Date Comments Medication Refill 10/06/2014 Encounter Details Date Type Department Care Team (Late st Contact Info) Description 10/06/2014 [place] [address] Agnes Wilder LPN Chronic pain in right shoulder Social History Tobacco Use Types Packs/Day Years Used Date Smoking Tobacco: Every Day Cigarettes 0.5 15 Smokeless Tobacco: Never Sex and Gender Information Value Date Recorded Sex Assigned at Not on file Gender Identity Not on file Sexual Orientation Not on file documented as of this encounter Miscellaneous Notes * Telephone Encounter - Agnes Wilder LPN - 10/06/2014 12:56 PM EDT Pt called to report her insurance would only fill a 14 day supply. Confirmed with Ezequiel Garcia @ [facility], only 28 tablets of Oxycodone were filled. Pt will need an additional Rx for remaining 28 tablets. Pt requests Rx be mailed to [facility] in [place], [place] documented in this encounter Plan of Treatment Not on file documented as of this encounter Visit Diagnoses Diagnosis Chronic pain in right shoulder Pain in joint, shoulder region documented in this encounter Care Teams Soap Mixer Relationship Specialty Start Date End Date Brandy Gilman APRN PCP - General 01/24/14 04/23/15 documented as of this encounter
--- OUTSIDE RECORDS SUMMARY | 2023-12-10 11:00 | XMS_ITS | Encounter Summary ---
Author Organization [facility] [place] [address] Care Team Providers Care Recreation Supervisor Name Role Phone Brandy Gilman APRN Primary Care Provider +1- [phone] Encounter Details Date Type Department Care Team (Late st Contact Info) Description 04/18/2014 Telephone [place] [address] Boston Henderson DO [facility] [place] [address] Social History Tobacco Use Types Packs/Day Years Used Date Smoking Tobacco: Every Day Cigarettes 0.5 15 Smokeless Tobacco: Never Sex and Gender Information Value Date Recorded Sex Assigned at Not on file Gender Identity Not on file Sexual Orientation Not on file documented as of this encounter Miscellaneous Notes * Telephone Encounter - Boston Henderson DO - 04/18/2014 9:05 AM EST Left voicemail for patient to return call. Regarding Parent Child Center/Temporary Medical Deferment paperwork submitted for completion and last appointment. In review, this paperwork is not appropriate for completion by the Pain Management Center providers. [facility] is not dictating her work restrictions surrounding the recent injury to the right shoulder. These restrictions and return to work determination are left to her treating pr oviders. We will continue to see her for medication management in concert with her treating orthopedic providers. BOSTON HENDERSON DO 04/18/2014 Fellow, Pain Management Center documented in this encounter Plan of Treatment Not on file documented as of this encounter Visit Diagnoses Not on filedocumented in this encounter Care Teams Recreation Supervisor Relationship Specialty Start Date End Date Brandy Gilman APRN PCP - General 01/24/14 04/23/15 documented as of this encounter
--- OUTSIDE RECORDS SUMMARY | 2023-12-10 11:00 | XMS_ITS | Encounter Summary ---
Author [place] [address] Care Team Providers Care Business Objects Report Developer Name Role Phone Brandy Gilman APRN Primary Care Provider +1- [phone] Encounter Details Date Type Department Care Team (Late st Contact Info) Description 01/05/2015 Telephone [place] [id number] Neva Harvey RN Social History Tobacco Use Types Packs/Day Years Used Date Smoking Tobacco: Every Day Cigarettes 0.5 15 Smokeless Tobacco: Never Sex and Gender Information Value Date Recorded Sex Assigned at Not on file Gender Identity Not on file Sexual Orientation Not on file documented as of this encounter Miscellaneous Notes * Telephone Encounter - Neva Harvey RN - 01/05/2015 8:48 AM EDT Pain Management Center Preauthorization Request Patient: Nasrin Haney [id number] Fax received from [facility] requesting we obtain prior authorization for Ketamine Baclofen, Diclofenac, Gabapentin Lidocaine cream prescribed by Michelle Posey APRN. RX [place] telephone: Patient Diagnosis: Chronic pain right shoulder, Pain management superintendent terminal use of medications Previous medications attempted: Ibuprofen, NSAIDS, Tramadol The following action was taken after discussion with the administrative services officer: _X_ sent to clinical review, patient informed Neva Harvey RN documented in this encounter Plan of Treatment Not on file documented as of this encounter Visit Diagnoses Not on filedocumented in this encounter Care Teams Business Objects Report Developer Relationship Specialty Start Date End Date Brandy Gilman APRN PCP - General 01/24/14 04/23/15 documented as of this encounter
--- OUTSIDE RECORDS SUMMARY | 2023-12-10 11:00 | XMS_ITS | Encounter Summary ---
Author Organization [facility] [place] [address] Care Team Providers Care Hoop Punch Operator Helper Name Role Phone Brandy Gilman APRN Primary Care Provider +1- [phone] Encounter Details Date Type Department Care Team (Late st Contact Info) Description 10/06/2014 Orders [place] [address] Monica Osorio APRN [facility] [place] [id number] Social History Tobacco Use Types Packs/Day Years Used Date Smoking Tobacco: Every Day Cigarettes 0.5 15 Smokeless Tobacco: Never Sex and Gender Information Value Date Recorded Sex Assigned at Not on file Gender Identity Not on file Sexual Orientation Not on file documented as of this encounter Progress Notes * Monica Osorio APRN - 10/06/2014 2:15 PM EDT She pain with tobin for the last script in September, this script was submitted to insurance, they pay for 14 days only for a new script. documented in this encounter Plan of Treatment Not on file documented as of this encounter Visit Diagnoses Not on filedocumented in this encounter Care Teams Hoop Punch Operator Helper Relationship Specialty Start Date End Date Brandy Gilman APRN PCP - General 01/24/14 04/23/15 documented as of this encounter
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
--- OUTSIDE RECORDS SUMMARY | 2023-12-10 11:00 | XMS_ITS | Encounter Summary ---
[place] [address] Care Team Providers Care Push Bench Operator Helper Name Role Phone Brandy Gilman APRN Primary Care Provider +1- [phone] Reason for Visit * Reason Onset Date Comments Medication Refill 12/09/2014 Encounter Details Date Type Department Care Team (Late st Contact Info) Description 12/09/2014 Refill [place] [address] Neva Harvey, RN Social History Tobacco Use Types Packs/Day [...] on filedocumented in this encounter Care Teams Push Bench Operator Helper Relationship Specialty Start Date End Date Brandy Gilman APRN PCP - General 01/24/14 04/23/15 documented as of this encounter
--- OUTSIDE RECORDS SUMMARY | 2023-12-10 11:00 | XMS_ITS | Encounter Summary ---
Author Organization [facility] [place] [address] Care Team Providers Care Glass Edger Name Role Phone Brandy Kwok WILMER Primary Care Provider +1- [phone] Reason for Visit * Reason Comments Pain Management Right Shoulder Pain Encounter Details Date Type Department Care Team (Late st Contact Info) Description 09/08/2014 7:45 AM EDT Follow-[place] [address] Monica Osorio PHARMACY PICKING TECH [facility] [place] [address] Chronic pain in right shoulder Discharge Disposition: Home Social History Tobacco Use Types Packs/Day Years Used Date Smoking Tobacco: Every Day Cigarettes 0.5 15 Smokeless Tobacco: Never Sex and Gender Information Value Date Recorded Sex Assigned at Not on file Gender Identity Not on file Sexual Orientation Not on file documented as of this encounter Last Filed Vital Signs Vital Sign Reading Time Taken Comments Blood Pressure 108/55 09/08/2014 8:11 AM EDT Pulse 60 09/08/2014 8:11 AM EDT Temperature - - Respiratory Rate - - Oxygen Saturation 100% 09/08/2014 8:11 AM EDT Inhaled Oxygen Concentration - - Weight 61.7 kg (136 lb) 09/08/2014 8:11 AM EDT Height - - Body Mass Index 24.87 08/19/2014 9:51 AM EDT documented in this encounter Progress Notes * Monica Osorio APRN - 09/08/2014 8:26 AM EDT PAIN CLINIC FOLLOW-UP Nasrin Haney [id number] Reason for follow-up: Medical managment Chief Complaint: Right shoulder pain Identification: Ms. Haney is a 29 y.o.-year-old female, who has a history of right shoulder pain after a fall 5 years ago, s/p surgery for biceps repair 2012. Another shoulder surgery June 08, 2014 for full tendon repair. History of Present Illness/Interval History Pain Location: right shoulder, trapezius, scapula Pain Quality is described as an ache and burning, but an be sharp at times Pain Exacerbating/relieving activities: worse with picking things up and pulling, better with ice, heat, and TENS Rated as 4/10 Depression: none this past month Anxiety: yes Sleep: can be variable Smokin/2 ppd Alcohol: no Functional Status: lives with state assist, able to care for self and home Recent treatments: PT The [place] Prescription Monitoring Program was checked and no issues were found. Chronic Opioid Therapy Pain Management Plan signed on 01/21/14 UDT: done on 05/11/14 Finding reflect medications we are prescribing. Review of Systems Constitutional Denies weight loss or gain, fevers, chills, nightsweats Cardiovascular Denies chest pain, palpitations. Respiratory Denies cough, SOB, CASE. GI/ Denies constipation, diarrhea, nausea, vomiting, GERD, incontinence Musculoskeletal Has weakness in the right shoulder, no falling Neurologic Denies fainting spells, seizures, memory loss. Physical Exam Blood pressure 108/55, pulse 60, weight 61.689 kg (136 lb), SpO2 100 %. Constitutional Nasrin Haney is seen today alone. Dressed appropriately for the weather with good hygiene. No pain behaviors. No Lety signs. Psychiatric He has good eye contact and a full range of affect. Musculoskeletal Moves easily in the exam room with a non antalgic gait. No ambulatory aids used. Assessment Chronic shoulder pain Recommendations/Plan Nasrin Haney and I reviewed her symptoms and care to date. She has been working with PT and Ms Posey increased her pain meds for several days. Is back for a refill. Will put her back to two tabs a day. To be seen back next week for trigger point injections. To start strengthening at PT now. Goal: Decreased pain Increased function No change in Mood Orders Placed This Encounter Medications ??? Capsaicin-Menthol (SALONPAS) 0.025-1.25 % Adhesive Patch, Medicated Sig: Apply topically as needed. ??? oxyCODONE 10 mg Tablet Si tablet every 6 hours, not to exceed 2 tablets per day. Do not drive after taking this medicine. Dispense: 56 tablet Refill: 0 F/U one month Monica Osorio APRN cc: BRANDY KWOK APRN NONE documented in this encounter Plan of Treatment Not on file documented as of this encounter Visit Diagnoses Diagnosis Chronic pain in right shoulder Pain in joint, shoulder region documented in this encounter Care Teams Glass Edger Relationship Specialty Start Date End Date Brandy Kwok APRN PCP - General 01/24/14 04/23/15 documented as of this encounter
--- OUTSIDE RECORDS SUMMARY | 2023-12-10 11:00 | XMS_ITS | Encounter Summary ---
Author Organization [facility] [place] [address] Care Team Providers Care Set Up Technician Name Role Phone Brandy Gilman APRN Primary Care Provider +1- [phone] Encounter Details Date Type Department Care Team (Late st Contact Info) Description 04/18/2014 Notes [place] [address] Boston Henderson DO [facility] [place] [id number] Social History Tobacco Use Types Packs/Day Years Used Date Smoking Tobacco: Every Day Cigarettes 0.5 15 Smokeless Tobacco: Never Sex and Gender Information Value Date Recorded Sex Assigned at Not on file Gender Identity Not on file Sexual Orientation Not on file documented as of this encounter Progress Notes * Boston Henderson DO - 04/18/2014 8:46 AM EST Urine Drug Testing result reviewed from 04/12/2014 . Results of testing are CONSISTENT with patients prescribed medications and reported exposures. BOSTON HENDERSON DO Pain Management Fellow 04/18/2014 documented in this encounter Plan of Treatment Not on file documented as of this encounter Visit Diagnoses Not on filedocumented in this encounter Care Teams Set Up Technician Relationship Specialty Start Date End Date Brandy Gilman APRN PCP - General 01/24/14 04/23/15 documented as of this encounter
--- OUTSIDE RECORDS SUMMARY | 2023-12-10 11:00 | XMS_ITS | Encounter Summary ---
Author Organization [facility] [place] [address] Care Team Providers Care Power Plant Inspector Name Role Phone Brandy Kwok Mony GUILLEN Primary Care Provider [phone]- [phone] Reason for Visit * Reason Comments Shoulder Pain Right Encounter Details Date Type Department Care Team (Late st Contact Info) Description 11/29/2014 10:45 AM EDT Follow-Up [place] [address] Monica Osorio ABORIGINAL LIAISON OFFICER [facility] [place] [address] Chronic pain in right shoulder Discharge Disposition: [...] Sign Reading Time Taken Comments Blood Pressure 92/58 11/29/2014 11:05 AM EDT Pulse 59 11/29/2014 11:05 AM EDT Temperature 36.6 ??C (97.9 ??F) 11/29/2014 11:05 AM E DT Respiratory Rate 18 11/29/2014 11:05 AM EDT Oxygen Saturation 100% 11/29/2014 11:05 AM EDT Inhaled Oxygen Concentration - - Weight 57.6 kg (127 lb) 11/29/2014 11:05 AM EDT Height 156.2 cm (5' 1.5) 11/29/2014 11:05 AM ED T Body Mass Index 23.61 11/29/2014 11:05 AM EDT documented in this encounter Progress Notes * Monica Osorio APRN - 11/29/2014 11:10 AM EDT PAIN CLINIC FOLLOW-UP Nasrin Haney [id number] Reason for follow-up: Medical managment Chief Complaint: Right shoulder pain Identification: Ms. Haney is a 29 y.o.-year-old female, who has a history of right shoulder pain after a fall 5 years ago, s/p surgery for biceps repair 2012. Another shoulder surgery June 08, 2014 for full tendon repair. Reinjury 09/30/14. History of Present Illness/Interval History Pain Location: right shoulder, trapezius, scapula, right bicepts Pain Quality is described as an ache and burning, but an be sharp at times Pain Exacerbating/relieving activities: worse with movement, better with ice, heat, and relaxing Rated as 3.5/10 Depression: none Anxiety: present Sleep: is better, sleeping on the couch Smokin/2 ppd Alcohol: no Functional Status: lives with state assist, able to care for self, needs help with daughter and caring for her home (essentially has one arm) Recent treatments: discharged from Dr Cassidy but case left open The [place] Prescription Monitoring Program was checked and no issues were found. Chronic Opioid Therapy Pain Management Plan signed on 02/18/14 UDT: done on 11/01/14 Finding reflect medications we are prescribing and THC. Review of Systems Constitutional Denies weight loss or gain, fevers, chills, nightsweats Cardiovascular Denies chest pain, palpitations. Respiratory Denies cough, SOB, CASE. GI/ Denies constipation, diarrhea, nausea, vomiting, GERD, incontinence Musculoskeletal Has weakness in the right shoulder, no falling Neurologic Denies fainting spells, seizures, memory loss. Physical Exam Blood pressure 92/58, pulse 59, temperature 36.6 ??C (97.9 ??F), temperature source Oral, resp. rate 18, height 156.2 cm (5' 1.5), weight 57.607 kg (127 lb), last menstrual period 11/15/2014, SpO2 100 %. Constitutional Nasrin Haney is seen today alone. Dressed appropriately for the weather with good hygiene. No pain behaviors. No Lety signs. Psychiatric He has good eye contact and a full range of affect. Cardiac HRR Pulmonary CTA Musculoskeletal Moves easily in the exam room with a non antalgic gait. No ambulatory aids used. Assessment Chronic shoulder pain Recommendations/Plan Nasrin Haney and I reviewed her symptoms and care to date. Has been doing better of late. Will start to wean her down. Today to 5mg tabs, next month will prescribe 30 tabs then off. Goal: Decreased pain Increased function No change in Mood Orders Placed This Encounter Medications ??? oxyCODONE (ROXICODONE) 5 mg Tablet Sig: Take 1 tablet by mouth 2 times daily as needed for Pain. Dispense: 60 tablet Refill: 0 F/U 28 MONICA OSORIO APRN cc: BRANDY KWOK APRN (General) None (Regular Care Provider) documented in this encounter Plan of Treatment Not on file documented as of this encounter Visit Diagnoses Diagnosis Chronic pain in right shoulder Pain in joint, shoulder region documented in this encounter Care Teams Power Plant Inspector Relationship Specialty Start Date End Date Brandy Kwok APRN PCP - General 01/24/14 04/23/15 documented as of this encounter
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
--- OUTSIDE RECORDS SUMMARY | 2023-12-10 11:00 | XMS_ITS | Encounter Summary ---
Author Organization [facility] [place] [address] Care Team Providers Care It Desktop Support Technician Name Role Phone Gilman, Brandycam Sykes APRN Primary Care Provider +1- [phone] Encounter Details Date Type Department Care Team (Late st Contact Info) Description 08/23/2014 Telephone [place] [id number] Cinda Kitchen LPN Social History Tobacco Use Types Packs/Day Years Used Date Smoking Tobacco: Every Day Cigarettes 0.5 15 Smokeless Tobacco: Never Sex and Gender Information Value Date Recorded Sex Assigned at Not on file Gender Identity Not on file Sexual Orientation Not on file documented as of this encounter Miscellaneous Notes * Telephone Encounter - Cinda Hill LPN - 08/23/2014 4:48 PM EDT Patient voiced she was having Right arm pain, redness, edema and inflamed. She saw Aline at the [facility] in [place]. Return visit scheduled for September 06. Currently taking Oxycodone 10 mg two tablets daily. New prescription from clinic as follows: Flexeril 10 mg prn, salonpas patch OTC. Betedsonwill call Monica/Michelle to update status. Patient would like to increase her Oxycodone 10 mg to one tablet three times daily. Note sent to Michelle Posey APRN * Telephone Encounter - Cinda Hill LPN - 08/23/2014 4:42 PM EDT Following message left on nurse triage line: I ended up going to see a surgeon on an emergency visit today. Michelle said if I needed meds cause I offered to cut back I could call her. So I would like to speak to somebody about that. Someone please call that would be great. [phone]. documented in this encounter Plan of Treatment Not on file documented as of this encounter Visit Diagnoses Not on filedocumented in this encounter Care Teams It Desktop Support Technician Relationship Specialty Start Date End Date Brandy Gilman APRN PCP - General 01/24/14 04/23/15 documented as of this encounter
--- OUTSIDE RECORDS SUMMARY | 2023-12-10 11:00 | XMS_ITS | Encounter Summary ---
Author Organization [facility] [place] [address] Care Team Providers Care Health Science Instructor Name Role Phone Brandy Gilman WILMER Primary Care Provider +1- [phone] Encounter Details Date Type Department Care Team (Late st Contact Info) Description 08/24/2014 Telephone [place] [address] Michelle Posey RADIOLOGICAL ENGINEER [facility] [place] [address] Social History Tobacco Use Types Packs/Day Years Used Date Smoking Tobacco: Every Day Cigarettes 0.5 15 Smokeless Tobacco: Never Sex and Gender Information Value Date Recorded Sex Assigned at Not on file Gender Identity Not on file Sexual Orientation Not on file documented as of this encounter Miscellaneous Notes * Telephone Encounter - Michelle Posey APRN - 08/24/2014 1:17 PM EDT TC to patient after speaking with Anuja nurse for SHERIDAN Monge. Anuja verified that patient was seen for increased arm pain and swelling this week. She did not have her note in front of her, but was able to tell me that Aline told Nasrin any discussion re: increasing pain medications would have be done with [facility] pain clinic. Nasrin then called our office and those notes are in the record. Aline recommended flexeril and salonpas for the inflammation which in our phone call Nasrin tells me shefelt was due to use and PT. Nasrin is having some increased pain and feels reluctant to move it due to the pain, but also does not want to have a frozen shoulder. She was at PT during this TC. I advised her I spoke with Monica Osorio APRN and Anuja and I would like her to take 3 tabs for the next5 days, and then decrease back to 2 tabs per day. With this increase in her dosing she will now be due for refill on 09/12/14. She will call after her PT appointment to schedule an earlier appointment. documented in this encounter Plan of Treatment Not on file documented as of this encounter Visit Diagnoses Not on filedocumented in this encounter Care Teams Health Science Instructor Relationship Specialty Start Date End Date Brandy Gilman APRN PCP - General 01/24/14 04/23/15 documented as of this encounter
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
--- OUTSIDE RECORDS SUMMARY | 2023-12-10 11:00 | XMS_ITS | Encounter Summary ---
Author Organization [facility] [place] [address] Care Team Providers Care Cooler Servicer Name Role Phone Brandy Gilman WILMER Primary Care Provider +1- [phone] Encounter Details Date Type Department Care Team (Late st Contact Info) Description 05/20/2014 Telephone [place] [address] Monica Osorio APRN [facility] [address] Social History Tobacco Use Types Packs/Day Years Used Date Smoking Tobacco: Every Day Cigarettes 0.5 15 Smokeless Tobacco: Never Sex and Gender Information Value Date Recorded Sex Assigned at Not on file Gender Identity Not on file Sexual Orientation Not on file documented as of this encounter Miscellaneous Notes * Telephone Encounter - Neva Harvey RN - 05/26/2014 12:40 PM EST Patient notified that Dr. Cassidy will cover immediate post op pain medications. Pain Clinic will resume coverage after that. * Telephone Encounter - Monica Osorio APRN - 05/20/2014 8:46 AM EST Received a call from Dr Hearn office in [place]. Speaking with their PA, it seem they have offered Ms Lyndon surgery and we have decided that Dr Cassidy will cover her pain medications in the immediatepost op period and we will resume coverage if needed. documented in this encounter Plan of Treatment Not on file documented as of this encounter Visit Diagnoses Not on filedocumented in this encounter Care Teams Cooler Servicer Relationship Specialty Start Date End Date Brandy Gilman APRN PCP - General 01/24/14 04/23/15 documented as of this encounter
--- OUTSIDE RECORDS SUMMARY | 2023-12-10 11:00 | XMS_ITS | Encounter Summary ---
Author Organization [facility] [place] [address] Care Team Providers Care Sales And Business Development Manager Name Role Phone Brandy Gilman APRN Primary Care Provider +1- [phone] Reason for Visit * Reason Comments Right Shoulder Pain Encounter Details Date Type Department Care Team (Latest Contact Info) Description 03/22/2014 12:15 PM EST Procedure visit [place] [address] Ruddy Mcpherson [facility] [place] [id number] Muscle pain Discharge Disposition: Home Social History Tobacco Use Types Packs/Day Years Used Date Smoking Tobacco: Every Day Cigarettes 0.5 15 Smokeless Tobacco: Never Sex and Gender Information Value Date Recorded Sex Assigned at Not on file Gender Identity Not on file Sexual Orientation Not on file documented as of this encounter Last Filed Vital Signs Vital Sign Reading Time Taken Comments Blood Pressure 115/69 03/22/2014 12:31 PM EST Pulse 74 03/22/2014 12:31 PM EST Temperature - - Respiratory Rate 16 03/22/2014 12:31 PM EST Oxygen Saturation 98% 03/22/2014 12:31 PM EST Inhaled Oxygen Concentration - - Weight 70.3 kg (155 lb) 03/22/2014 12:31 PM EST Height 157.5 cm (5' 2) 03/22/2014 12:31 PM EST Body Mass Index 28.35 03/22/2014 12:31 PM EST documented in this encounter Procedure Notes * Ruddy Mcpherson DO - 03/22/2014 1:24 PM ESTAssociated Order(s): TRIGGER POINT INJECTION - 3 OR 4 MUSCLES Procedure(s): TRIGGER POINT INJECTION - 3 OR 4 MUSCLES Pre-Procedure Diagnose(s): Muscle pain TRIGGER POINT INJECTION PROCEDURE NOTE The patient complains of right trapezius, right cervical Paraspinous, right supraspinatus, right infraspinatus, and right rhomboid muscle pain. Dx: Muscle Pain (729.1) Ms. Haney was greeted by the nurse who verified patients name and . Ms. Haney was interviewed and the medical record reviewed. There were no medical, pharmacologic, radiographic, or other structural contraindications to attempting trigger point injections to the right trapezius, right cervical Paraspinous, right supraspinatus, right infraspinatus, and right rhomboid. Risks and potential side effects were discussed. The potential benefits of the procedure were reviewed with Ms. Haney and her voiced concerns were addressed. After obtaining informed consent, the patient consent form was signed. Standard time-out procedure was performed. Ms. Haney was placed in the prone position on the examination table. The skin entry point for entering/approaching the ght trapezius, right cervical Paraspinous, right supraspinatus, right infraspinatus, and right rhomboid muscles was marked. The skin was thoroughly prepared with chlorhexadine prepa ration. Next, I entered the skin using a medial to lateral approach with a 3.5 25G spinal needle. Aspiration revealed no blood or other fluid. Next, point anesthesia was obtained by injecting 1% Lidocaine. Multiple passes through the muscles were completed which resulted in muscle twitching. Follow up plans and appointments were discussed with Ms. Haney. Post procedure instruction was given. Having met discharge criteria he was discharged from the [facility] Management Center. I personally performed this entire procedure. Ruddy Mcpherson DO, MPH [facility]-subspecialty board certification in Pain Medicine Attending Physician - Pain Management CC: Shayna Trammell, WILMER [address] [place] [address] documented in this encounter Plan of Treatment Not on file documented as of this encounter Procedures Procedure Name Priority Date/Time Associated Diagnosis Comments TRIGGER POINT INJECTION - 3 OR 4 MUSCLES Routine 03/22/2014 1:26 PM EST Muscle pain documented in this encounter Results * TRIGGER POINT INJECTION - 3 OR 4 MUSCLES (03/22/2014 1:26 PM EST) Narrative Ruddy Mcpherson DO - 03/22/2014 1:26 PM EST Ruddy Mcpherson DO ? 03/22/2014 ??1:26 PM TRIGGER POINT INJECTION PROCEDURE NOTE The patient complains of right trapezius, right cervical Paraspinous, right supraspinatus, right infraspinatus, and right rhomboid muscle pain. Dx: Muscle Pain (729.1) Ms. Haney was greeted by the nurse who verified patients name and . ?? Ms. Haney was interviewed and the medical record reviewed. ??There were no medical, pharmacologic, radiographic, or other structural contraindications to attempting trigger point injections to the right trapezius, right cervical Paraspinous, right supraspinatus, right infraspinatus, and right rhomboid. Risks and potential side effects were discussed. ??The potential benefits of the procedure were reviewed with Ms. Haney and her voiced concerns were addressed. ??After obtaining informed consent, the patient consent form was signed. ??Standard time-out procedure was performed. Ms. Haney was placed in the prone position on the examination table. ??The skin entry point for entering/approaching the ght trapezius, right cervical Paraspinous, right supraspinatus, right infraspinatus, and right rhomboid muscles was marked. ??The skin was thoroughly prepared with chlorhexadine preparation. ??Next, I entered the skin using a medial to lateral approach with a 3.5 25G spinal needle. ??Aspiration revealed no blood or other fluid. ?? Next, point anesthesia was obtained by injecting 1% Lidocaine. ?? Multiple passes through the muscles were completed which resulted in muscle twitching. ?? Follow up plans and appointments were discussed with Ms. Haney. ?? Post procedure instruction was given. ??Having met discharge criteria he was discharged from the Pain Management Center. I personally performed this entire procedure. Ruddy Mcpherson DO, MPH [facility]-subspecialty board certification in Pain Medicine Attending Physician - Pain Management CC: Shayna Trammell, [employer] [address] [place] [address] Ruddy Melendez DO NEUROLOGY ORDERABLES documented in this encounter Visit Diagnoses Diagnosis Muscle pain Mylagia and myositis, unspecified documented in this encounter Administered Medications Inactive Administered Medications - up to 3 most recent administrations Medication Order MAR Action Action Date Dose Rate Site lidocaine (PF) (XYLOCAINE) 10 mg/mL (1 %) injection 50 mg 50 mg, Subcutaneous, ONCE, 1 dose, On Fri03/22/14 at 1345, Routine Given 03/22/2014 1:24 PM EST 50 mg documented in this encounter Care Teams Sales And Business Development Manager Relationship Specialty Start Date End Date Brandy Gilman APRN PCP - General 01/24/14 04/23/15 documented as of this encounter
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
--- OUTSIDE RECORDS SUMMARY | 2023-12-10 11:00 | XMS_ITS | Encounter Summary ---
Author Organization [facility] [place] [address] Care Team Providers Care Manager Discovery Name Role Phone Bee Levine APRN Primary Care Provider [phone] [phone] Encounter Details Date Type Department Care Team (Late st Contact Info) Description 09/23/2006 Orders Only [place] [address] El Flores MD [facility] [place] [address] Social History Tobacco Use Types Packs/Day Years Used Date Smoking Tobacco: Never Assessed Sex and Gender Information Value Date Recorded Sex Assigned at Not on file Gender Identity Not on file Sexual Orientation Not on file documented as of this encounter Plan of Treatment Not on file documented as of this encounter Procedures Procedure Name Priority Date/Time Associated Diagnosis Comments SURGICAL PATHOLOGY REPORT Routine 09/23/2006 4:05 PM EDT documented in this encounter Results * Surgical Pathology Report (09/23/2006 4:05 PM EDT) Surgical Pathology Report [id number] ? Location: The signing pathologist has (i) examined the relevant preparation(s) for the specimen(s) and (ii) rendered or confirmed the diagnosis(es). . ?Pathology Surgical Pathology Final Report Clinical Information Specimen Submitted: A - Biopsies: Random colon Clinical History: Chronic diarrhea, question microscopic colitis Clinical Diagnosis: ? IBD/ rule out celiac disease/? PUD Gross Description Labeled/Fixativ e: ? Biopsies, random colon; formalin. Qty/Size/Weight : ?Five, averaging 0.2 x 0.2 x 0.1 cm. Tissue Description: ?? Soft, devine tissues. Sections/Proces sing: ??(T2) ??aje/CSS Microscopic Description Slides reviewed, microscopic description not recorded. Diagnosis Colon, random endoscopic biopsies: ?? Colonic mucosa ??within normal limits. CR-0 09/24/06 NASRA 09/24/06 Verified by: ? Kayla Sutton MD ?Pathologist ?(Electronic Signature) The attending pathologist whose signature appears on this report has reviewed all diagnostic slides and has edited the gross and/or microscopic portion of the report in rendering the final pathologic diagnosis. [facility] 09/23/2006 4:05 PM EDT El Flores MD PATHOLOGY/CYTOLOGY O [facility] documented in this encounter Visit Diagnoses Not on filedocumented in this encounter Care Teams Manager Discovery Relationship Specialty Start Date End Date Bee Levine, SOLE DYER PCP - General Family Medicine 04/24/15 documented as of this encounter
--- OUTSIDE RECORDS SUMMARY | 2023-12-10 11:00 | XMS_ITS | Encounter Summary ---
Author Organization [facility] [place] [address] Care Team Providers Care Sap [place]rib[place] Consultant Name Role Phone Brandy Kwok WILMER Primary Care Provider +1- [phone] Reason for Visit * Reason Comments Pain Management Right Shoulder Pain Encounter Details Date Type Department Care Team (Late st Contact Info) Description 03/18/2014 2:30 PM EST [place] [address] Monica Osorio TOLL TEST DESK WORKER [facility] [place] [address] Chronic pain in right shoulder Discharge Disposition: [...] Sign Reading Time Taken Comments Blood Pressure 113/66 03/18/2014 2:39 PM EST Pulse 66 03/18/2014 2:39 PM EST Temperature - - Respiratory Rate - - Oxygen Saturation 100% 03/18/2014 2:39 PM EST Inhaled Oxygen Concentration - - Weight 68.9 kg (152 lb) 03/18/2014 2:39 PM EST Height - - Body Mass Index 27.8 02/18/2014 2:10 PM EST documented in this encounter Progress Notes * Monica Osorio, WILMER - 03/18/2014 2:48 PM EST PAIN CLINIC FOLLOW-UP Nasrin Haney [id number] Reason for follow-up: Medical managment Chief Complaint: Right shoulder pain Identification: Ms. Haney is a 28 y.o.-year-old female, who has a history of right shoulder pain after a fall 5 years ago, s/p surgery for biceps repair 2012.. 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 Chronic Opioid Therapy Pain Management Plan signed on 01/21/14 UDT: done on 01/21/14 Finding reflect medications we are prescribing. Review of Systems Constitutional Denies weight loss or gain, fevers, chills, nightsweats Cardiovascular Denies chest pain, palpitations. Respiratory Denies cough, SOB, CASE. GI/ Denies constipation, diarrhea, nausea, vomiting, GERD, incontinence Musculoskeletal No weakness, falling Neurologic Denies fainting spells, seizures, memory loss. Has numbness and Paresthesia as noted. Physical Exam Blood pressure 113/66, pulse 66, weight 68.947 kg (152 lb), SpO2 100 %. Constitutional Nasrin Haney is seen today alone. Dressed appropriately for the weather with good hygiene. No pain behaviors. No Lety signs. Psychiatric He has good eye contact and a full range of affect. Lungs Clear to auscultation Cardiac Reg RR Musculoskeletal Moves easily in the exam room with a non antalgic gait. No ambulatory aids used. Assessment Chronic shoulder pain Recommendations/Plan Nasrin Haney and I reviewed her symptoms and care to date. Has been working with PT and feels thatshe is stronger and no change in pain. The could weather has increased her pain somewhat, but I wonder if the increased activity has also caused an increase. To have TPI in a few days that had to be cancelled in the past when she was on ABX, now has completed the course. Goal: Decreased pain Increased function No change in mood Orders Placed This Encounter Medications ??? oxyCODONE 10 mg Tablet Sig: Take 1 tablet by mouth 3 times daily. Dispense: 90 tablet Refill: 0 F/U one month MONICA OSORIO APRN cc: BRANDY KWOK APRN None documented in this encounter Plan of Treatment Not on file documented as of this encounter Visit Diagnoses Diagnosis Chronic pain in right shoulder Pain in joint, shoulder region documented in this encounter Care Teams [place] [place] Consultant Relationship Specialty Start Date End Date Brandy Kwok APRN PCP - General 01/24/14 04/23/15 documented as of this encounter
--- OUTSIDE RECORDS SUMMARY | 2023-12-10 11:00 | XMS_ITS | Encounter Summary ---
Author [facility] [place] [address] Care Team Providers Care Station Supervisor Name Role Phone Brandy Gilman APRN Primary Care Provider +1- [phone] Encounter Details Date Type Department Care Team (Late st Contact Info) Description 09/08/2014 Telephone [place] [id number] Neva Harvey, RN Social History Tobacco Use Types Packs/Day Years Used Date Smoking Tobacco: Every Day Cigarettes 0.5 15 Smokeless Tobacco: Never Sex and Gender Information Value Date Recorded Sex Assigned at Not on file Gender Identity Not on file Sexual Orientation Not on file documented as of this encounter Miscellaneous Notes * Telephone Encounter - Neva Harvey RN - 09/08/2014 12:01 PM EDT Incoming call from patient she states I was in this am and saw Monica Osorio I went to drop my prescription off at the pharmacy [facility] in [place] and the pharmacist said I need to have Michelle posey or Monica Osorio call to verify that I was authorized to take extra of my pain medication last month so I can pick pulling machine tender my prescription on Friday Nurse advises she will forward thi message to Michelle Posey for review. Patient verbalizes understanding and agrees with the plan Patient states The Pharmacy is [facility] [phone]. documented in this encounter Plan of Treatment Not on file documented as of this encounter Visit Diagnoses Not on filedocumented in this encounter Care Teams Station Supervisor Relationship Specialty Start Date End Date Brandy Gilman APRN PCP - General 01/24/14 04/23/15 documented as of this encounter
--- OUTSIDE RECORDS SUMMARY | 2023-12-10 11:00 | XMS_ITS | Encounter Summary ---
Author Organization [facility] [place] [address] Care Team Providers Care Nuclear Physics Professor Name Role Phone Mukul Brandy Sykes APRN Primary Care Provider +1- [phone] Encounter Details Date Type Department Care Team (Late st Contact Info) Description 09/08/2014 Notes [place] [address] Michelle Posey APRN [facility] [place] [address] Social History Tobacco Use Types Packs/Day Years Used Date Smoking Tobacco: Every Day Cigarettes 0.5 15 Smokeless Tobacco: Never Sex and Gender Information Value Date Recorded Sex Assigned at Not on file Gender Identity Not on file Sexual Orientation Not on file documented as of this encounter Progress Notes * Michelle Posey APRN - 09/08/2014 12:18 PM EDT Call to [facility] to advise that patient had been authorized last week that she could take additional medications and refill would therefore be due earlier. Spoke with pharmacist who documented this. documented in this encounter Plan of Treatment Not on file documented as of this encounter Visit Diagnoses Not on filedocumented in this encounter Care Teams Nuclear Physics Professor Relationship Specialty Start Date End Date Brandy Gilman APRN PCP - General 01/24/14 04/23/15 documented as of this encounter
--- OUTSIDE RECORDS SUMMARY | 2023-12-10 11:00 | XMS_ITS | Encounter Summary ---
Author Organization [facility] [place] [address] Care Team Providers Care Coding Educator Name Role Phone Brandy Gilman APRN Primary Care Provider +1- [phone] Encounter Details Date Type Department Care Team (Late st Contact Info) Description 02/14/2014 Telephone [place] [phone] Cinda Kitchen LPN Social History Tobacco Use Types Packs/Day Years Used Date Smoking Tobacco: Every Day Cigarettes 0.5 15 Sex and Gender Information Value Date Recorded Sex Assigned at Not on file Gender Identity Not on file Sexual Orientation Not on file documented as of this encounter Miscellaneous Notes * Telephone Encounter - Cinda Hill LPN - 02/14/2014 4:46 PM EST Patient scheduled for TPI with Dr. Mcpherson on 02/16/14. She has a fever, running nose, and cough. Reviewed with Dr. Dowell in the absence of Dr. Mcpherson whether to postpone procedure. (Cancel TPI, reschedule.) Reviewed with patient. Patient voiced approval to plan of care. Patient transferred to door core assembler. documented in this encounter Plan of Treatment Not on file documented as of this encounter Visit Diagnoses Not on filedocumented in this encounter Care Teams Coding Educator Relationship Specialty Start Date End Date Brandy Gilman APRN PCP - General 01/24/14 04/23/15 documented as of this encounter
--- OUTSIDE RECORDS SUMMARY | 2023-12-10 11:00 | XMS_ITS | Encounter Summary ---
Author Organization [facility] [place] [address] Care Team Providers Care Utilization Management Um Nurse Name Role Phone Brandy Gilman WILMER Primary Care Provider +1- [phone] Reason for Visit * Reason Comments Right Shoulder Pain Encounter Details Date Type Department Care Team (Late st Contact Info) Description 12/27/2014 9:15 AM EDT [place] [address] Michelle Posey ROTARY RIG ENGINE OPERATOR [facility] [place] [address] Chronic pain in right shoulder; Pain management; [...] Sign Reading Time Taken Comments Blood Pressure 89/49 12/27/2014 9:23 AM EDT Pulse 64 12/27/2014 9:23 AM EDT Temperature - - Respiratory Rate - - Oxygen Saturation 99% 12/27/2014 9:23 AM EDT Inhaled Oxygen Concentration - - Weight 55.8 kg (123 lb) 12/27/2014 9:23 AM EDT Height 156.2 cm (5' 1.5) 12/27/2014 9:23 AM EDT Body Mass Index 22.86 12/27/2014 9:23 AM EDT documented in this encounter Progress Notes * Michelle Posey APRN - 12/27/2014 9:23 AM EDT PAIN CLINIC FOLLOW-UP Reason for [...] March and under the care of from [place] had full tendon repair in June 2014. She then re-injured her shoulder on 09/30/14. She has previously been cared for the in [facility], last seen by Monica Osorio APRN on 11/29/14, and she was prescribed oxycodone 5 mg tablet, 1 tablet twice daily as needed for pain #60 The plan at that last visit was to taper down to 1 tab per day, and then off of her medications. She reports today that this month has been horrible. She is going to be transferring her care up [facility], so that she does not need to drive down here in the winter. She is going to be signing records release here with us today, and when they have her records will have an appointment scheduled there. 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 She has missed work the past month, themother she watches for has needed to get another child support officer provider as Nasrin has been unable to work. She continues to go to PT, is doing a HEP and sees them once a month to check in with them on her exercises and have an updated program if needed. She also describes a lump on the top of her shoulder which feels as though something is different and has been new the last couple of weeks, and is going to follow up with Dr. Cassidy on . Pain Location: Pain in the R shoulder, trapezius, scapula, R biceps Pain Quality: Described as aching, and burning. Can be sharp. Feels a lot of pressure, 'when he shoulder is trying to push out'. Pain Exacerbating/relieving activities: Worse with lifting, better with ice, heat, and medication VAS: Today- 5.5/10 Average of last week- 2/10. This is prior to a new lump on her shoulder Best of last week- 4/10 Worst of last week- 12/15 Mood (Anxiety, Depression): States her mood has been great. Sleep: States her pain has kept her up 2 nights in a row. In general the past month sleep has been very difficult. She has been sleeping in a recliner chair since June. Function: Living with state assist, able to care for herself, needs help with her daughter and caring for her home Alcohol: Denies Tobacco: Smoking cigarettes about 1/2 PPD. The [facility] Prescription Monitoring Program was checked and [...] non antalgic gait. No ambulatory aids used. Allodynia over the AC joint and the scapular border. Discussion: Ms. Haney and I reviewed her care to date. She has been seen by Monica Osorio APRN in the past and the plan today is to wean her to 1 5 mg oxycodone tablet per day this month, and then she will be offthe oxycodone. She reports that this month has been very difficult, she has missed work as a resultof her pain. She is describing some new abnormalities with the shoulder and is following up with Dr. Cassidy. She does have allodynia over the AC joint and scapular border. She has not been tried on a compounded ointment and I am going to write her for this today. I am going to write her for the oxycodone 5 mg tablets, BID. We again discussed the benefits of weaning off of the medication, and I would decrease her to 5 mg oxycodone 1 tablet per day next month, and then off. She denies SE of the oxycodone, and denies misuse or abuse. Previous UDS have been consistent. She continues to wish to weanoff of the oxycodone. We will try to use the compounded ointment and she will follow up with Dr. Cassidy. She is going to try to schedule an appointment with Dr. Goss in [facility] for her ongoing pain management as travel here, particularly during the winter months, is difficult for her. Assessment 1. Chronic pain in right shoulder 2. Pain management 3. Encounter for long-term (current) use of other medications Recommendations/Plan 1. Nonpharmalogical: Continue with HEP 2. Pharmacogical: Will continue with oxycodone 5mg BID for one more month. Patient has had some changes in her pain and is following up with Dr. Cassidy. I have also written for a compounded ointment for her to use on the areas where she has increased sensitivity and allodynia Ketamine 10%/Baclofen 2%/Diclofenac 3%/Gabapentin6%/Lidocaine 5% cream Orders Placed This Encounter Medications ??? oxyCODONE (ROXICODONE) 5 mg Tablet Sig: Take 1 tablet by mouth 2 times daily as needed for Pain. Dispense: 56 tablet Refill: [address] Cassidy Will order compounded ointment for her to use for her pain. She does have a significant neuropathiccomponent with allodynia on exam today and I believe this could be quite helpful for her. F/U 4 weeks for med fill Michelle Posey MS, ROTARY RIG ENGINE OPERATOR Pain Management Clinic [facility] [phone] documented in this encounter Plan of Treatment Not on file documented as of this encounter Visit Diagnoses Diagnosis Chronic pain in right shoulder Pain in joint, shoulder region Pain management Other specified rehabilitation procedure Encounter for long-term (current) use of other medications documented in this encounter Care Teams Utilization Management Um Nurse Relationship Specialty Start Date End Date Brandy Gilman APRN PCP - General 01/24/14 04/23/15 documented as of this encounter
--- OUTSIDE RECORDS SUMMARY | 2023-12-10 11:00 | XMS_ITS | Encounter Summary ---
[place] [address] Care Team Providers Care Gallery Intern Name Role Phone Brandy Gilman APRN Primary Care Provider +1- [phone] Encounter Details Date Type Department Care Team (Late st Contact Info) Description 03/23/2014 Telephone [place] [id number] Cinda Kitchen LPN Social History Tobacco Use Types Packs/Day Years Used Date Smoking Tobacco: Every Day Cigarettes 0.5 15 Smokeless Tobacco: Never Sex and Gender Information Value Date Recorded Sex Assigned at Not on file Gender Identity Not on file Sexual Orientation Not on file documented as of this encounter Miscellaneous Notes * Telephone Encounter - Cinda Hill LPN - 03/23/2014 11:10 AM EST Patient calling for clarification on restrictions after her TPI. Are there any restrictions after having a TPI? My PT therapist would not do therapy after her TPI yesterday. Advised patient pain clinic recommends she keeps the injection site dry. No restriction for returning to work. Reassured she was able to do PT and return to work. documented in this encounter Plan of Treatment Not on file documented as of this encounter Visit Diagnoses Not on filedocumented in this encounter Care Teams Gallery Intern Relationship Specialty Start Date End Date Brandy Gilman APRN PCP - General 01/24/14 04/23/15 documented as of this encounter
--- OUTSIDE RECORDS SUMMARY | 2023-12-10 11:00 | XMS_ITS | Encounter Summary ---
[place] [address] Care Team Providers Care Cheese Grader Name Role Phone Brandy Gilman APRN Primary Care Provider +1- [phone] Encounter Details Date Type Department Care Team (Late st Contact Info) Description 11/30/2014 Telephone [place] [id number] Neva Harvey, RN Social History Tobacco Use Types Packs/Day Years Used Date Smoking Tobacco: Every Day Cigarettes 0.5 15 Smokeless Tobacco: Never Sex and Gender Information Value Date Recorded Sex Assigned at Not on file Gender Identity Not on file Sexual Orientation Not on file documented as of this encounter Miscellaneous Notes * Telephone Encounter - Neva Harvey RN - 11/30/2014 8:55 AM EDT Outgoing call to patient as her pharmacy had called yesterday to let [facility] know that per her insurance patient was only able to get a 14 day supply of her medication so we would need to write a new script for her. Spoke with Monica Osorio who agrees she will write a script for the remaining 14 days and patient will have to follow up in a month as planned. No answer left message for patient to call Nurse. Awaiting call back at this time. documented in this encounter Plan of Treatment Not on file documented as of this encounter Visit Diagnoses Not on filedocumented in this encounter Care Teams Cheese Grader Relationship Specialty Start Date End Date Brandy Gilman APRN PCP - General 01/24/14 04/23/15 documented as of this encounter
--- OUTSIDE RECORDS SUMMARY | 2023-12-10 11:00 | XMS_ITS | Encounter Summary ---
Author Organization [facility] [place] [address] Care Team Providers Care Material Analyst Name Role Phone KwokBrandy mchugh Mony GUILLEN Primary Care Provider +1- [phone] Reason for Referral * Physical Therapy (Routine) - Closed by system - Referral Specialty Diagnoses / Procedures Referred By Enedina t Referred To Contact Physical Therapy Diagnoses Chronic pain in right shoulder Monica Osorio [facility] [place] [address] Referral ID Status Reason Start Date Expiration Date Visits Requested Visits Authorized [id number] Closed by system - Referral Evaluate and Treat 4 08/17/2014 1 1 Reason for Visit * Reason Comments Right Shoulder Pain Encounter Details Date Type Department Care Team (Late st Contact Info) Description 02/18/2014 2:00 PM EST Follow-Up Pain Management at [place] [phone] Monica Osorio [facility] [place] [id number] Chronic pain in right shoulder Discharge Disposition: [...] Sign Reading Time Taken Comments Blood Pressure 130/61 02/18/2014 2:10 PM EST Pulse 97 02/18/2014 2:10 PM EST Temperature - - Respiratory Rate - - Oxygen Saturation 100% 02/18/2014 2:10 PM EST Inhaled Oxygen Concentration - - Weight 68.9 kg (152 lb) 02/18/2014 2:10 PM EST Height 157.5 cm (5' 2) 02/18/2014 2:10 PM EST Body Mass Index 27.8 02/18/2014 2:10 PM EST documented in this encounter Progress Notes * Monica Osorio, TRAIN CALLER - 02/18/2014 2:19 PM EST PAIN CLINIC FOLLOW-UP Nasrin Haney [id number] Reason for follow-up: Medical managment Chief Complaint: [...] Exacerbating/relieving activities: worse with repetitive movment and sleepin movement, better with heat and ice Rated as 3/10 Depression: is the past Anxiety: none Sleep: can be disrupted Smokin/2 ppd Alcohol: no 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 Chronic Opioid Therapy Pain Management Plan signed on 01/21/14 UDT: done on 01/21/14 Finding reflect medications we are prescribing. Review of Systems Constitutional Denies weight loss or gain, fevers, chills, nightsweats Cardiovascular Denies chest pain, palpitations. Respiratory Denies cough, SOB, CASE. Has URI today GI/ Denies constipation, diarrhea, nausea, vomiting, GERD, incontinence Musculoskeletal No weakness, falling Neurologic Denies fainting spells, seizures, memory loss. Has numbness and Paresthesia as noted. Physical Exam Blood pressure 130/61, pulse 97, height 157.5 cm (5' 2), weight 68.947 kg (152 lb), SpO2 100 %. Constitutional Nasrin Haney is seen today alone. Dressed appropriately for the weather with good hygiene. No pain behaviors. No Lety signs. Wearing a mask today for URI. Psychiatric He has good eye contact and a full range of affect. Lungs Clear to auscultation Cardiac Reg RR Musculoskeletal Moves easily in the exam room with a non antalgic gait. No ambulatory aids used. Assessment Chronic shoulder pain Recommendations/Plan Nasrin Haney and I reviewed her symptoms and care to date. Asking to be referred by to PT for her right arm weakness, which I did. Has had to go back to work or she was going to loose her home. Is wearing a mask today as she has a URI. Goal: Decreased pain Increased function No change in mood Orders Placed This Encounter Medications ??? oxyCODONE 10 mg Tablet Sig: Take 1 tablet by mouth 3 times daily. Dispense: 90 tablet Refill: 0 F/U one month MONICA OSORIO APRN cc: BRANDY KWOK APRN None documented in this encounter Plan of Treatment Scheduled Referrals Name Type Priority Associated Diagnoses Orde r Schedule Referral to Physical Therapy Outpatient Referral Routine Chronic pain in right shoulder Ordered: 02/18/2014 documented as of this encounter Visit Diagnoses Diagnosis Chronic pain in right shoulder Pain in joint, shoulder region documented in this encounter Care Teams Material Analyst Relationship Specialty Start Date End Date Brandy Kwok APRN PCP - General 01/24/14 04/23/15 documented as of this encounter
--- OUTSIDE RECORDS SUMMARY | 2023-12-10 11:00 | XMS_ITS | Encounter Summary ---
Author Organization [facility] [place] [address] Care Team Providers Care Orthodontist Assistant Name Role Phone Brandy Gilman APRN Primary Care Provider +1- [phone] Encounter Details Date Type Department Care Team (Late st Contact Info) Description 08/24/2014 Notes [place] [address] Michelle Posey APRN [facility] [place] [address] Social History Tobacco Use Types Packs/Day Years Used Date Smoking Tobacco: Every Day Cigarettes 0.5 15 Smokeless Tobacco: Never Sex and Gender Information Value Date Recorded Sex Assigned at Not on file Gender Identity Not on file Sexual Orientation Not on file documented as of this encounter Progress Notes * Michelle Posey APRN - 08/24/2014 1:16 PM EDT Error documented in this encounter Plan of Treatment Not on file documented as of this encounter Visit Diagnoses Not on filedocumented in this encounter Care Teams Orthodontist Assistant Relationship Specialty Start Date End Date Brandy Gilman APRN PCP - General 01/24/14 04/23/15 documented as of this encounter
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
--- OUTSIDE RECORDS SUMMARY | 2023-12-10 11:00 | XMS_ITS | Encounter Summary ---
[place] [address] Care Team Providers Care Firer Powerhouse Name Role Phone Brandy Gilman APRN Primary Care Provider +1- [phone] Encounter Details Date Type Department Care Team (Late st Contact Info) Description 05/18/2014 [place] [id number] Cinda Kitchen LPN Social History Tobacco Use Types Packs/Day Years Used Date Smoking Tobacco: Every Day Cigarettes 0.5 15 Smokeless Tobacco: Never Sex and Gender Information Value Date Recorded Sex Assigned at Not on file Gender Identity Not on file Sexual Orientation Not on file documented as of this encounter Miscellaneous Notes * Telephone Encounter - Cinda Hill LPN - 05/18/2014 4:29 PM EST Received call from Chika Sellers, nurse for Dr. Roscoe Cassidy from [place], [place]. She voiced the patient will be having shoulder surgery on 06/08/14. Dr. Cassidy is inquiring if Monica Osorio would prescribethe patient with post op pain medications? Monica Osorio notified. She will call Dr. Cassidy's officeto discuss pain medication management. documented in this encounter Plan of Treatment Not on file documented as of this encounter Visit Diagnoses Not on filedocumented in this encounter Care Teams Firer Powerhouse Relationship Specialty Start Date End Date Brandy Gilman APRN PCP - General 01/24/14 04/23/15 documented as of this encounter
--- OUTSIDE RECORDS SUMMARY | 2023-12-10 11:00 | XMS_ITS | Encounter Summary ---
Author Organization [facility] Address [facility] [place] [address] Care Team Providers Care Chiller Tender Name Role Phone Bee Levine APRN Primary Care Provider +1 [phone] Encounter Details Date Type Department Care Team (Late st Contact Info) Description 12/29/2006 [place] [address] Ruddy Wang MD [facility] [place] [address] Social History Tobacco Use Types Packs/Day Years [...] Associated Diagnosis Comments SURGICAL PATHOLOGY REPORT Routine 12/29/2006 5:36 PM EDT documented in this encounter Results * Surgical Pathology Report (12/29/2006 5:36 PM EDT) Surgical Pathology Report [id number] ? Location: [facility]; [facility]; A The signing pathologist has (i) examined the relevant preparation(s) for the specimen(s) and (ii) rendered or confirmed the diagnosis(es). . ?Pathology Surgical Pathology Final Report Clinical Information Specimen Submitted: A - Left lobe liver lesion: Abdomen for frozen section Clinical Diagnosis: Liver lesion Frozen Section Diagnosis Frozen section(s) performed. ??Please refer to separate electronic frozen section report(s). Gross Description Labeled/Fixative: ? Left lobe liver lesion, abdomen; fresh. Qty/Size/Weight: ?One, 4.0 x 3.2 x 1.8 cm. Tissue Description: ?? Wedge of liver. ??The specimen is red-jones, smooth, and ?glistening. ??The capsular surface at the resection margin is jones-red and ragged. ??Serial sectioning reveals a questionable mass that is 0.2 cm from the nearest resection margin and measures 1.2 x 0.9 x 0.8 cm. ??Jones-red, solid, lobular lesion. Sections/Processi ng: ??The resection margin is inked black. ??The specimen is ?serially sectioned into ten cross sections, and the lesion is found grossly in (3-6). ??(1) frozen section residual; (2) tissue, slice II; (3) tissue slice II; (4) tissue slice III; (5) tissue slice V; (6) tissue slice V; (7) tissue slice ; (8) tissue slice VII; (9-10) tissue slice VIII; (11) tissue slice IX; (12) tissue slice X. ??(T12) ??aje/JDK Microscopic Description Slides reviewed, microscopic description not recorded. Diagnosis Liver, left lobe, wedge resection: Focal nodular hyperplasia (1.4cm). Resection margin is negative for tumor. The surrounding liver parenchyma shows mild steatosis, otherwise unremarkable. CR-0 12/31/06 AAS 12/31/06 Verified by: ? Pk Benitez MD ?Pathologist ?(Electronic Signature) The attending pathologist whose signature appears on this report has reviewed all diagnostic slides and has edited the gross and/or microscopic portion of the report in rendering the final pathologic diagnosis. ? Pathology Frozen Section Report Frozen Section Report _A - Left lobe liver lesion: Abdomen for frozen section: Mild chronic nonspecific inflammation. ??No mass lesion detected. . Frozen Section Report 12/29/2006 6:10 PM 12/29/06 ??Verified by: ??Ayaka Banerjee DO, Pathologist The attending pathologist whose electronic signature appears on this report has reviewed all diagnostic slides in rendering the frozen section diagnosis. This intraoperative consultation should be interpreted as a preliminary diagnosis pending review of the entire specimen and special studies, if any. RED SAWYER 12/29/2006 5:36 PM EDT Ruddy Wang MD PATHOLOGY/CYTOLOGY O SHARON Performing Organization Address City/State/[facility] Co de Phone Number RED SAWYER documented in this encounter Visit Diagnoses Not on filedocumented in this encounter Care Teams Chiller Tender Relationship Specialty Start Date End Date Bee Levine, CELLAR WORKER PCP - General Family Medicine 04/24/15 documented as of this encounter
--- OUTSIDE RECORDS SUMMARY | 2023-12-10 11:00 | XMS_ITS | Encounter Summary ---
Author Organization Formerly [facility] [place] [address] Care Team Providers Care In Store Banker Name Role Phone Brandy Gilman WILMER Primary Care Provider +1- [phone] Reason for Visit * Reason Comments Right Shoulder Pain Encounter Details Date Type Department Care Team (Latest Contact Info) Description 09/21/2014 10:15 AM EDT Procedure [place] [address] Michelle Posey SENIOR JAVA PROGRAMMER ANALYST [facility] [place] [address] Myalgia and myositis, unspecified Discharge Disposition: Home Social History Tobacco Use Types Packs/Day Years Used Date Smoking Tobacco: Every Day Cigarettes 0.5 15 Smokeless Tobacco: Never Sex and Gender Information Value Date Recorded Sex Assigned at Not on file Gender Identity Not on file Sexual Orientation Not on file documented as of this encounter Last Filed Vital Signs Vital Sign Reading Time Taken Comments Blood Pressure 94/54 09/21/2014 10:43 AM EDT Pulse 66 09/21/2014 10:43 AM EDT Temperature - - Respiratory Rate - - Oxygen Saturation 99% 09/21/2014 10:43 AM EDT Inhaled Oxygen Concentration - - Weight 62.1 kg (137 lb) 09/21/2014 10:43 AM EDT Height 157.5 cm (5' 2) 09/21/2014 10:43 AM EDT Body Mass Index 25.06 09/21/2014 10:43 AM EDT documented in this encounter Procedure Notes * Michelle Posey APRN - 09/21/2014 11:40 AM EDTAssociated Order(s): TRIGGER POINT INJECTION - 3 OR 4 MUSCLES Procedure(s): TRIGGER POINT INJECTION - 3 OR 4 MUSCLES Pre-Procedure Diagnose(s): Myalgia and myositis, unspecified TRIGGER POINT INJECTION PROCEDURE NOTE The patient complains of shoulder and back muscle pain. Dx: Muscle Pain (729.1) Ms. Haney was greeted by the nurse who verified patient's name and . Ms. Haney was interviewed and the medical record reviewed. There were no medical, pharmacologic, radiographic, or other structural contraindications to attempting trigger point injections to the R trapezius, R supraspinatus, R infraspinatus and R latissimus dorsi muscles. Risks and potential side effects were discussed. The potential benefits of the procedure were reviewed with Ms. Haney and her voiced concerns were addressed. After obtaining informed consent, the patient consent form was signed. Standard time-out procedure was performed. Ms. Haney was placed in the prone position on the examination table. The skin entry point for entering/approaching the R trapezius, R supraspinatus, R infraspinatus and R latissimus dorsi muscles were marked. The skin was thoroughly prepared with chlorhexadine preparation. Next, I entered the skin u sing a medial to lateral approach with a 3.5 25G spinal needle. Aspiration revealed no blood or other fluid. Next, point anesthesia was obtained by injecting 1% Lidocaine. Multiple passes through the muscles were completed which resulted in muscle twitching. Patient tolerated the procedure well. Follow up plans and appointments were discussed with Ms. Haney. Post procedure instruction was given. Having met discharge criteria she was discharged from the [facility] Management [facility]. Patient will follow up as scheduled for medication refill and re-evaluation with Monica Osorio APRN. Michelle Posey APRN [facility] Pain Management CC: Brandy Gilman APRN [address] [place] [address] documented in this encounter Plan of Treatment Not on file documented as of this encounter Procedures Procedure Name Priority Date/Time Associated Diagnosis Comments TRIGGER POINT INJECTION - 3 OR 4 MUSCLES Routine 09/21/2014 11:47 AM EDT Myalgia and myositis, unspecified documented in this encounter Results * TRIGGER POINT INJECTION - 3 OR 4 MUSCLES (09/21/2014 11:47 AM EDT) Narrative Michelle Posey APRN - 09/21/2014 11:47 AM EDT Michelle Posey APRN ? 09/21/2014 11:47 AM TRIGGER POINT INJECTION PROCEDURE NOTE The patient complains of shoulder and back muscle pain. Dx: Muscle Pain (729.1) Ms. Haney was greeted by the nurse who verified patient's name and . ?? Ms. Haney was interviewed and the medical record reviewed. ??There were no medical, pharmacologic, radiographic, or other structural contraindications to attempting trigger point injections to the R trapezius, R supraspinatus, R infraspinatus and R latissimus dorsi ??muscles. Risks and potential side effects were discussed. ?? The potential benefits of the procedure were reviewed with Ms. Haney and her voiced concerns were addressed. ??After obtaining informed consent, the patient consent form was signed. ??Standard time-out procedure was performed. Ms. Haney was placed in the prone position on the examination table. ??The skin entry point for entering/approaching the R trapezius, R supraspinatus, R infraspinatus and R latissimus dorsi muscles were marked. ??The skin was thoroughly prepared with chlorhexadine preparation. ??Next, I entered the skin using a medial to lateral approach with a 3.5 25G spinal needle. ?? Aspiration revealed no blood or other fluid. ??Next, point anesthesia was obtained by injecting 1% Lidocaine. ??Multiple passes through the muscles were completed which resulted in muscle twitching. ??Patient tolerated the procedure well. Follow up plans and appointments were discussed with Ms. Haney. ?? Post procedure instruction was given. ??Having met discharge criteria she was discharged from the Pain Management Center. Patient will follow up as scheduled for medication refill and re-evaluation with Mnoica Osorio APRN. Michelle Posey APRN [facility] Pain Management CC: Brandy Gilman APRN [address] [place] [address] Ruddy Melendez DO NEUROLOGY ORDERABLES documented in this encounter Visit Diagnoses Diagnosis Myalgia and myositis, unspecified Mylagia and myositis, unspecified documented in this encounter Administered Medications Inactive Administered Medications - up to 3 most recent administrations Medication Order MAR Action Action Date Dose Rate Site lidocaine (PF) (XYLOCAINE) 10 mg/mL (1 %) injection 60 mg 60 mg, Subcutaneous, ONCE, 1 dose, On Fri09/21/14 at 1200, Routine Given 09/21/2014 11:39 AM EDT 60 mg documented in this encounter Care Teams In Store Banker Relationship Specialty Start Date End Date Brandy Gilman APRN PCP - General 01/24/14 04/23/15 documented as of this encounter
--- OUTSIDE RECORDS SUMMARY | 2023-12-10 11:00 | XMS_ITS | Encounter Summary ---
[place] [address] Care Team Providers Care Boiler Out Name Role Phone Brandy Gilman APRN Primary Care Provider +1- [phone] Encounter Details Date Type Department Care Team (Late st Contact Info) Description 01/05/2015 [place]phone [place] [phone] Neva Harvey, RN Social History Tobacco Use Types Packs/Day Years Used Date Smoking Tobacco: Every Day Cigarettes 0.5 15 Smokeless Tobacco: Never Sex and Gender Information Value Date Recorded Sex Assigned at Not on file Gender Identity Not on file Sexual Orientation Not on file documented as of this encounter Miscellaneous Notes * Telephone Encounter - Neva Harvey RN - 01/05/2015 3:54 PM EDT Pain Management Center Preauthorization Request Patient: Nasrin Haney [id number] Fax received from [facility] requesting we obtain prior authorization for Ketamine Baclofen, Diclofenac, Gabapentin Lidocaine cream prescribed by Michelle Posey APRN. RX insurance plan: [place] Medicaid RX insurance telephone: Patient Diagnosis: Chronic pain right shoulder, Pain management termite renewal inspector use of medications Previous medications attempted: Ibuprofen, NSAIDS, Tramadol The following action was taken after discussion with the employee service officer: _X_ approved, patient informed _X_ pharmacy informed _X_ faxed approval sent to Medical Records (if received) Authorized dosage or amount: Ketamine Baclofen, Diclofenac, Gabapentin Lidocaine Authorized duration: 01/05/2015 to 07/07/2015 Authorization/Reference number: [id number], Neva Harvey RN documented in this encounter Plan of Treatment Not on file documented as of this encounter Visit Diagnoses Not on filedocumented in this encounter Care Teams Boiler Out Relationship Specialty Start Date End Date Brandy Gilman APRN PCP - General 01/24/14 04/23/15 documented as of this encounter
--- OUTSIDE RECORDS SUMMARY | 2023-12-10 11:00 | XMS_ITS | Encounter Summary ---
Author Organization [facility] [place] [address] Care Team Providers Care Supplier Development Manager Name Role Phone Brandy Gilman APRN Primary Care Provider +1- [phone] Reason for Visit * Reason Onset Date Comments Medication Refill 11/30/2014 Encounter Details Date Type Department Care Team (Late st Contact Info) Description 11/30/2014 Refill [place] [address] Neva Harvey, RN Social History Tobacco Use Types Packs/Day Years Used Date Smoking Tobacco: Every Day Cigarettes 0.5 15 Smokeless Tobacco: Never Sex and Gender Information Value Date Recorded Sex Assigned at Not on file Gender Identity Not on file Sexual Orientation Not on file documented as of this encounter Miscellaneous Notes * Addendum Note - Neva Harvey RN - 11/30/2014 12:50 PM EDTAddended by: NEVA HARVEY on: 11/30/2014 12:50 PM Modules accepted: Orders documented in this encounter Plan of Treatment Not on file documented as of this encounter Visit Diagnoses Not on filedocumented in this encounter Care Teams Supplier Development Manager Relationship Specialty Start Date End Date Brandy Gilman APRN PCP - General 01/24/14 04/23/15 documented as of this encounter
--- OUTSIDE RECORDS SUMMARY | 2023-12-10 11:00 | XMS_ITS | Encounter Summary ---
[place] [address] Care Team Providers Care Sand Filler Name Role Phone Brandy Gilman APRN Primary Care Provider +1- [phone] Encounter Details Date Type Department Care Team (Late st Contact Info) Description 11/29/2014 Telephone [place] [phone] Akosua Santana, RN Social History Tobacco Use Types Packs/Day Years Used Date Smoking Tobacco: Every Day Cigarettes 0.5 15 Smokeless Tobacco: Never Sex and Gender Information Value Date Recorded Sex Assigned at Not on file Gender Identity Not on file Sexual Orientation Not on file documented as of this encounter Miscellaneous Notes * Telephone Encounter - Akosua Leija RN - 11/29/2014 1:30 PM EDT Call received from patients pharmacy reporting they can only dispense 28 tabs (14 day supply) of Oxycodone 5 mg For patients first fill of medication due to insurance restrictions. documented in this encounter Plan of Treatment Not on file documented as of this encounter Visit Diagnoses Not on filedocumented in this encounter Care Teams Sand Filler Relationship Specialty Start Date End Date Brandy Gilman APRN PCP - General 01/24/14 04/23/15 documented as of this encounter
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
[2023-12-10 12:16] VITALS: BP 108/76; PULSE 68; RESP 18; TEMP 36.8; O2SAT 98
== END 2023-12-10 12:32 | disposition home or self-care (01) ==
PROVIDERS: Emergency Provider Emergency Medicine; PCP Physician Assistant
DX: T74.11XA Adult physical abuse, confirmed, initial encounter (principal); F17.210 Nicotine dependence, cigarettes, uncomplicated; Y07.030 Male partner, current, perpetrator of maltreatment and neglect
CPT/HCPCS: 36415; 80053; 82962; 99284; 70450; 70486; 71046; 72125; 80320; 80329; 84443; 84703; 85025

== ENCOUNTER 2024-02-07 14:38 | Emergency (ER) | payer SELFPAY ==
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
[2024-02-07 14:25] VITALS: BP 142/84; PULSE 74; RESP 16; TEMP 36.8; O2SAT 100
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
--- OUTSIDE RECORDS SUMMARY | 2024-02-07 14:45 | XMS_ITS | Encounter Summary ---
Author Organization [facility] Address [address] [place] [address] Care Team Providers Care Insight Leader Name Role Phone Bee Levine BULLET CHARGING MACHINE OPERATOR Primary Care Provider [phone] Encounter Details Date Type Department Care Team (Late st Contact Info) Description 09/10/[address] [facility] Pathology & Laboratory Medicine - [address] [address] Outr Resulting Lab, Provider Social History Tobacco [...] Outr Resulting Lab MICROBIOLOGY - GENERAL ORDERABLES [facility] [address] [place] [address] * COVID-19 TESTING (09/10/2021 12:45 EDT) COVID-19 rt-PCR Result Negative Negative 09/12/2021 12:37 EDT [facility] Comment: This test has [...] performed using the tyrell SARS-CoV-2 assay ([employer] on the Tyrell 6800 System Performing Lab Tyrell 6800 [facility] 09/12/2021 12:37 EDT [facility] Swab 09/10/2021 12:4 5 EDT 09/11/2021 21:11 EDT Provider Outr Resulting Lab MICROBIOLOGY - GENERAL ORDERABLES [facility] [address] [place] [address] documented in this encounter Visit Diagnoses Not on filedocumented in this encounter Care Teams Insight Leader Relationship Specialty Start Date End Date Bee Levine NP PCP - General 12/22/19 documented as of this encounter
--- OUTSIDE RECORDS SUMMARY | 2024-02-07 14:45 | XMS_ITS | Encounter Summary ---
Author Organization [facility] Address [address] [place] [address] Care Team Providers Care Clothing Man Name Role Phone Bee Levine CONCESSION ATTENDANT Primary Care Provider [phone] Encounter Details Date Type Department Care Team (Late st Contact Info) Description 12/22/2019 Lab Requisition [facility] Pathology & Laboratory Medicine - [address] [address] Cordell Thomas MD [address] [place] [id number] Encounter for other general examination Social History [...] - Corpus luteal cyst. 12/28/2019 16:43 EDT [facility] Attestation There was significant resident/fellow involvement in the diagnostic evaluation of this case. By the signature below, the attending physician certifies that they have personally conducted a gross and/or microscopic examination of the described specimens and rendered or confirmed the above diagnosis. 12/28/2019 16:43 EDT [facility] at 1643 Clinical History Ovarian cyst 12/28/2019 16:43 EDT [facility] Gross Description A. Received in formalin labelled with proper patient identification (initials Y, M) and left ovarian cyst is a previously disrupted cyst (1.7 x 1.4 x 0.5 cm). The outer surface is smooth, devine-pink. The inner lining is smooth to wrinkled and without excrescences or gross lesions. The wall averages 0.1 cm in thickness. No normal ovarian parenchyma is present. Archivist Economic History sections are submitted in A1. PATT MATTHEWS 12/23/2019 8:02 12/28/2019 16:43 EDT [facility] Resident/Jasmeet w: Mark Francois MD 12/28/2019 16:43 EDT [facility] Performing Lab [facility] 12/28/2019 16:43 EDT [facility] Scanned Images 12/28/2019 16:43 EDT [facility] Tissue ENTIRE OVARY / Unknown 12/22/2019 8:15 EDT 12/22/2019 17:20 EDT Cordell Thomas MD PATHOLOGY ORDERABLES [facility] [address] [place] [address] documented in this encounter Visit Diagnoses Diagnosis Encounter for other general examination documented in this encounter Care Teams Clothing Man Relationship Specialty Start Date End Date Bee Levine NP PCP - General 12/22/19 documented as of this encounter
--- OUTSIDE RECORDS SUMMARY | 2024-02-07 14:45 | XMS_ITS | Encounter Summary ---
Author Organization [facility] Address [address] [place] [address] Care Team Providers Care Industrial Tractor Driver Name Role Phone Unknown, Provider Primary Care Provider Unava ilable Encounter Details Date Type Department Care Team (Late st Contact Info) Description 10/30/2012 Results Only [facility] [phone] Cinda Cuadra, [facility] [address] [place] [address] Social History Tobacco Use Types Packs/Day Years [...] ? NASRIN HANEY ? Accession #: ? [id number] ? : ? 1985 (Age: 27) ??F [...] types 16,18,31,33,35, 39,45,51,52,56,58, 59,66, and 68 by email marketing specialist mediated amplification. Comments Document reviewed and electronically signed by: ? System Interface ? Report date: 11/13/2012 By the signature above, the attending physician certifies that he/she has personally conducted a gross and/or microscopic examination of the described specimens and rendered or confirmed the above diagnosis. End of Report [facility] 10/30/2012 11/02/2012 Cinda Cuadra CNM PATHOLOGY ORDERAB LES Performing Organization Address City/State/[facility] Co de Phone Number [facility] [address] [place] [address] documented in this encounter Visit Diagnoses Not on filedocumented in this encounter Care Teams Industrial Tractor Driver Relationship Specialty Start Date End Date Unknown, Provider, PCP - General 04/04/09 12/21/19 documented as of this encounter
--- OUTSIDE RECORDS SUMMARY | 2024-02-07 14:45 | XMS_ITS | Referral Summary ---
Author Organization [facility] Address [address] [place] [address] Care Team Providers Care Suction Worker Name Role Phone Bee Levine NP Primary Care Provider [phone] Social History Tobacco Use Types Packs/Day Years Used Date Smoking Tobacco: Never Assessed Interpersonal Safety Answer Date Record ed Physically Hurt Never 12/29/2019 Verbally Threaten Not on file 12/29/2019 Sex and Gender Information Value Date Recorded Sex Assigned at Not on file Gender Identity Not on file Sexual Orientation Not on file Plan of Treatment Not on file Care Teams Suction Worker Relationship Specialty Start Date End Date Bee Levine, MARIA GUADALUPE PCP - General 12/22/19
--- OUTSIDE RECORDS SUMMARY | 2024-02-07 14:45 | XMS_ITS | Encounter Summary ---
Author Organization [facility] Address [address] [place] [address] Care Team Providers Care Track Dresser Name Role Phone Unknown, Provider Primary Care Provider Unava ilable Encounter Details Date Type Department Care Team (Late st Contact Info) Description 09/18/2015 Results Only [facility] [phone] Bee Levine, MEDIA MARKETING SPECIALIST [address] [place] [phone] Social History Tobacco Use Types Packs/Day [...] ? NASRIN HANEY ? Accession #: ? [id number] ? : ? 1985 (Age: 30) ??F ?Collect Date: ? 09/18/2015 ? Location: ? [facility] ? Receive Date: ? 09/20/2015 ? Provider: BEE GARZON TANK SETTER Copy to: ? Final Report SPECIMEN ADEQUACY [...] types 16,18,31,33,35, 39,45,51,52,56,58, 59,66, and 68 by senior qa tester mediated amplification. Comments Document reviewed and electronically signed by: ? System Interface ? Report date: 10/05/2015 By the signature above, the attending physician certifies that he/she has personally conducted a gross and/or microscopic examination of the described specimens and rendered or confirmed the above diagnosis. End of Report [facility] 09/18/2015 09/20/2015 [place] Levine NP PATHOLOGY ORDERABLES [facility] [address] [place] [address] documented in this encounter Visit Diagnoses Not on filedocumented in this encounter Care Teams Track Dresser Relationship Specialty Start Date End Date Unknown, Provider, PCP - General 04/04/09 12/21/19 documented as of this encounter
--- OUTSIDE RECORDS SUMMARY | 2024-02-07 14:45 | XMS_ITS | Encounter Summary ---
Author Organization [facility] Address [address] [place] [address] Care Team Providers Care Paint Spray Tender Name Role Phone Unknown, Provider MD Primary Care Provider Bee Bangura MEDICAL TRANSCRIPTION Primary Care Provider [phone] Encounter Details Date Type Department Care Team (Late st Contact Info) Description 12/17/2019 Lab Requisition [facility] Pathology & Laboratory Medicine - [address] [address] Outr Resulting Lab, Provider Social History Tobacco [...] rt-PCR Result NEGATIVE Negative 12/18/2019 17:54 EDT [facility] Comment: 2019-novel Coronavirus (2019-nCoV) not [...] in accordance with CLIA regulations, College of [employer]ologists (CAP) guidelines (Jun 24, 2019), and FDA guidance (Jun 05, 2019). This test is only for use under the Food and Drug Administration's Emergency Use Authorization. Swab ENTIRE NASOPHARYNX / Unknown 12/17/2019 14:17 EDT 12/17/2019 21:24 EDT Provider Outr Resulting Lab MICROBIOLOGY - GENERAL ORDERABLES [facility] [place], [place] * COVID-19 TESTING (12/17/2019 14:17 EDT) COVID-19 rt-PCR Result NEGATIVE Negative 12/18/2019 20:24 EDT [facility] Comment: 2019-novel Coronavirus (2019-nCoV) not detected [...] in accordance with CLIA regulations, College of [place] Pathologists (CAP) guidelines (Jun 24, 2019), and FDA guidance (Jun 05, 2019). This test is only for use under the Food and Drug Administration's Emergency Use Authorization. Performing Lab [facility] 12/18/2019 20:24 EDT [facility] Swab 12/17/2019 14:1 7 EDT 12/17/2019 21:24 EDT Provider Outr Resulting Lab MICROBIOLOGY - GENERAL ORDERABLES [facility] [address] [place], [place] [id number] [place] [address] LABORATORY [place], [place] documented in this encounter Visit Diagnoses Not on filedocumented in this encounter Care Teams Paint Spray Tender Relationship Specialty Start Date End Date Unknown, Provider, PCP - General 04/04/09 12/21/19 Bee Levine, MEDICAL TRANSCRIPTION PCP - General 12/22/19 documented as of this encounter
--- OUTSIDE RECORDS SUMMARY | 2024-02-07 14:45 | XMS_ITS | Encounter Summary ---
Author Organization [facility] Address [address] [place] [address] Care Team Providers Care Glassware Defect Repairer Name Role Phone Bee Levine HEEL SANDER Primary Care Provider [phone] Encounter Details Date Type Department Care Team (Late st Contact Info) Description 01/21/2020 Lab Requisition [facility] Pathology & Laboratory Medicine - [address] [address] Outr Resulting Lab, Provider Social History Tobacco [...] Outr Resulting Lab MICROBIOLOGY - GENERAL ORDERABLES [facility] [address] [place] [address] * COVID-19 TESTING (01/21/2020 14:05 EDT) COVID-19 rt-PCR Result Negative Negative 01/22/2020 1:49 EDT [facility] Comment: This test has not [...] history, and epidemiological information. Performed on the [employer]ge Electric[employer] Fusion instrument Performing Lab [place] [facility] 01/22/2020 1:49 EDT [facility] Swab 01/21/2020 14:0 5 EDT 01/21/2020 20:59 EDT Provider Outr Resulting Lab MICROBIOLOGY - GENERAL ORDERABLES [facility] [address] [place] [address] documented in this encounter Visit Diagnoses Not on filedocumented in this encounter Care Teams Glassware Defect Repairer Relationship Specialty Start Date End Date Bee Levine NP PCP - General 12/22/19 documented as of this encounter
--- OUTSIDE RECORDS SUMMARY | 2024-02-07 14:45 | XMS_ITS | Encounter Summary ---
Author Organization [facility] Address [address] [place] [address] Care Team Providers Care Event Manager Name Role Phone Unknown, Provider MD Primary Care Provider Bee Bangura INVESTIGATION MANAGER Primary Care Provider [phone] Encounter Details Date Type Department Care Team (Late st Contact Info) Description 12/17/2019 Lab Requisition [facility] Pathology & Laboratory Medicine - [address] [address] Cordell Thomas MD [address] [place] [address] Encounter for other general examination Social History [...] types, PCR Negative Negative 12/27/2019 15:22 T [facility] Comment:No E6 or E7 mRNA is detected from HPV types 16,18,31,33,35,39,45,51,52,56,58,59,66, and 68 by telecommunications facility examiner mediated amplification. Papanicolaou smear specimen (specimen) CERVIX UTERI STRUCTURE / Unknown 12/17/2019 11:35 EDT 12/26/2019 19:29 EDT Cordell Thomas MD MICROBIOLOGY - [facility] AL ORDERABLES [facility] [address] [place] [address] * PAP TEST (12/17/2019 11:35 EDT) Specimens A. Cervix and/or Endocervix , ThinPrep Imaging System with Manual Evaluation 12/27/2019 15:22 [facility] Specimen Adequacy Satisfactory for Evaluation - transformation zone component present 12/27/2019 15:22 [facility] General Categorization Negative for intraepithelial lesion or malignancy 12/27/2019 15:22 [facility] Descriptive Diagnosis Shift in maricel present suggestive of bacterial vaginosis. 12/27/2019 15:22 [facility] Attestation . 12/27/2019 15:22 [facility] at 1522 Clinical History NONE 12/27/19 20 15:22 [facility] HPV The result for the Human Papillomavirus (HPV) Detection-High Risk Types is Negative. No E6 or E7 mRNA is detected from HPV types 16,18,31,33,35,39 ,45,51,52,56,58,5 9,66, and 68 by telecommunications facility examiner mediated amplification.Sade ting was performed on specimen [id number] and was resulted on 12/27/2019 1518 EDT by TOPHER, LAB INSTRUMENT RESULTS IN 12/27/2019 15:22 T [facility] Performing Lab [facility] 12/27/2019 15:22 EDT [facility] Scanned Images 12/27/2019 15:22 EDT [facility] Papanicolaou smear specimen (specimen) CERVIX UTERI STRUCTURE / Unknown 12/17/2019 11:35 EDT 12/21/2019 9:17 EDT Cordell Thomas MD PATHOLOGY ORDERABLES Performing Organization Address City/[facility]/ZIP Co de Phone Number [facility] [address] [place] [address] * CHLAMYDIA/N. GONORRHOEAE AMPLIFIED RNA, THINPREP (12/17/2019 11:35 EDT) Neisseria gonorrhoeae Result Negative Negative 12/21/2019 14:39 EDT [facility] Chlamydia trachomatis Result Negative Negative 12/21/2019 14:39 EDT [facility] Papanicolaou smear specimen (specimen) CERVIX UTERI STRUCTURE / Unknown 12/17/2019 11:35 EDT 12/20/2019 10:56 EDT Cordell Thomas MD MICROBIOLOGY - GENER AL ORDERABLES Performing Organization Address City/[facility]/ZIP Co de Phone Number [facility] [address] [place] [address] documented in this encounter Visit Diagnoses Diagnosis Encounter for other general examination documented in this encounter Care Teams Event Manager Relationship Specialty Start Date End Date Unknown, Provider, PCP - General 04/04/09 12/21/19 Bee Levine, INVESTIGATION MANAGER PCP - General 12/22/19 documented as of this encounter
--- OUTSIDE RECORDS SUMMARY | 2024-02-07 14:45 | XMS_ITS | Encounter Summary ---
Author Organization [facility] Address [address] [place] [address] Care Team Providers Care Metalizer Field Operation Name Role Phone Unknown, Provider Primary Care Provider Unava ilable Encounter Details Date Type Department Care Team (Late st Contact Info) Description 10/04/2009 Results Only [facility] Laboratory Services - [facility] ([facility]) [address] [place], [place] [address] Rashida [place] [id number] Social History Tobacco Use Types Packs/Day Years [...] CNM MICROBIOLOGY - GENER AL ORDERABLES [facility] [address] [place] [address] * CYTOPATHOLOGY (10/04/2009 0:00 EDT) Pathology Report: CYTOPATHOLOGY REPORT ? Reports generated via electronic interface contain original data; ? however they are lacking the format of the original report. ? Caution should be taken when reading/interpreti ng unformatted reports. ? Name: ? NASRIN HANEY ? Accession #: ? [id number] ? : ? 1985 (Age: 24) ??F [...] 10/04/2009 10/05/2009 Rashida Monterroso CNM PATHOLOGY ORDERABLES [facility] [address] [place] [address] documented in this encounter Visit Diagnoses Not on filedocumented in this encounter Care Teams Metalizer Field Operation Relationship Specialty Start Date End Date Unknown, Provider, PCP - General 04/04/09 12/21/19 documented as of this encounter
--- OUTSIDE RECORDS SUMMARY | 2024-02-07 14:45 | XMS_ITS | Clinical Summary ---
Author Organization [facility] Address [address] [place] [address] Care Team Providers Care Laborer Hoisting Name Role Phone Bee Levine NP Primary Care Provider Social History Tobacco Use Types Packs/Day [...] COVID-19 Vaccine ( season) 2022 Care Teams Laborer Hoisting Relationship Specialty Start Date End Date Bee Levine NP PCP - General 12/22/19
--- OUTSIDE RECORDS SUMMARY | 2024-02-07 14:46 | XMS_ITS | Encounter Summary ---
Author Organization [facility] Address [address] [place] [address] Care Team Providers Care Special Service Officer Name Role Phone Unavailable Primary Care Provider Unavailabl e Encounter Details Date Type Department Care Team (Late st Contact Info) Description 08/31/2008 Orders Only [facility] Laboratory Services - [facility] ([facility]) [address] [place], [place] [address] Shadia Barrow CNM [address] [address] Social History Tobacco Use Types Packs/Day Years [...] ? NASRIN HANEY ? Accession #: ? [id number] ? : ? 1985 (Age: 23) ??F [...] reviewed and electronically signed by: ? Michelle Johanna, CT(ASCP) ? Report Date: ??09/05/2008 10:39 ? End of Report ? [facility] 08/31/2008 09/01/2008 Shadia Barrow CNM PATHOLOGY ORDERABLES [facility] [address] [place] [address] documented in this encounter Visit Diagnoses Not on filedocumented in this encounter
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
--- OUTSIDE RECORDS SUMMARY | 2024-02-07 14:46 | XMS_ITS | Encounter Summary ---
[place] [address] Care Team Providers Care Edger Saw Operator Name Role Phone Brandy Gilman APRN Primary Care Provider [phone]- [phone] Encounter Details Date Type Department Care Team (Late st Contact Info) Description 03/23/2014 [place]phone [place] [phone] Cinda Kitchen LPN Social History Tobacco Use [...] on filedocumented in this encounter Care Teams Edger Saw Operator Relationship Specialty Start Date End Date Brandy Gilman APRN PCP - General 01/24/14 04/23/15 documented as of this encounter
--- OUTSIDE RECORDS SUMMARY | 2024-02-07 14:46 | XMS_ITS | Encounter Summary ---
Author Organization [facility] [place] [address] Care Team Providers Care Laborer/Key Man Name Role Phone Brandy Gilman APRN Primary Care Provider [phone]- [phone] Encounter Details Date Type Department Care Team (Late st Contact Info) Description 02/14/2014 Telephone [place] [phone] Cinda Kitchen LPN Social History Tobacco Use [...] to plan of care. Patient transferred to network support engineer. documented in this encounter Plan of Treatment Not on file documented as of this encounter Visit Diagnoses Not on filedocumented in this encounter Care Teams Laborer/Key Man Relationship Specialty Start Date End Date Brandy Gilman APRN PCP - General 01/24/14 04/23/15 documented as of this encounter
--- OUTSIDE RECORDS SUMMARY | 2024-02-07 14:46 | XMS_ITS | Encounter Summary ---
[place] [address] Care Team Providers Care Waste Oil Pumper Name Role Phone Brandy Gilman APRN Primary Care Provider +1- [phone] Encounter Details Date Type Department Care Team (Late st Contact Info) Description 01/05/2015 [place] [phone] Neva Harvey, RN Social History Tobacco Use [...] Management Center Preauthorization Request Patient: Nasrin Haney [id number] Fax received from [facility] requesting we obtain prior authorization for Ketamine Baclofen, Diclofenac, Gabapentin Lidocaine cream prescribed by Michelle Posey APRN. RX insurance plan: [place] Medicaid RX insurance telephone: Patient Diagnosis: Chronic pain right shoulder, Pain management intermediate use of medications Previous medications attempted: Ibuprofen, NSAIDS, Tramadol The following action was taken after discussion with the juke box servicer: _X_ approved, patient informed _X_ pharmacy informed _X_ faxed approval sent to Medical Records (if received) Authorized dosage or amount: Ketamine Baclofen, Diclofenac, Gabapentin Lidocaine Authorized duration: 01/05/2015 to 07/07/2015 Authorization/Reference number: [id number], Neva Harvey RN documented in this encounter Plan of Treatment Not on file documented as of this encounter Visit Diagnoses Not on filedocumented in this encounter Care Teams Waste Oil Pumper Relationship Specialty Start Date End Date Brandy Gilman APRN PCP - General 01/24/14 04/23/15 documented as of this encounter
--- OUTSIDE RECORDS SUMMARY | 2024-02-07 14:46 | XMS_ITS | Encounter Summary ---
Author Organization [facility] [address] Care Team Providers Care Car Repairer Helper Name Role Phone Brandy Gilman WILMER Primary Care Provider [phone]- [phone] Reason for Referral * Rehabilitation (Routine) - Declined by Patient Specialty Diagnoses / Procedures Referred By Enedina malhotra Referred To Contact Orthopaedics Diagnoses Chronic pain in right shoulder Malik Bridges [facility] [place] [place] [address] [facility] [address] [place] [address] Referral ID Status Reason Start Date Expiration Date Visits Requested Visits Authorized [id number] Declined by Patient Consult, Test & Treat [...] PM EST Office [place] [address] Malik Bridges [facility] [place] [address] Chronic pain in right shoulder; [...] 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 She is interested in learning [...] Urine Confirmation (02/21/2015 2:37 PM EST) Pathologist [facility] U THC Conf Test ? Result ?? Flag ??Unit ?? RefValue Drug of Abuse, THC Conf, U ??GC/MS Confirmation - ? Positive ?THC ??THC Carboxylic Acid ?5712 ? ng/mL ??Cutoff:<3 ---ADDITIONAL INFORMATION----- This report is intended for use in clinical monitoring and management of patients. It is not intended for use in employment-relat ed drug testing. Test Performed by: [facility] [address] [address] Customer Service Representative Teller: Mela Yonug, Ph.D. RED SAWYER Urine specimen (specimen) 02/21/2015 2:37 PM EST 02/22/2015 8:33 AM EST Narrative Resulting Agency Comment Spec In Lab Ulisses Clarke MD LAB SEND OUT [facility] RED SAWYER * Drug Screen with Confirmation, Urine (02/21/2015 2:37 PM EST) U ZANDRA w/Conf Test ? [...] ??Morphine ? Negative ? ng/mL ??<100 ??Oxycodone ?26088 ?ng/mL ??<100 ??Oxymorphone ?6480 ? ng/mL ??<100 --ADDITIONAL INFORMATION------ This report is intended for use in clinical monitoring and management of patients. It is not intended for use in employment-relate d drug testing. Test Performed by: [place] [address] Customer Service Representative Teller: Mela Young, Ph.D. RED SAWYER Urine specimen (specimen) 02/21/2015 2:37 PM EST 02/22/2015 8:33 AM EST Narrative Resulting Agency Comment Spec In Lab Ulisses Clarke MD URINE ORDERABLES Performing Organization Address City/State/[facility] Co de Phone Number RED SAWYER documented in this encounter Visit Diagnoses Diagnosis Chronic pain in right shoulder Pain in joint, shoulder region Encounter for long-term use of opiate analgesic Encounter for long-term (current) use of other medications Pain management Other specified rehabilitation procedure documented in this encounter Care Teams Car Repairer Helper Relationship Specialty Start Date End Date Brandy Gilman APRN PCP - General 01/24/14 04/23/15 documented as of this encounter
--- OUTSIDE RECORDS SUMMARY | 2024-02-07 14:46 | XMS_ITS | Encounter Summary ---
Author Organization [facility] Address [address] [place] [address] Care Team Providers Care Horse Racer Name Role Phone Unknown, Provider Primary Care Provider Unava ilable Encounter Details Date Type Department Care Team (Late st Contact Info) Description 02/09/2001 Results Only [facility] conversion [address] [place] [address] Pedrito Caceres MD [address] [place] [address] Social History Tobacco Use Types Packs/Day Years [...] ? NASRIN HANEY ? Accession #: ? [id number] ? : ? 1985 (Age: 15) ??F [...] tip is submitted as (A1) and a international sales representative middle section and proximal resection margin are submitted as (A2). ??(Ivy Morgan)/aide End of Report [facility] 02/09/2001 02/09/2001 15: 39 EST Pedrito Caceres MD PATHOLOGY ORDERABLE S Performing Organization Address City/State/[facility] Co de Phone Number [facility] [address] [place] [address] documented in this encounter Visit Diagnoses Not on filedocumented in this encounter Care Teams Horse Racer Relationship Specialty Start Date End Date Unknown, Provider, PCP - General 04/04/09 12/21/19 documented as of this encounter
--- OUTSIDE RECORDS SUMMARY | 2024-02-07 14:46 | XMS_ITS | Encounter Summary ---
Author Organization [facility] Address [address] [place] [address] Care Team Providers Care Plant Controls Specialist Name Role Phone Unavailable Primary Care Provider Unavailabl e Encounter Details Date Type Department Care Team (Late st Contact Info) Description 05/04/2008 Before PRISM Converted Visit (Maple) [facility] conversion [address] [place] [address] Rosaura Carrera MD [address] [place] [address] [place] [address] Social History Tobacco Use Types Packs/Day Years [...] YOUNG, NASRIN A ? Accession #: ? [id number] ? : ? 1985 (Age: 23) ??F [...] MD PATHOLOGY ORDERABLES [facility] [address] [place] [address] documented in this encounter Visit Diagnoses Not on filedocumented in this encounter
--- OUTSIDE RECORDS SUMMARY | 2024-02-07 14:46 | XMS_ITS | Encounter Summary ---
Author Organization [facility] Address [address] [place] [address] Care Team Providers Care Home Planning Consultant Salesperson Name Role Phone Unknown, Provider Primary Care Provider Unava ilable Encounter Details Date Type Department Care Team (Late st Contact Info) Description 12/16/2002 Results Only [facility] - Maple conversion [address] [place] [address] Shadia Barrow [address] [place], [place] [address] Social History Tobacco Use Types Packs/Day Years [...] 68. [facility] Report Status Final [id number] [facility] 12/16/2002 15:0 0 EDT 12/22/2002 11:48 EDT Guy Chavez MD MICROBIOLOGY - GENER AL ORDERABLES [facility] [address] [place] [address] * CYTOPATHOLOGY (12/16/2002 0:00 EDT) Pathology Report: CYTOPATHOLOGY REPORT Reports generated via electronic interface contain original data; however they are lacking the format of the original report. Caution should be taken when reading/interpreti ng unformatted reports. Name: ? NASRIN HANEY ? Accession #: ? [id number] : ? 1985 (Age: 17) ??F ?Collect Date: ? 12/16/2002 Location: ? [facility] ? Receive Date: ? 12/20/2002 Provider: ?SESARRosa HAGANCAITLIN CN Copy to: ? Specimen/Source: ?ThinPrep Pap [...] Date: ??12/22/2002 10:34 End of Report [facility] 12/16/2002 12/20/2002 Shadia Barrow CNM PATHOLOGY ORDERABLES Performing Organization Address City/State/[facility] Co de Phone Number [facility] [address] [place] [address] documented in this encounter Visit Diagnoses Not on filedocumented in this encounter Care Teams Home Planning Consultant Salesperson Relationship Specialty Start Date End Date Unknown, Provider, PCP - General 04/04/09 12/21/19 documented as of this encounter
--- OUTSIDE RECORDS SUMMARY | 2024-02-07 14:46 | XMS_ITS | Encounter Summary ---
Author Organization [facility]ly [facility] [place] [address] Care Team Providers Care Dental Lab Technician Name Role Phone Brandy Gilman APRN Primary Care Provider +1- [phone] Encounter Details Date Type Department Care Team (Late st Contact Info) Description 09/08/2014 Telephone [place] [id number] Neva Harvey, RN Social History Tobacco Use [...] drop my prescription off at the pharmacy [facility] in [place] and the pharmacist said I need to have Michelle posey or Monica Osorio call to verify that I was authorized to take extra of my pain medication last month so I can cherry picker operator my prescription on Friday Nurse advises she will forward thi message to Michelle Posey for review. Patient verbalizes understanding and agrees with the plan Patient states The Pharmacy is [facility] [phone]. documented in this encounter Plan of Treatment Not on file documented as of this encounter Visit Diagnoses Not on filedocumented in this encounter Care Teams Dental Lab Technician Relationship Specialty Start Date End Date Brandy Gilman APRN PCP - General 01/24/14 04/23/15 documented as of this encounter
--- OUTSIDE RECORDS SUMMARY | 2024-02-07 14:46 | XMS_ITS | Encounter Summary ---
Author Organization [facility] [address] [facility] [place] [address] Care Team Providers Care Billing Associate Name Role Phone Brandy Kwok Kirk GUILLEN Primary Care Provider +1- [phone] Reason for Visit * Reason Comments Pain Management Right Shoulder Pain Neck Pain Encounter Details Date Type Department Care Team (Late st Contact Info) Description 03/21/2015 8:45 AM EST Office [place] [address] Rashida Duque AEROSPACE PROJECT ENGINEER [facility] [place] [address] Chronic pain in right shoulder; Pain management [...] PROVIDER Brandy Kwok APRN OPAL [address] [place] [address] PRIMARY CARE PROVIDER BRANDY KWOK APRN Opioid agreement signed date: 01/18/14 Most recent UDT results and date: 02/21/15 inconsistent with [facility] Prescription Monitoring Program was checked and no [...] MRI and plan Plans to go to [facility] HPI PAIN ASSESSMENT:: Description Right shoulder pain [...] ??? 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 Appearance/ Behavior Anxious appearing, seen with stock driver, clear speech Lungs Unlabored breathing Skin [...] to her satisfaction. Rashida Duque DNP, ANP-CS, AEROSPACE PROJECT ENGINEER Nurse Practitioner [facility] documented in this encounter Plan of Treatment Not on file documented as of this encounter Visit Diagnoses Diagnosis Chronic pain in right shoulder Pain in joint, shoulder region Pain management Other specified rehabilitation procedure documented in this encounter Care Teams Billing Associate Relationship Specialty Start Date End Date Brandy Kwok APRN PCP - General 01/24/14 04/23/15 documented as of this encounter
--- OUTSIDE RECORDS SUMMARY | 2024-02-07 14:46 | XMS_ITS | Encounter Summary ---
[place] [address] Care Team Providers Care Dress Draper Name Role Phone Brandy Gilman APRN Primary Care Provider +1- [phone] Encounter Details Date Type Department Care Team (Late st Contact Info) Description 01/25/2015 Orders [place] [address] Manjula Willis RN Social History Tobacco Use [...] on filedocumented in this encounter Care Teams Dress Draper Relationship Specialty Start Date End Date Brandy Gilman APRN PCP - General 01/24/14 04/23/15 documented as of this encounter
--- OUTSIDE RECORDS SUMMARY | 2024-02-07 14:46 | XMS_ITS | Encounter Summary ---
Author Organization [facility]ly [facility] [place] [address] Care Team Providers Care Video Effects Editor Name Role Phone Brandy Gilman APRN Primary Care Provider +1- [phone] Encounter Details Date Type Department Care Team (Late st Contact Info) Description 02/28/2015 Notes [place] [address] Malik Bridges [facility] [address] [facility] [place] [id number] Social History Tobacco Use Types Packs/Day Years [...] on filedocumented in this encounter Care Teams Video Effects Editor Relationship Specialty Start Date End Date Brandy Gilman APRN PCP - General 01/24/14 04/23/15 documented as of this encounter
--- OUTSIDE RECORDS SUMMARY | 2024-02-07 14:46 | XMS_ITS | Encounter Summary ---
Author Organization [facility] Address [address] [place] [address] Care Team Providers Care Prosthodontist/Owner Name Role Phone Unknown, Provider Primary Care Provider Unava ilable Encounter Details Date Type Department Care Team (Late st Contact Info) Description 02/28/[address] [facility] - Maple conversion [address] [place] [address] Raman Maynard, MARIA GUADALUPE [address] [place] [address] Social History Tobacco Use Types [...] ? NASRIN HANEY ? Accession #: ? [id number] : ? 1985 (Age: 18) ??F ?Collect Date: ? 02/28/2004 Location: ? [facility] ? Receive Date: ? 03/02/2004 Provider: ?RAMAN MAYNARD CASH APPLICATIONS SPECIALIST Copy to: ? Specimen/Source: ?ThinPrep Pap Test, [...] Date: ??03/09/2004 10:15 End of Report [facility] 02/28/2004 03/02/2004 Raman Maynard NP PATHOLOGY ORDERABLES [facility] [address] [place] [address] documented in this encounter Visit Diagnoses Not on filedocumented in this encounter Care Teams Prosthodontist/Owner Relationship Specialty Start Date End Date Unknown, Provider, PCP - General 04/04/09 12/21/19 documented as of this encounter
--- OUTSIDE RECORDS SUMMARY | 2024-02-07 14:46 | XMS_ITS | Encounter Summary ---
Author Organization [facility] [place] [address] Care Team Providers Care Pediatric Assistant Name Role Phone Brandy Kwok Mony GUILLEN Primary Care Provider +1- [phone] Reason for Visit * Reason Comments Shoulder Pain Right Encounter Details Date Type Department Care Team (Late st Contact Info) Description 11/29/2014 10:45 AM EDT Follow-Up [place] [address] Monica Osorio FILTER PRESS OPERATOR [facility] [place] [address] Chronic pain in right shoulder Discharge Disposition: [...] AM EDT PAIN CLINIC FOLLOW-UP Nasrin Haney [id number] Reason for follow-up: Medical managment Chief Complaint: [...] Dr Cassidy but case left open The [place] Prescription Monitoring Program was checked and no [...] region documented in this encounter Care Teams Pediatric Assistant Relationship Specialty Start Date End Date Brandy Kwok APRN PCP - General 01/24/14 04/23/15 documented as of this encounter
--- OUTSIDE RECORDS SUMMARY | 2024-02-07 14:46 | XMS_ITS | Encounter Summary ---
Author Organization [facility] [place] [address] Care Team Providers Care Programming Equipment Operator Name Role Phone Brandy Gilman WILMER Primary Care Provider +1- [phone] Encounter Details Date Type Department Care Team (Late st Contact Info) Description 05/20/2014 Telephone [place] [address] Monica Osorio APRN [facility] [place] [address] Social History Tobacco Use Types Packs/Day Years [...] a call from Dr Hearn office in [place]. Speaking with their PA, it seem they have offered Ms Haney surgery and we have decided that Dr Cassidy will cover her pain medications in the immediatepost op period and we will resume coverage if needed. documented in this encounter Plan of Treatment Not on file documented as of this encounter Visit Diagnoses Not on filedocumented in this encounter Care Teams Programming Equipment Operator Relationship Specialty Start Date End Date Brandy Gilman APRN PCP - General 01/24/14 04/23/15 documented as of this encounter
--- OUTSIDE RECORDS SUMMARY | 2024-02-07 14:46 | XMS_ITS | Encounter Summary ---
Author Organization Formerly [facility] [place] [address] Care Team Providers Care Air Pumper Name Role Phone Mukul Brandy Sykes APRN Primary Care Provider +1- [phone] Encounter Details Date Type Department Care Team (Late st Contact Info) Description 09/08/2014 Notes Only [place] [address] Michelle Posey APRN [facility] [place] [address] Social History Tobacco Use Types Packs/Day Years Used Date Smoking Tobacco: Every Day Cigarettes 0.5 15 Smokeless Tobacco: Never Sex and Gender Information Value Date Recorded Sex Assigned at Not on file Gender Identity Not on file Sexual Orientation Not on file documented as of this encounter Progress Notes * Michelle Posey APRN - 09/08/2014 12:18 PM EDT Call to [place] pharmacy to advise that patient had been authorized last week that she could take additional medications and refill would therefore be due earlier. Spoke with pharmacist who documented this. documented in this encounter Plan of Treatment Not on file documented as of this encounter Visit Diagnoses Not on filedocumented in this encounter Care Teams Air Pumper Relationship Specialty Start Date End Date Brandy Gilman APRN PCP - General 01/24/14 04/23/15 documented as of this encounter
--- OUTSIDE RECORDS SUMMARY | 2024-02-07 14:46 | XMS_ITS | Encounter Summary ---
Author Organization [facility] [place] [address] Care Team Providers Care Pastry Supervisor Name Role Phone Brandy Kwok WILMER Primary Care Provider +1- [phone] Reason for Visit * Reason Comments Right Shoulder Pain Encounter Details Date Type Department Care Team (Late st Contact Info) Description 10/06/2014 7:45 AM EDT [place] [address] Monica Osorio FRONT END ASSISTANT [facility] [place] [address] Chronic pain in right shoulder Discharge Disposition: [...] Progress Notes * Monica Osorio, WILMER - 10/06/2014 8:08 AM EDT PAIN CLINIC FOLLOW-UP Nasrin Haney [id number] Reason for follow-up: Medical managment Chief Complaint: [...] one arm) Recent treatments: PT [facility] [place] Prescription [...] region documented in this encounter Care Teams Pastry Supervisor Relationship Specialty Start Date End Date Brandy Kwok APRN PCP - General 01/24/14 04/23/15 documented as of this encounter
--- OUTSIDE RECORDS SUMMARY | 2024-02-07 14:46 | XMS_ITS | Encounter Summary ---
Author Organization Formerly [place] [address] Care Team Providers Care Director Franchise Sales Name Role Phone Brandy Gilman WILMER Primary Care Provider +1- [phone] Encounter Details Date Type Department Care Team (Late st Contact Info) Description 08/24/2014 Telephone [place] [address] Michelle Posey STOCK DRIER TENDER [facility] [place] [address] Social History Tobacco Use Types Packs/Day Years [...] pain medications would have be done with [facility] pain [facility]. Nasrin then called our office [...] on filedocumented in this encounter Care Teams Director Franchise Sales Relationship Specialty Start Date End Date Brandy Gilman APRN PCP - General 01/24/14 04/23/15 documented as of this encounter
--- OUTSIDE RECORDS SUMMARY | 2024-02-07 14:46 | XMS_ITS | Encounter Summary ---
Author Organization [facility] Address [address] [place] [address] Care Team Providers Care National Account Representative Name Role Phone Unknown, Provider Primary Care Provider Unava ilable Encounter Details Date Type Department Care Team (Late st Contact Info) Description 12/18/2001 Results Only [facility] - Maple conversion [address] [place] [address] Raman Maynard, MARIA GUADALUPE [address] [place] [address] Social History Tobacco Use Types [...] ? NASRIN HANEY ? Accession #: ? [id number] : ? 1985 (Age: 16) ??F ?Collect Date: ? 12/18/2001 Location: ? [facility] ? Receive Date: ? 12/22/2001 Provider: ?RAMAN MAYNARD PRIOR AUTHORIZATION NURSE Copy to: ? Specimen/Source: ?ThinPrep Pap Test, [...] Date: ??12/23/2001 12:55 End of Report [facility] 12/18/2001 12/22/2001 Raman Maynard NP PATHOLOGY ORDERABLES [facility] [address] [place] [address] documented in this encounter Visit Diagnoses Not on filedocumented in this encounter Care Teams National Account Representative Relationship Specialty Start Date End Date Unknown, Provider, PCP - General 04/04/09 12/21/19 documented as of this encounter
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
--- OUTSIDE RECORDS SUMMARY | 2024-02-07 14:46 | XMS_ITS | Encounter Summary ---
Author Organization [facility] Address [address] [place] [address] Care Team Providers Care Draw Press Operator Name Role Phone Unknown, Provider Primary Care Provider Unava ilable Encounter Details Date Type Department Care Team (Late st Contact Info) Description 12/19/2002 Results Only [facility] - Maple conversion [address] [place] [address] Guy Gomez MD [address] [place] [address] [address] Social History Tobacco Use Types Packs/Day Years [...] ? NASRIN HANEY ? Accession #: ? [id number] ? : ? 1985 (Age: 17) ??F [...] Gomez MD PATHOLOGY ORDERABLES Performing Organization Address City/State/[facility] Co de Phone Number [facility] [address] [place] [address] documented in this encounter Visit Diagnoses Not on filedocumented in this encounter Care Teams Draw Press Operator Relationship Specialty Start Date End Date Unknown, Provider, PCP - General 04/04/09 12/21/19 documented as of this encounter
--- OUTSIDE RECORDS SUMMARY | 2024-02-07 14:46 | XMS_ITS | Encounter Summary ---
[place] [address] Care Team Providers Care Knuckle Bender Name Role Phone Brandy Gilman APRN Primary Care Provider +1- [phone] Encounter Details Date Type Department Care Team (Late st Contact Info) Description 11/30/2014 Telephone [place] [address] Neva Harvey, RN Social History Tobacco Use [...] pharmacy had called yesterday to let [facility] know that per her insurance patient was [...] on filedocumented in this encounter Care Teams Knuckle Bender Relationship Specialty Start Date End Date Brandy Gilman APRN PCP - General 01/24/14 04/23/15 documented as of this encounter
--- OUTSIDE RECORDS SUMMARY | 2024-02-07 14:46 | XMS_ITS | Encounter Summary ---
Author Organization [facility] [place] [address] Care Team Providers Care Para Professional Name Role Phone Brandy Gilman APRN Primary Care Provider +1- [phone] Encounter Details Date Type Department Care Team (Late st Contact Info) Description 08/24/2014 Notes [place] [address] Michelle Posey APRN [facility] [place] [address] Social History Tobacco Use Types Packs/Day Years [...] on filedocumented in this encounter Care Teams Para Professional Relationship Specialty Start Date End Date Brandy Gilman APRN PCP - General 01/24/14 04/23/15 documented as of this encounter
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
--- OUTSIDE RECORDS SUMMARY | 2024-02-07 14:46 | XMS_ITS | Encounter Summary ---
Author Organization [facility] [place] [address] Care Team Providers Care Second Butler Name Role Phone Brandy Kwok WILMER Primary Care Provider +1- [phone] Reason for Visit * Reason Comments Pain Management Right Shoulder Pain Encounter Details Date Type Department Care Team (Late st Contact Info) Description 03/18/2014 2:30 PM EST Follow-[place] [address] Monica Osorio ROBOTICS TECHNICIAN [facility] [place] [address] Chronic pain in right shoulder Discharge Disposition: [...] PM EST PAIN CLINIC FOLLOW-UP Nasrin Haney [id number] Reason for follow-up: Medical managment Chief Complaint: [...] in day care Recent treatments: none The [place] Prescription Monitoring Program was checked and no [...] region documented in this encounter Care Teams Second Butler Relationship Specialty Start Date End Date Brandy Kwok APRN PCP - General 01/24/14 04/23/15 documented as of this encounter
--- OUTSIDE RECORDS SUMMARY | 2024-02-07 14:46 | XMS_ITS | Encounter Summary ---
[place] [address] Care Team Providers Care Nanoscience Technician Name Role Phone Brandy Gilman APRN Primary Care Provider +1- [phone] Reason for Visit * Reason Onset Date Comments Medication Refill 10/06/2014 Encounter Details Date Type Department Care Team (Late st Contact Info) Description 10/06/2014 Refill [place] [address] Agnes Wilder LPN Chronic pain in right [...] day supply. Confirmed with Ezequiel Garcia @ [facility], only 28 tablets of Oxycodone were filled. Pt will need an additional Rx for remaining 28 tablets. Pt requests Rx be mailed to [facility] in [place], [place] documented in this encounter Plan of Treatment Not on file documented as of this encounter Visit Diagnoses Diagnosis Chronic pain in right shoulder Pain in joint, shoulder region documented in this encounter Care Teams Nanoscience Technician Relationship Specialty Start Date End Date Brandy Gilman APRN PCP - General 01/24/14 04/23/15 documented as of this encounter
--- OUTSIDE RECORDS SUMMARY | 2024-02-07 14:46 | XMS_ITS | Clinical Summary ---
Author Organization [facility] Address [facility] [place] [address] Care Team Providers Care Transformation Coach Name Role Phone Bee Levine APRN Primary Care Provider +1- [phone] Allergies Active Allergy Reactions Criticality Noted Date [...] Name Administration Dates Next Due Influenza (Novel L3G3-26) Injectable 02/15/2009 Influenza Vaccine, Whole 02/02/2009 Social [...] Hepatitis B vaccine (0-59 yrs) (1) 2002 Tetanus/Diphtheria/Pertussis Vaccines (1 - Tdap) 2002 HPV test 2013 PAP Smear 2013 Breast Cancer Share Decision Needed 2023 Breast Cancer screening 2023 Covid-19 Vaccine (1 - season) 2023 Influenza (Flu) vaccine (1 o f 1 - Influenza standard series) 12/07/2023 02/15/2009, 02/02/2009 Care Teams Transformation Coach Relationship Specialty Start Date End Date Bee Levine, DRUG SAFETY SCIENTIST PCP - General Family Medicine 04/24/15
--- OUTSIDE RECORDS SUMMARY | 2024-02-07 14:46 | XMS_ITS | Encounter Summary ---
Author Organization [facility] [place] [address] Care Team Providers Care Solution Lead Name Role Phone Bee Levine APRN Primary Care Provider +1 [phone] Encounter Details Date Type Department Care Team (Late st Contact Info) Description 09/23/2006 Orders [place] [address] El Flores MD [facility] [place] [address] Social History Tobacco Use Types Packs/Day Years [...] 4:05 PM EDT) Surgical Pathology Report [id number] ? Location: The signing pathologist has (i) [...] on filedocumented in this encounter Care Teams Solution Lead Relationship Specialty Start Date End Date Bee Levine, MILK AND CREAM GRADER PCP - General Family Medicine 04/24/15 documented as of this encounter
--- OUTSIDE RECORDS SUMMARY | 2024-02-07 14:46 | XMS_ITS | Encounter Summary ---
Author Organization [facility] Address [address] [place] [address] Care Team Providers Care Head Of Digital Name Role Phone Unavailable Primary Care Provider Unavailabl e Encounter Details Date Type Department Care Team (Late st Contact Info) Description 12/30/2001 18:23 EDT Hospital Encounter [facility] - Other [address] [place] [address] Anuja Lynch MD PhD [address] [place] [phone] Unknown, Provider, MD Discharge Disposition: Auto Discharge Social History Tobacco [...] ? NASRIN HANEY ? Accession #: ? [id number] ? : ? 1985 (Age: 24) ??F [...] length by 1.0 cm in diameter. ??The Sterlington's jelly is an opaque white. ??There are [...] ? white areas on the maternal surface. ??Laundromat Worker sections are submitted as ?? follows: ? BLOCK WATERMAN ? A1 ?Umbilical cord and yolk sac remnants ? A2 ? membranes ? A3, A4 ?Placental disc ? (Dr. Le)/mpl ? End of Report ? [facility] 03/28/2009 03/29/2009 14: 20 EST Rashida Monterroso CNM PATHOLOGY ORDERABLES Performing Organization Address City/State/[facility] Co de Phone Number [facility] [address] [place] [address] documented in this encounter Visit Diagnoses Not on filedocumented in this encounter
--- OUTSIDE RECORDS SUMMARY | 2024-02-07 14:46 | XMS_ITS | Encounter Summary ---
Author Organization [facility] [place] [address] Care Team Providers Care At[employer]T Retailer Sales Consultant Name Role Phone Brandy Kwok WILMER Primary Care Provider +1- [phone] Reason for Visit * Reason Comments Pain Management Encounter Details Date Type Department Care Team (Late st Contact Info) Description 11/01/2014 9:15 AM EDT [place] [address] Monica Osorio FRANCHISE MANAGER [facility] [place] [address] Chronic pain in right shoulder; Encounter for [...] AM EDT PAIN CLINIC FOLLOW-UP Nasrin Haney [id number] Reason for follow-up: Medical managment Chief Complaint: [...] has one arm) Recent treatments: PT The [place] Prescription Monitoring Program was checked and no [...] employment-relat ed drug testing. Test Performed by: [facility] [address] [address] Foam Dispenser: Mela Young, Ph.D. RED [facility] Urine specimen [...] ??Morphine ? Negative ? ng/mL ??<100 ??Oxycodone ?53074 ?ng/mL ??<100 ??Oxymorphone ?41933 ?ng/mL ??<100 --ADDITIONAL INFORMATION------ This report is intended for use in clinical monitoring and management of patients. It is not intended for use in employment-relate d drug testing. Test Performed by: [facility] [address] [place] [address] Foam Dispenser: Mela Young, Ph.D. [facility] Urine specimen (specimen) 11/01/2014 9:45 AM EDT 11/01/2014 10:35 AM EDT Narrative Resulting Agency Comment Spec In Lab Ruddy Mcpherson V, URINE ORDERABLES Performing Organization Address City/State/ZIP Co pr Phone Number [facility] documented in this encounter Visit Diagnoses Diagnosis Chronic pain in right shoulder Pain in joint, shoulder region Encounter for long-term (current) use of other medications documented in this encounter Care Teams At[employer]T Retailer Sales Consultant Relationship Specialty Start Date End Date Brandy Kwok APRN PCP - General 01/24/14 04/23/15 documented as of this encounter
--- OUTSIDE RECORDS SUMMARY | 2024-02-07 14:46 | XMS_ITS | Encounter Summary ---
Author Organization [facility] Address [address] [place] [address] Care Team Providers Care Compliance Program Manager Name Role Phone Unknown, Provider Primary Care Provider Unava ilable Encounter Details Date Type Department Care Team (Late st Contact Info) Description 06/26/2001 Results Only [facility] - Maple conversion [address] [place] [address] Raman Maynard, MARIA GUADALUPE [address] [place] [address] Social History Tobacco Use Types [...] ? NASRIN HANEY ? Accession #: ? [id number] : ? 1985 (Age: 16) ??F ?Collect Date: ? 06/26/2001 Location: ? [facility] ? Receive Date: ? 06/30/2001 Provider: ?RAMAN MAYNARD BEREAVEMENT COORDINATOR Copy to: ? Specimen/Source: ?ThinPrep Pap Test, [...] electronically signed by: ? JÚNIOR VALERIO MD [facility] ? Report Date: ??07/07/2001 15:22 End of Report [facility] 06/26/2001 06/30/2001 Raman Maynard NP PATHOLOGY ORDERABLES [facility] [address] [place] [address] documented in this encounter Visit Diagnoses Not on filedocumented in this encounter Care Teams Compliance Program Manager Relationship Specialty Start Date End Date Unknown, Provider, PCP - General 04/04/09 12/21/19 documented as of this encounter
--- OUTSIDE RECORDS SUMMARY | 2024-02-07 14:46 | XMS_ITS | Encounter Summary ---
Author Organization [facility] [place] [address] Care Team Providers Care Pharmacy Informaticist Name Role Phone Brandy Gilman APRN Primary Care Provider +1- [phone] Reason for Visit * Reason Comments Right Shoulder Pain Encounter Details Date Type Department Care Team (Latest Contact Info) Description 03/22/2014 12:15 PM EST Procedure [place] [address] Ruddy Mcpherson V [facility] [place] [id number] Muscle pain Discharge Disposition: Home Social History [...] this entire procedure. Ruddy Mcpherson DO, MPH [facility]subspecialty board certification in Pain Medicine Attending Physician - Pain Management CC: Shayna Trammell, WILMER OPAL [address] [facility] [place] [address] documented in this encounter Plan of Treatment [...] Physician - Pain Management CC: Shayna Trammell, SPECTROSCOPIST OPAL [address] [place] [address] Ruddy Melendez DO NEUROLOGY ORDERABLES documented in [...] mg documented in this encounter Care Teams Pharmacy Informaticist Relationship Specialty Start Date End Date Brandy Gilman APRN PCP - General 01/24/14 04/23/15 documented as of this encounter
--- OUTSIDE RECORDS SUMMARY | 2024-02-07 14:46 | XMS_ITS | Encounter Summary ---
Author Organization [facility] [place] [address] Care Team Providers Care Assessment Clinician Name Role Phone Brandy Kwok WILMER Primary Care Provider +1- [phone] Reason for Visit * Reason Comments Pain Management Right Shoulder Pain Encounter Details Date Type Department Care Team (Late st Contact Info) Description 09/08/2014 7:45 AM EDT Follow-[place] [address] Monica Osorio FINANCIAL AID [facility] [place] [address] Chronic pain in right shoulder Discharge Disposition: [...] AM EDT PAIN CLINIC FOLLOW-UP Nasrin Haney [id number] Reason for follow-up: Medical managment Chief Complaint: [...] self and home Recent treatments: PT The [place] Prescription Monitoring Program was [...] region documented in this encounter Care Teams Assessment Clinician Relationship Specialty Start Date End Date Brandy Kwok APRN PCP - General 01/24/14 04/23/15 documented as of this encounter
--- OUTSIDE RECORDS SUMMARY | 2024-02-07 14:46 | XMS_ITS | Encounter Summary ---
[place] [address] Care Team Providers Care Sheep Farm Manager Name Role Phone Brandy Gilman APRN Primary Care Provider +1- [phone] Encounter Details Date Type Department Care Team (Late st Contact Info) Description 11/29/2014 [place] [phone] Akosua Santana, RN Social History Tobacco Use [...] on filedocumented in this encounter Care Teams Sheep Farm Manager Relationship Specialty Start Date End Date Brandy Gilman APRN PCP - General 01/24/14 04/23/15 documented as of this encounter
--- OUTSIDE RECORDS SUMMARY | 2024-02-07 14:46 | XMS_ITS | Encounter Summary ---
Author Organization [facility] [place] [address] Care Team Providers Care Service Desk Director Name Role Phone Brandy Gilman APRN Primary Care Provider +1- [phone] Reason for Visit * Reason Onset Date Comments Medication Refill 11/30/2014 Encounter Details Date Type Department Care Team (Late st Contact Info) Description 11/30/2014 [place] [address] Neva Harvey, RN Social History Tobacco Use [...] on filedocumented in this encounter Care Teams Service Desk Director Relationship Specialty Start Date End Date Brandy Gilman APRN PCP - General 01/24/14 04/23/15 documented as of this encounter
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
--- OUTSIDE RECORDS SUMMARY | 2024-02-07 14:46 | XMS_ITS | Encounter Summary ---
[place] [address] Care Team Providers Care Supervising Librarian Name Role Phone Brandy Gilman APRN Primary Care Provider +1- [phone] Encounter Details Date Type Department Care Team (Late st Contact Info) Description 04/18/2014 Telephone [place] [address] Agnes Wilder LPN Social History Tobacco Use [...] on filedocumented in this encounter Care Teams Supervising Librarian Relationship Specialty Start Date End Date Brandy Gilman APRN PCP - General 01/24/14 04/23/15 documented as of this encounter
--- OUTSIDE RECORDS SUMMARY | 2024-02-07 14:46 | XMS_ITS | Encounter Summary ---
Author Organization [facility] [place] [address] Care Team Providers Care Delta System Freight Car Cleaner Name Role Phone Brandy Gilman WILMER Primary Care Provider +1- [phone] Reason for Visit * Reason Comments Pain Management Right Shoulder Pain Encounter Details Date Type Department Care Team (Late st Contact Info) Description 08/19/2014 9:45 AM EDT Follow-[place] [address] Michelle Posey CASINO MANAGER [facility] [place] [place] [address] Chronic pain in right shoulder; Pain management; [...] March and under the care of from [place] had a biceps repair 1 month ago. She has previously been cared for the in [facility], last seen by Monica Osorio [...] work order until 11/05/14. 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 Currently doing [employer] for finances right now. Alcohol: Denies Tobacco: Smoking cigarettes about 1/2 PPD. She is not currently interested in quitting. Has quit before when she was with her son. The [facility] Prescription Monitoring Program was checked and [...] weeks for med fill Michelle Posey MS, CASINO MANAGER [facility] [phone] documented in this encounter Plan of Treatment Not on file documented as of this encounter Visit Diagnoses Diagnosis Chronic pain in right shoulder Pain in joint, shoulder region Pain management Other specified rehabilitation procedure Encounter for long-term (current) use of other medications documented in this encounter Care Teams Delta System Freight Car Cleaner Relationship Specialty Start Date End Date Brandy Gilman APRN PCP - General 01/24/14 04/23/15 documented as of this encounter
--- OUTSIDE RECORDS SUMMARY | 2024-02-07 14:46 | XMS_ITS | Encounter Summary ---
Author Organization [facility] Address [address] [place] [address] Care Team Providers Care Load Tester Name Role Phone Unknown, Provider Primary Care Provider Unava ilable Encounter Details Date Type Department Care Team (Late st Contact Info) Description 02/28/2003 Results Only [facility] - Maple conversion [address] [place] [address] Raman Maynard, MARIA GUADALUPE [address] [place] [address] Social History Tobacco Use Types [...] 68. [facility] Report Status Final [id number] [facility] 02/28/2003 14:2 6 EST 03/09/2003 14:26 EST Raman Maynard NP MICROBIOLOGY - GENER AL ORDERABLES [facility] [address] [place] [address] * CYTOPATHOLOGY (02/28/2003 0:00 EST) Pathology Report: CYTOPATHOLOGY REPORT Reports generated via electronic interface contain original data; however they are lacking the format of the original report. Caution should be taken when reading/interpreti ng unformatted reports. Name: ? NASRIN HANEY ? Accession #: ? [id number] : ? 1985 (Age: 17) ??F ?Collect [...] reviewed and electronically signed by: ? DEMETRIA Dawn(ASCP) ? Report Date: ??03/09/2003 10:04 End of Report [facility] 02/28/2003 03/04/2003 Raman Maynard CAMERA MECHANIC PATHOLOGY ORDERABLES Performing Organization Address City/State/[facility] Co de Phone Number [facility] [address] [place] [address] documented in this encounter Visit Diagnoses Not on filedocumented in this encounter Care Teams Load Tester Relationship Specialty Start Date End Date Unknown, Provider, PCP - General 04/04/09 12/21/19 documented as of this encounter
--- OUTSIDE RECORDS SUMMARY | 2024-02-07 14:46 | XMS_ITS | Encounter Summary ---
Author Organization [facility] Address [address] [place] [address] Care Team Providers Care Environmental Health Specialist Name Role Phone Unknown, Provider Primary Care Provider Unava ilable Encounter Details Date Type Department Care Team (Late st Contact Info) Description 04/22/[address] [facility] - Maple conversion [address] [place] [address] Brandy Kwok, MARIA GUADALUPE [address] [place] [address] Social History Tobacco Use Types Packs/Day [...] ? NASRIN HANEY ? Accession #: ? [id number] : ? 1985 (Age: 22) ??F ?Collect Date: ? 04/22/2007 Location: ? [facility] ? Receive Date: ? 04/23/2007 Provider: ?BRANDY KWOK PHARMACY TECHNICIAN INFUSION Copy to: ? Specimen/Source: ?ThinPrep Pap Test, Cervix/Endocervix, processed on [employer] ThinPrep Imaging System, with manual evaluation Last [...] End of Report [facility] 04/22/2007 04/23/2007 Brandy Kwok PHARMACY TECHNICIAN INFUSION PATHOLOGY ORDERABLES [facility] [address] [place] [address] documented in this encounter Visit Diagnoses Not on filedocumented in this encounter Care Teams Environmental Health Specialist Relationship Specialty Start Date End Date Unknown, Provider, PCP - General 04/04/09 12/21/19 documented as of this encounter
--- OUTSIDE RECORDS SUMMARY | 2024-02-07 14:46 | XMS_ITS | Encounter Summary ---
Author Organization [facility] [place] [address] Care Team Providers Care Boiler Shop Mechanic Name Role Phone Brandy Gilman APRN Primary Care Provider +1- [phone] Encounter Details Date Type Department Care Team (Late st Contact Info) Description 04/18/2014 Telephone [place] [address] Boston Henderson DO [facility] [place] [address] Social History Tobacco Use Types Packs/Day Years [...] completion by the Pain Management Center providers. [facility] is not dictating her [...] filedocumented in this encounter Care Teams Boiler Shop Mechanic Relationship Specialty Start Date End Date Brandy Gilman APRN PCP - General 01/24/14 04/23/15 documented as of this encounter
--- OUTSIDE RECORDS SUMMARY | 2024-02-07 14:46 | XMS_ITS | Encounter Summary ---
Author Organization [facility] Address [facility] [place] [address] Care Team Providers Care Coach Cleaner Name Role Phone Bee Levine APRN Primary Care Provider +1 [phone] Encounter Details Date Type Department Care Team (Late st Contact Info) Description 12/29/2006 [place] [address] Ruddy Wang MD [facility] [place] [address] Social History Tobacco Use Types Packs/Day Years [...] 5:36 PM EDT) Surgical Pathology Report [id number] ? Location: [facility]; [facility]; A The signing pathologist has (i) examined [...] MD PATHOLOGY/CYTOLOGY O SHARON Performing Organization Address City/State/[facility] Co de Phone Number [facility] documented in this encounter Visit Diagnoses Not on filedocumented in this encounter Care Teams Coach Cleaner Relationship Specialty Start Date End Date Bee Levine, AUTOMATIC BOW MAKER MACHINE TENDER PCP - General Family Medicine 04/24/15 documented as of this encounter
--- OUTSIDE RECORDS SUMMARY | 2024-02-07 14:46 | XMS_ITS | Encounter Summary ---
Author Organization [facility] Address [facility] [place] [address] Care Team Providers Care Equipment Services Associate Name Role Phone Shayna Trammell WILMER Primary Care Provider +1- [phone] Reason for Referral * Psychiatric (Routine) - Closed by system - Referral Specialty Diagnoses / Procedures Referred By Enedina malhotra Referred To Contact Psychiatry Diagnoses Encounter for long-term (current) use of other medications Monica Osorio, WILMER [facility] [address] Amelia Calabrese, PhD [facility] [place] [address] Referral ID Status Reason Start Date Expiration Date Visits Requested Visits Authorized [id number] Closed by system - Referral Specialty Service Requested 4 07/20/2014 1 1 Reason for Visit * Reason Comments Pain Management Right Shoulder Pain Encounter Details Date Type Department Care Team (Late st Contact Info) Description 01/21/2014 12:45 PM EDT Office [place] [address] Monica Osorio BUILDING CONSTRUCTION CONTRACTOR [facility] [place] [address] Chronic pain in right shoulder (Primary Dx); [...] this encounter Progress Notes * Monica Osorio, BUILDING CONSTRUCTION CONTRACTOR - 01/21/2014 2:02 PM EDT CHIEF COMPLAINT: [...] constitutional symptoms. 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 Smokes a half a pack a day. 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 She was unable [...] employment-relat ed drug testing. Test Performed by: [place] [address] Executive Assistant: Mela Esteban, Ph.D. [facility] Urine specimen (specimen) 01/21/2014 12:45 PM EDT 01/21/2014 3:06 PM EDT Narrative Resulting Agency Comment Spec In Lab Ruddy Mcpherson V, DO LAB SEND OUT ORDERAB LES [facility] * Drug Screen with Confirmation, Urine (01/21/2014 [...] employment-relate d drug testing. Test Performed by: [place] [address] Executive Assistant: Mela Esteban, Ph.D. [facility] Urine specimen (specimen) 01/21/2014 12:45 PM EDT 01/21/2014 3:06 PM EDT Narrative Resulting Agency Comment Spec In Lab Ruddy Melendez DO URINE ORDERABLES [facility] documented in this encounter Visit Diagnoses Diagnosis Chronic pain in right shoulder- Primary Pain in joint, shoulder region Encounter for long-term (current) use of other medications documented in this encounter Care Teams Equipment Services Associate Relationship Specialty Start Date End Date Shayna Trammell APRN [facility] [address] [place] [address] PCP - General 02/27/10 01/23/14 documented as of this encounter
--- OUTSIDE RECORDS SUMMARY | 2024-02-07 14:46 | XMS_ITS | Encounter Summary ---
Author Organization [facility] [place] [address] Care Team Providers Care Retirement Officer Name Role Phone Brandy Gilman WILMER Primary Care Provider +1- [phone] Reason for Visit * Reason Comments Right Shoulder Pain Encounter Details Date Type Department Care Team (Late st Contact Info) Description 12/27/2014 9:15 AM EDT [place] [address] Michelle Posey MEAT APPRENTICE [facility] [place] [address] Chronic pain in right shoulder; Pain management; [...] March and under the care of from [place] had full tendon repair in June 2014. She then re-injured her shoulder on 09/30/14. She has previously been cared for the in [facility], last seen by Monica Osorio [...] going to be transferring her care up [facility], so that she does not need to drive down here in the winter. She is going to be signing records release here with us today, and when they have her records will have an appointment scheduled there. 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 She has missed work the past month, themother she watches for has needed to get another child care associate teacher provider as Nasrin has been unable to [...] schedule an appointment with Dr. Goss in [facility] for her ongoing pain management as travel [...] weeks for med fill Michelle Posey MS, MEAT APPRENTICE Pain Management Clinic [facility] [phone] documented in this encounter Plan of Treatment Not on file documented as of this encounter Visit Diagnoses Diagnosis Chronic pain in right shoulder Pain in joint, shoulder region Pain management Other specified rehabilitation procedure Encounter for long-term (current) use of other medications documented in this encounter Care Teams Retirement Officer Relationship Specialty Start Date End Date Brandy Gilman APRN PCP - General 01/24/14 04/23/15 documented as of this encounter
--- OUTSIDE RECORDS SUMMARY | 2024-02-07 14:46 | XMS_ITS | Encounter Summary ---
Author Organization [facility] [place] [address] Care Team Providers Care Optical Design Engineer Name Role Phone Brandy Gilman WILMER Primary Care Provider +1- [phone] Reason for Visit * Reason Comments Right Shoulder Pain Encounter Details Date Type Department Care Team (Latest Contact Info) Description 09/21/2014 10:15 AM EDT Procedure [place] [address] Michelle Posey MANAGER OFFICE [facility] [place] [address] Myalgia and myositis, unspecified Discharge Disposition: Home [...] with Monica Osorio APRN. Michelle Posey APRN [facility] CC: Brandy Gilman APRN [address] [facility] [place] [address] documented in this encounter Plan of Treatment [...] with Monica Osorio APRN. Michelle Posey APRN [facility] CC: Brandy Gilamn APRN [address] [place] [address] Ruddy Melendez DO NEUROLOGY ORDERABLES documented in [...] mg documented in this encounter Care Teams Optical Design Engineer Relationship Specialty Start Date End Date Brandy Gilman APRN PCP - General 01/24/14 04/23/15 documented as of this encounter
--- OUTSIDE RECORDS SUMMARY | 2024-02-07 14:46 | XMS_ITS | Encounter Summary ---
Author Organization [facility] [place] [address] Care Team Providers Care Warehouse Receiver Name Role Phone Brandy Gilman APRN Primary Care Provider +1- [phone] Encounter Details Date Type Department Care Team (Late st Contact Info) Description 10/06/2014 Orders [place] [address] Monica Osorio APRN [facility] [place] [id number] Social History Tobacco Use Types Packs/Day Years [...] on filedocumented in this encounter Care Teams Warehouse Receiver Relationship Specialty Start Date End Date Brandy Gilman APRN PCP - General 01/24/14 04/23/15 documented as of this encounter
--- OUTSIDE RECORDS SUMMARY | 2024-02-07 14:46 | XMS_ITS | Encounter Summary ---
Author Organization [facility] [place] [address] Care Team Providers Care Rn Telemetry Name Role Phone Gilman, Brandycam Sykes APRN Primary Care Provider +1- [phone] Encounter Details Date Type Department Care Team (Late st Contact Info) Description 08/23/2014 Telephone [place] [phone] Cinda Kitchen LPN Social History Tobacco Use [...] and inflamed. She saw Aline at the [facility] in [place]. Return visit scheduled for September 06. Currently [...] Someone please call that would be great. [phone]. documented in this encounter Plan of Treatment Not on file documented as of this encounter Visit Diagnoses Not on filedocumented in this encounter Care Teams Rn Telemetry Relationship Specialty Start Date End Date Brandy Gilman APRN PCP - General 01/24/14 04/23/15 documented as of this encounter
--- OUTSIDE RECORDS SUMMARY | 2024-02-07 14:46 | XMS_ITS | Encounter Summary ---
[place] [address] Care Team Providers Care Coil Cleaner Name Role Phone Brandy Gilman APRN Primary Care Provider +1- [phone] Encounter Details Date Type Department Care Team (Late st Contact Info) Description 01/05/2015 Telephone [place] [id number] Neva Harvey RN Social History Tobacco Use [...] Management Center Preauthorization Request Patient: Nasrin Haney [id number] Fax received from [facility] requesting we obtain prior authorization for Ketamine Baclofen, Diclofenac, Gabapentin Lidocaine cream prescribed by Michelle Posey APRN. RX insurance plan: [place] Medicaid RX insurance telephone: Patient Diagnosis: Chronic pain right shoulder, Pain management [facility] use of medications Previous medications attempted: Ibuprofen, NSAIDS, Tramadol The following action was taken after discussion with the service order clerk: _X_ sent to clinical review, patient informed Neva Harvey RN documented in this encounter Plan of Treatment Not on file documented as of this encounter Visit Diagnoses Not on filedocumented in this encounter Care Teams Coil Cleaner Relationship Specialty Start Date End Date Brandy Gilman APRN PCP - General 01/24/14 04/23/15 documented as of this encounter
--- OUTSIDE RECORDS SUMMARY | 2024-02-07 14:46 | XMS_ITS | Encounter Summary ---
Author Organization [facility] [place] [address] Care Team Providers Care Post Adoption Coordinator Name Role Phone KwokBrandy mchugh Mony GUILLEN Primary Care Provider +1- [phone] Reason for Referral * Physical Therapy (Routine) - Closed by system - Referral Specialty Diagnoses / Procedures Referred By Enedina t Referred To Contact Physical Therapy Diagnoses Chronic pain in right shoulder Monica Osorio [facility] [place] [address] Referral ID Status Reason Start Date Expiration Date Visits Requested Visits Authorized [id number] Closed by system - Referral Evaluate and Treat 4 08/17/2014 1 1 Reason for Visit * Reason Comments Right Shoulder Pain Encounter Details Date Type Department Care Team (Late st Contact Info) Description 02/18/2014 2:00 PM EST Follow-Up Pain Management at [place] [phone] Monica Osorio [facility] [place] [id number] Chronic pain in right shoulder Discharge Disposition: [...] this encounter Progress Notes * Monica Osorio, SUPERVISOR FINISH END - 02/18/2014 2:19 PM EST PAIN CLINIC FOLLOW-UP Nasrin Haney [id number] Reason for follow-up: Medical managment Chief Complaint: [...] in day care Recent treatments: none The [place] Prescription Monitoring Program was checked and no [...] with good hygiene. No pain behaviors. No Ltey signs. Wearing a mask today for URI. [...] region documented in this encounter Care Teams Post Adoption Coordinator Relationship Specialty Start Date End Date Brandy Kwok APRN PCP - General 01/24/14 04/23/15 documented as of this encounter
--- OUTSIDE RECORDS SUMMARY | 2024-02-07 14:46 | XMS_ITS | Encounter Summary ---
Author Organization [facility] [place] [address] Care Team Providers Care Review Rn Name Role Phone Brandy Gilman APRN Primary Care Provider +1- [phone] Encounter Details Date Type Department Care Team (Late st Contact Info) Description 04/18/2014 Notes [place] [address] Boston Henderson DO [facility] [address] PAIN CLINIC [place] [id number] Social History Tobacco Use Types Packs/Day Years [...] on filedocumented in this encounter Care Teams Review Rn Relationship Specialty Start Date End Date Brandy Gilman APRN PCP - General 01/24/14 04/23/15 documented as of this encounter
--- OUTSIDE RECORDS SUMMARY | 2024-02-07 14:46 | XMS_ITS | Encounter Summary ---
Author [place] [address] Care Team Providers Care Motion Picture Set Up Worker Name Role Phone Brandy Gilman APRN Primary Care Provider +1- [phone] Encounter Details Date Type Department Care Team (Late st Contact Info) Description 05/18/2014 Telephone [place] [phone] Cinda Kitchen LPN Social History Tobacco Use [...] Sellers, nurse for Dr. Roscoe Cassidy from [place], [place]. She voiced the patient will be [...] on filedocumented in this encounter Care Teams Motion Picture Set Up Worker Relationship Specialty Start Date End Date Brandy Gilman APRN PCP - General 01/24/14 04/23/15 documented as of this encounter
--- OUTSIDE RECORDS SUMMARY | 2024-02-07 14:46 | XMS_ITS | Encounter Summary ---
[place] [address] Care Team Providers Care Field Service Supervisor Name Role Phone Brandy Gilman APRN Primary Care Provider +1- [phone] Reason for Visit * Reason Onset Date Comments Medication Refill 12/09/2014 Encounter Details Date Type Department Care Team (Late st Contact Info) Description 12/09/2014 [place]ill [place] [address] Neva Harvey, RN Social History Tobacco Use [...] on filedocumented in this encounter Care Teams Field Service Supervisor Relationship Specialty Start Date End Date Brandy Gilman APRN PCP - General 01/24/14 04/23/15 documented as of this encounter
[2024-02-07] MEDS: Ketorolac 15 MG/ML VIAL IVP (14:54)
[2024-02-07 14:58] LABS: Basophils % 0.6 %; Eosinophils % 5.3 %; HCT 43.1 % (36.0-46.0); HGB 14.2 g/dL (11.2-15.7); Lymphocytes % 19.5 %; MCH 29.5 pg (27.0-33.0); MCHC 32.9 % (32.0-36.0); MCV 89 fL (80-95); MPV 9.4 fL (8.0-11.0); Neutrophils % 66.3 %; Platelet Count 338 10^3/uL (130-400); RBC 4.82 10^6/uL (3.93-5.22); RDW 12.7 % (11.7-14.6); RDW-SD 41.7 fL; WBC 11.77 10^3/uL (4.4-10.8)
[2024-02-07 14:59] LABS: Abs Immature Grans 0.03 10^3/uL (0.0-0.06); Absolute Basophil Count 0.07 10^3/uL (0.0-0.2); Absolute Eosinophil Count 0.62 10^3/uL (0.0-0.7); Absolute Monocyte Count 0.94 10^3/uL (0.1-0.8); Immature Grans % 0.3 %
[2024-02-07] MEDS: Normal Saline - Diluent 50 ML VIAL IJ (15:02)
[2024-02-07] MEDS: Omnipaque 350 MG/ML 100 ML BTL 80 ML IJ (15:05)
[2024-02-07 15:16] LABS: ALT 17 U/L (14-59); AST 18 U/L (15-37); Albumin 3.7 g/dL (3.4-5.0); Alkaline Phosphatase 68 U/L (46-116); Anion Gap 5.9 mmol/L (3-11); BUN 15 mg/dL (7-18); Bilirubin, Total 0.37 mg/dL (0.2-1.0); CO2 30.1 mmol/L (21.0-32.0); CREATININE 0.9 mg/dL (0.55-1.02); Calcium 8.6 mg/dL (8.5-10.1); Chloride 108 mmol/L (98-107); ETHANOL BLOOD < 3.0 mg/dL (<10); Estimated GFR 82.88 (mL/min/1.73m2); Glucose 83 mg/dL (74-106); Potassium 3.8 mmol/L (3.5-5.1); Sodium 144 mmol/L (136-145); Total Protein 7.6 g/dL (6.4-8.2)
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
[2024-02-07 16:25] VITALS: BP 132/68; PULSE 68
== END 2024-02-07 17:04 | disposition home or self-care (01) ==
PROVIDERS: Emergency Provider Student in an Organized Health Care Education/Training Program; PCP Physician Assistant
DX: S93.401A Sprain of unspecified ligament of right ankle, initial encounter (principal); M25.551 Pain in right hip; S90.511A Abrasion, right ankle, initial encounter; S00.511A Abrasion of lip, initial encounter; S00.81XA Abrasion of other part of head, initial encounter; F17.210 Nicotine dependence, cigarettes, uncomplicated; V48.7XXA Person on outside of car injured in noncollision transport accident in traffic accident, initial encounter; Y92.414 Local residential or business street as the place of occurrence of the external cause
CPT/HCPCS: 36415; 74177; 80053; 96374; 99285; 70450; 70486; 71260; 72125; 73590; 73610; 80320; 85025; 99284; J1885; J3490

== ENCOUNTER 2024-05-04 11:22 | Emergency (ER) | payer SELFPAY ==
[2024-05-04 11:33] VITALS: BP 152/87; PULSE 109; RESP 22; TEMP 36.4; O2SAT 96
--- OUTSIDE RECORDS SUMMARY | 2024-05-04 11:35 | XMS_ITS | Clinical Summary ---
Author Organization [facility] Address [address] [place] [address] Care Team Providers Care Reinsurance Claim Analyst Name Role Phone Bee Levine NP Primary Care Provider [phone] Social History Tobacco Use Types Packs/Day Years Used Date Smoking Tobacco: Never Assessed Interpersonal Safety Answer Date Record ed Physically Hurt Never 12/29/2019 Verbally Threaten Not on file 12/29/2019 Comments Unknown Sex and Gender Information Value Date Recorded Sex Assigned at Not on file Legal Sex Female 18:23 EST Gender Identity Not on file Sexual Orientation Not on file Plan of Treatment Health Maintenance Due Date Last Done Comments Hepatitis C Screen 1983 Hepatitis B Vaccine (1 of 3 - 19+ 3-dose series) 03/20 COVID-19 Vaccine ( season) 2023 Insurance MEDICAID [place] Care Teams Reinsurance Claim Analyst Relationship Specialty Start Date End Date Bee Levine NP PCP - General 12/22/19
--- OUTSIDE RECORDS SUMMARY | 2024-05-04 11:35 | XMS_ITS | Encounter Summary ---
Author Organization [facility] Address [address] [place] [address] Care Team Providers Care Marine Biologist Name Role Phone Bee Levine GREENS PLANTER Primary Care Provider Encounter Details Date Type Department Care Team (Late st Contact Info) Description 01/21/2020 Lab Requisition [facility] Pathology & Laboratory Medicine - [address] [address] Outr Resulting Lab, Provider Social History Tobacco [...] Unknown 01/21/2020 14:05 EDT 01/21/2020 20:59 EDT us Provider Outr Resulting Lab MICROBIOLOGY - GENER AL ORDERABLES Final Result Performing Organization Address [facility] de Phone Number [facility] [address] [place] [address] * COVID-19 TESTING (01/21/2020 14:05 EDT) COVID-19 rt-PCR Result Negative Negative 01/22/2020 1:49 EDT [facility] Comment: This test has [...] history, and epidemiological information. Performed on the Machinimaher Fusion instrument Performing Lab [place] [facility] 01/22/2020 1:49 EDT [facility] Swab 01/21/2020 14:0 5 EDT 01/21/2020 20:59 EDT us Provider Outr Resulting Lab MICROBIOLOGY - GENER AL ORDERABLES Final Result Performing Organization Address [facility] Co de Phone Number [facility] [address] [place] [address] documented in this encounter Visit Diagnoses Not on filedocumented in this encounter Care Teams Marine Biologist Relationship Specialty Start Date End Date Bee Levine NP PCP - General 12/22/19 documented as of this encounter
--- OUTSIDE RECORDS SUMMARY | 2024-05-04 11:35 | XMS_ITS | Encounter Summary ---
Author Organization [facility] Address [address] [place] [address] Care Team Providers Care Muff Winder Name Role Phone Bee Levine HOUSEHOLD CHORES Primary Care Provider [phone] Encounter Details Date Type Department Care Team (Late st Contact Info) Description 12/22/2019 Lab Requisition [facility] Pathology & Laboratory Medicine - [address] [address] Cordell hTomas MD [address] [place] [id number] Encounter for other general examination Social History Tobacco Use Types Packs/Day Years Used Date Smoking Tobacco: Never Assessed Comments Unknown Sex and Gender Information Value [...] - Corpus luteal cyst. 12/28/2019 16:43 EDT [facility] Attestation There was significant resident/fellow involvement in the diagnostic evaluation of this case. By the signature below, the attending physician certifies that they have personally conducted a gross and/or microscopic examination of the described specimens and rendered or confirmed the above diagnosis. 12/28/2019 16:43 EDT [facility] at 1643 Clinical History Ovarian cyst 12/28/2019 16:43 EDT [facility] Gross Description A. [...] thickness. No normal ovarian parenchyma is present. Gang Supervisor Pipe Lines sections are submitted in A1. PATT MATTHEWS 12/23/2019 8:02 12/28/2019 16:43 EDT [facility] Resident/Jasmeet w: Mark Francois MD 12/28/2019 16:43 EDT [facility] Performing Lab [facility] 12/28/2019 16:43 EDT [facility] Scanned Images 12/28/2019 16:43 EDT [facility] Tissue ENTIRE OVARY / Unknown 12/22/2019 8:15 EDT 12/22/2019 17:20 EDT us Cordell Thomas MD PATHOLOGY ORDERABLES Final Resul t [facility] [address] [place] [address] documented in this encounter Visit Diagnoses Diagnosis Encounter for other general examination documented in this encounter Care Teams Muff Winder Relationship Specialty Start Date End Date Bee Levine NP PCP - General 12/22/19 documented as of this encounter
--- OUTSIDE RECORDS SUMMARY | 2024-05-04 11:35 | XMS_ITS | Referral Summary ---
Author Organization [facility] Address [address] [place] [address] Care Team Providers Care Radiology Practitioner Assistant Name Role Phone Bee Levine NP Primary Care Provider [phone] Social History Tobacco Use Types Packs/Day Years [...] file Plan of Treatment Not on file Insurance MEDICAID [place] Care Teams Radiology Practitioner Assistant Relationship Specialty Start Date End Date Bee Levine NP PCP - General 12/22/19
--- OUTSIDE RECORDS SUMMARY | 2024-05-04 11:35 | XMS_ITS | Encounter Summary ---
Author Organization [facility] Address [address] [place] [address] Care Team Providers Care Biostatistician Name Role Phone Unknown, Provider MD Primary Care Provider Bee Bangura TREE TRIMMING LINE TECHNICIAN Primary Care Provider [phone] Encounter Details Date Type Department Care Team (Late st Contact Info) Description 12/17/2019 Lab Requisition [facility] Pathology & Laboratory Medicine - [address] [address] Outr Resulting Lab, Provider Social History Tobacco [...] rt-PCR Result NEGATIVE Negative 12/18/2019 17:54 EDT [facility] Comment: 2019-novel Coronavirus (2019-nCoV) [...] in accordance with CLIA regulations, College of [place] (CAP) guidelines (Jun 24, 2019), and FDA guidance (Jun 05, 2019). This test is only for use under the Food and Drug Administration's Emergency Use Authorization. Swab ENTIRE NASOPHARYNX / Unknown 12/17/2019 14:17 EDT 12/17/2019 21:24 EDT us Provider Outr Resulting Lab MICROBIOLOGY - GENER AL ORDERABLES Final Result [facility] [place], [place] * COVID-19 TESTING (12/17/2019 14:17 EDT) COVID-19 rt-PCR Result NEGATIVE Negative 12/18/2019 20:24 EDT [facility] Comment: 2019-novel Coronavirus (2019-nCoV) not [...] in accordance with CLIA regulations, College of [place]ologists (CAP) guidelines (Jun 24, 2019), and FDA guidance (Jun 05, 2019). This test is only for use under the Food and Drug Administration's Emergency Use Authorization. Performing Lab [facility] 12/18/2019 20:24 EDT [facility] Swab 12/17/2019 14:1 7 EDT 12/17/2019 21:24 EDT us Provider Outr Resulting Lab MICROBIOLOGY - GENER AL ORDERABLES Final Result Performing Organization Address City/State/[facility] Co de Phone Number [facility] [address] [place] [phone] [place] [address] LABORATORY [place], [place] documented in this encounter Visit Diagnoses Not on filedocumented in this encounter Care Teams Biostatistician Relationship Specialty Start Date End Date Unknown, Provider, PCP - General 04/04/09 12/21/19 Bee Levine NP PCP - General 12/22/19 documented as of this encounter
--- OUTSIDE RECORDS SUMMARY | 2024-05-04 11:35 | XMS_ITS | Encounter Summary ---
Author Organization [facility] Address [address] [place] [address] Care Team Providers Care Ecg Technician Name Role Phone Bee Levine BANK SECRECY ACT OFFICER Primary Care Provider Encounter Details Date Type Department Care Team (Late st Contact Info) Description 09/10/2021 Lab Requisition [facility] Pathology & Laboratory Medicine - [address] [address] Outr Resulting Lab, Provider Social History Tobacco [...] 09/10/2021 12:4 5 EDT 09/11/2021 21:11 EDT us Provider Outr Resulting Lab MICROBIOLOGY - GENER AL ORDERABLES Final Result Performing Organization Address City/[facility]/ZIP Co de Phone Number [facility] [address] [place] [address] * COVID-19 TESTING (09/10/2021 12:45 EDT) COVID-19 rt-PCR Result Negative Negative 09/12/2021 12:37 EDT [facility] Comment: This test has not [...] performed using the tyrell SARS-CoV-2 assay ([employer] on the Tyrell 6800 System Performing Lab Tyrell [address] [facility] Lab 09/12/2021 12:37 EDT [facility] Swab 09/10/2021 12:4 5 EDT 09/11/2021 21:11 EDT us Provider Outr Resulting Lab MICROBIOLOGY - GENER AL ORDERABLES Final Result Performing Organization Address [facility] Co de Phone Number [facility] [address] [place] [address] documented in this encounter Visit Diagnoses Not on filedocumented in this encounter Care Teams Ecg Technician Relationship Specialty Start Date End Date Bee Levine NP PCP - General 12/22/19 documented as of this encounter
--- OUTSIDE RECORDS SUMMARY | 2024-05-04 11:36 | XMS_ITS | Encounter Summary ---
Author Organization [facility] Address [address] [place] [address] Care Team Providers Care Dehydrogenation Operator Head Name Role Phone Unknown, Provider MD Primary Care Provider Bee Bangura MASS SPECTROSCOPIST Primary Care Provider [phone] Encounter Details Date Type Department Care Team (Late st Contact Info) Description 12/17/2019 Lab Requisition [facility] Pathology & Laboratory Medicine - [address] [address] Cordell Thomas MD [address] [place] [address] Encounter for other general examination Social History [...] Risk types, PCR Negative Negative 12/27/2019 15:22 [facility] Comment:No E6 or E7 mRNA is detected from HPV types 16,18,31,33,35,39,45,51,52,56,58,59,66, and 68 by volumetric weigher mediated amplification. Papanicolaou smear specimen (specimen) CERVIX UTERI STRUCTURE / Unknown 12/17/2019 11:35 EDT 12/26/2019 19:29 EDT us Cordell Thomas MD MICROBIOLOGY - GENERAL ORDERABLE S Final Result [facility] [address] [place] [address] * PAP TEST (12/17/2019 11:35 EDT) Specimens A. Cervix and/or Endocervix , ThinPrep Imaging System with Manual Evaluation 12/27/2019 15:22 [facility] Specimen Adequacy Satisfactory for Evaluation - transformation zone component present 12/27/2019 15:22 [facility] General Categorization Negative for intraepithelial lesion or malignancy 12/27/2019 15:22 [facility] Descriptive Diagnosis Shift in maricel present suggestive of bacterial vaginosis. 12/27/2019 15:22 [facility] Attestation . 12/27/2019 15:22 [facility] at 1522 Clinical History NONE 12/27/19 15:22 [facility] HPV The result for the Human Papillomavirus (HPV) Detection-High Risk Types is Negative. No E6 or E7 mRNA is detected from HPV types 16,18,31,33,35,39 ,45,51,52,56,58,5 9,66, and 68 by volumetric weigher mediated amplification.Sade ting was performed on specimen [id number] and was resulted on 12/27/2019 1518 EDT by TOPHER, LAB INSTRUMENT RESULTS IN 12/27/2019 15:22 [facility] Performing Lab [facility] 12/27/2019 15:22 EDT [facility] Scanned Images 12/27/2019 15:22 EDT [facility] Papanicolaou smear specimen (specimen) CERVIX UTERI STRUCTURE / Unknown 12/17/2019 11:35 EDT 12/21/2019 9:17 EDT us Cordell Thomas MD PATHOLOGY ORDERABLES Final Resul t [facility] [address] [place] [address] * CHLAMYDIA/N. GONORRHOEAE AMPLIFIED RNA, THINPREP (12/17/2019 11:35 EDT) Neisseria gonorrhoeae Result Negative Negative 12/21/2019 14:39 EDT [facility] Chlamydia trachomatis Result Negative Negative 12/21/2019 14:39 EDT [facility] Papanicolaou smear specimen (specimen) CERVIX UTERI STRUCTURE / Unknown 12/17/2019 11:35 EDT 12/20/2019 10:56 EDT us Cordell Thomas MD MICROBIOLOGY - GENERAL ORDERABLE S Final Result Performing Organization Address City/[facility]/ZIP Co de Phone Number [facility] [address] [place] [address] documented in this encounter Visit Diagnoses Diagnosis Encounter for other general examination documented in this encounter Care Teams Dehydrogenation Operator Head Relationship Specialty Start Date End Date Unknown, Provider, PCP - General 04/04/09 12/21/19 Bee Levine, MASS SPECTROSCOPIST PCP - General 12/22/19 documented as of this encounter
--- OUTSIDE RECORDS SUMMARY | 2024-05-04 11:36 | XMS_ITS | Encounter Summary ---
Author Organization [facility] Address [address] [place] [address] Care Team Providers Care Under Presser Name Role Phone Unknown, Provider Primary Care Provider Unava ilable Encounter Details Date Type Department Care Team (Late st Contact Info) Description 09/18/2015 Results Only [facility] [phone] Bee Levine, MOBILE HOME MECHANIC [address] [place] [phone] Social History Tobacco Use Types Packs/Day [...] ? NASRIN HANEY ? Accession #: ? [id number] ? : ? 1985 (Age: 30) ??F ?Collect Date: ? 09/18/2015 ? Location: ? [facility] ? Receive Date: ? 09/20/2015 ? Provider: BEE GARZON RAILROAD TRACK MECHANIC Copy to: ? Final Report SPECIMEN ADEQUACY [...] and electronically signed by: ? Myah Johnston, [place](ASCP)(IAC) ? Report ??Date: 10/03/2015 10:26 HPV with Pap Test ? Date Ordered: ? 10/03/2015 ? Status: ?? Signed Out ?Date Complete: ? 10/05/2015 ? By: ??System Interface ? Date Reported: ? 10/05/2015 ? Interpretation RESULT: Negative for HPV. No E6 or E7 mRNA is detected from HPV types 16,18,31,33,35, 39,45,51,52,56,58, 59,66, and 68 by national recruiter mediated amplification. Comments Document reviewed and electronically signed by: ? System Interface ? Report date: 10/05/2015 By the signature above, the attending physician certifies that he/she has personally conducted a gross and/or microscopic examination of the described specimens and rendered or confirmed the above diagnosis. End of Report [facility] 09/18/2015 09/20/2015 us Bee Levine NP PATHOLOGY ORDERABLES Final Re sult [facility] [address] [place] [address] documented in this encounter Visit Diagnoses Not on filedocumented in this encounter Care Teams Under Presser Relationship Specialty Start Date End Date Unknown, Provider, PCP - General 04/04/09 12/21/19 documented as of this encounter
--- OUTSIDE RECORDS SUMMARY | 2024-05-04 11:37 | XMS_ITS | Encounter Summary ---
Author Organization [facility] Address [address] [place] [address] Care Team Providers Care Theatre Program Director Name Role Phone Unknown, Provider Primary Care Provider Unava ilable Encounter Details Date Type Department Care Team (Late st Contact Info) Description 02/28/2003 Results Only [facility] - Maple conversion [address] [place] [address] Raman Maynard, MARIA GUADALUPE [address] [place] [address] Social History Tobacco Use Types [...] 68. [facility] Report Status Final [id number] [facility] 02/28/2003 14:2 6 EST 03/09/2003 14:26 EST us Raman Maynard NP MICROBIOLOGY - GENERAL ORDER BÁRBARA Final Result [facility] [address] [place] [address] * CYTOPATHOLOGY (02/28/2003 0:00 EST) Pathology Report: CYTOPATHOLOGY REPORT Reports generated via electronic interface contain original data; however they are lacking the format of the original report. Caution should be taken when reading/interpreti ng unformatted reports. Name: ? NASRIN HANEY ? Accession #: ? [id number] : ? 1985 (Age: 17) ??F ?Collect [...] ? Kathy Harper, CT(ASCP) ? Report Date: ??03/09/2003 10:04 End of Report [facility] 02/28/2003 03/04/2003 us Raman Maynard POWDER WORKER TNT PATHOLOGY ORDERABLES Final R esult [facility] [address] [place] [address] documented in this encounter Visit Diagnoses Not on filedocumented in this encounter Care Teams Theatre Program Director Relationship Specialty Start Date End Date Unknown, Provider, PCP - General 04/04/09 12/21/19 documented as of this encounter
--- OUTSIDE RECORDS SUMMARY | 2024-05-04 11:37 | XMS_ITS | Encounter Summary ---
[place] [address] Care Team Providers Care Sock Mender Name Role Phone Brandy Gilman APRN Primary Care Provider +1- [phone] Encounter Details Date Type Department Care Team (Late st Contact Info) Description 05/18/2014 Telephone [place] [phone] Cinda Kitchen LPN Social History Tobacco Use [...] Sellers, nurse for Dr. Roscoe Cassidy from [place], [place]. She voiced the patient will be [...] on filedocumented in this encounter Care Teams Sock Mender Relationship Specialty Start Date End Date Brandy Gilman APRN PCP - General 01/24/14 04/23/15 documented as of this encounter
--- OUTSIDE RECORDS SUMMARY | 2024-05-04 11:37 | XMS_ITS | Encounter Summary ---
Author Organization [facility] Address [address] [place] [address] Care Team Providers Care Slots Manager Name Role Phone Unavailable Primary Care Provider Unavailabl e Encounter Details Date Type Department Care Team (Late st Contact Info) Description 05/04/2008 Before PRISM Converted Visit (Maple) [facility] - Maple conversion [address] [place] [address] Rosaura Carrera MD [address] [place] [address] [place] [address] Social History Tobacco Use Types Packs/Day Years [...] reading/interpreti ng unformatted reports. ? Name: ? AMANDA, NASRIN A ? Accession #: ? [id number] ? : ? 1985 (Age: 23) ??F ? Collect Date: ? 05/04/2008 ? Location: ? [facility] ? Receive Date: ? 05/04/2008 ? Provider: ROSAURA CARRERA MD ? Copy to: RUTH ROBERTO MD ? Final Pathologic Diagnosis: ? Ovary, [...] [facility] 05/04/2008 05/04/2008 16: 33 EST us Rosaura Carrera MD PATHOLOGY ORDERABLES Final Resu lt [facility] [address] [place] [address] documented in this encounter Visit Diagnoses Not on filedocumented in this encounter
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
--- OUTSIDE RECORDS SUMMARY | 2024-05-04 11:37 | XMS_ITS | Encounter Summary ---
Author Organization [facility] Address [address] [place] [address] Care Team Providers Care System Dispatcher Name Role Phone Unavailable Primary Care Provider Unavailabl e Encounter Details Date Type Department Care Team (Late st Contact Info) Description 08/31/2008 Orders Only [facility] Services - [facility] [address] [place], [place] [address] Shadia Barrow CNM [address] [address] Social History Tobacco Use Types Packs/Day Years [...] ? NASRIN HANEY ? Accession #: ? [id number] ? : ? 1985 (Age: 23) ??F [...] of Report ? [facility] 08/31/2008 09/01/2008 us Shadia Barrow CNM PATHOLOGY ORDERABLES Final Resul t [facility] [address] [place] [address] documented in this encounter Visit Diagnoses Not on filedocumented in this encounter
--- OUTSIDE RECORDS SUMMARY | 2024-05-04 11:37 | XMS_ITS | Encounter Summary ---
[place] [address] Care Team Providers Care Exterminator Helper Termite Name Role Phone Brandy Kwok WILMER Primary Care Provider +1- [phone] Reason for Visit * Reason Comments Right Shoulder Pain Encounter Details Date Type Department Care Team (Late st Contact Info) Description 10/06/2014 7:45 AM EDT Follow-[place] [address] Monica Osorio APRN Chronic pain in right shoulder Discharge Disposition: [...] AM EDT PAIN CLINIC FOLLOW-UP Nasrin Haney [id number] Reason for follow-up: Medical managment Chief Complaint: [...] can be variable, sleeping in a chair Smokin/ ppd Alcohol: no Functional Status: lives with state assist, able to care for self, needs help with daughter and caring for her home (essentially has one arm) Recent treatments: PT The [place] Prescription Monitoring Program was checked and no [...] region documented in this encounter Care Teams Exterminator Helper Termite Relationship Specialty Start Date End Date Brandy Kwok APRN PCP - General 01/24/14 04/23/15 documented as of this encounter
--- OUTSIDE RECORDS SUMMARY | 2024-05-04 11:37 | XMS_ITS | Encounter Summary ---
Author Organization [facility] [place] [address] Care Team Providers Care Corporate Buyer Name Role Phone Brandy Gilman APRN Primary Care Provider +1- [phone] Reason for Visit * Reason Comments Right Shoulder Pain Encounter Details Date Type Department Care Team (Latest Contact Info) Description 03/22/2014 12:15 PM EST Procedure visit [place] [address] Ruddy Mcpherson V [facility] [place] [id number] Muscle pain Discharge Disposition: Home Social History [...] this entire procedure. Ruddy Mcpherson DO, MPH [facility]-subspecialty board certification in Pain Medicine Attending Physician - Pain Management CC: Shayna Trammell, WILMER [address] [place] [address] documented in this encounter Plan of Treatment [...] Physician - Pain Management CC: Shayna Trammell, COMMERCIAL CREDIT ANALYST OPAL [address] [place] [address] Ruddy Melendez DO NEUROLOGY ORDERABLES documented in [...] mg documented in this encounter Care Teams Corporate Buyer Relationship Specialty Start Date End Date Brandy Gilman APRN PCP - General 01/24/14 04/23/15 documented as of this encounter
--- OUTSIDE RECORDS SUMMARY | 2024-05-04 11:37 | XMS_ITS | Encounter Summary ---
[place] [address] Care Team Providers Care Clinical Neuropsychologist Name Role Phone Brandy Gilman APRN Primary Care Provider +1- [phone] Encounter Details Date Type Department Care Team (Late st Contact Info) Description 01/25/2015 Orders [place] [address] Manjula Willis RN Social History Tobacco Use [...] on filedocumented in this encounter Care Teams Clinical Neuropsychologist Relationship Specialty Start Date End Date Brandy Gilman APRN PCP - General 01/24/14 04/23/15 documented as of this encounter
--- OUTSIDE RECORDS SUMMARY | 2024-05-04 11:37 | XMS_ITS | Encounter Summary ---
Author Organization [facility] [place] [address] Care Team Providers Care Teacher Dancing Name Role Phone Brandy iGlman APRN Primary Care Provider +1- [phone] Encounter Details Date Type Department Care Team (Late st Contact Info) Description 02/28/2015 Notes [place] [phone] Malik Bridges DO Social History Tobacco Use Types Packs/Day Years [...] on filedocumented in this encounter Care Teams Teacher Dancing Relationship Specialty Start Date End Date Brandy Gilman APRN PCP - General 01/24/14 04/23/15 documented as of this encounter
--- OUTSIDE RECORDS SUMMARY | 2024-05-04 11:37 | XMS_ITS | Encounter Summary ---
Author Organization [facility] Address [address] [place] [address] Care Team Providers Care Retail Helper Name Role Phone Unknown, Provider Primary Care Provider Unava ilable Encounter Details Date Type Department Care Team (Late st Contact Info) Description 04/22/2007 Results Only [facility] - Maple conversion [address] [place] [address] Roddy Kwok, MARIA GUADALUPE [address] [place] [phone] Social History Tobacco Use Types Packs/Day [...] ? NASRIN HANEY ? Accession #: ? [id number] : ? 1985 (Age: 22) ??F ?Collect Date: ? 04/22/2007 Location: ? [facility] ? Receive Date: ? 04/23/2007 Provider: ?RODDY KWOK SENIOR SALES MANAGER Copy to: ? Specimen/Source: ?ThinPrep Pap Test, Cervix/Endocervix, processed on [employer] ThinPrep Imaging System, with manual evaluation Last Menstrual Period: ? 04/05/07 Hormonal/Contracep tive Status: ? Control Pills: in past Other: ? Additional clinical information: abnormal in past ? SPECIMEN ADEQUACY ? Satisfactory for Evaluation - transformation zone component absent GENERAL CATEGORIZATION ? Negative for Intraepithelial Lesion or Malignancy ? Document reviewed and electronically signed by: ? Rashdia Espinoza, SCT(ASCP) ? Report Date: ??04/29/2007 09:39 End of Report [facility] 04/22/2007 04/23/2007 us Roddy Kwok SENIOR SALES MANAGER PATHOLOGY ORDERABLES Final Res ult [facility] [address] [place] [address] documented in this encounter Visit Diagnoses Not on filedocumented in this encounter Care Teams Retail Helper Relationship Specialty Start Date End Date Unknown, Provider, PCP - General 04/04/09 12/21/19 documented as of this encounter
--- OUTSIDE RECORDS SUMMARY | 2024-05-04 11:37 | XMS_ITS | Clinical Summary ---
Author Organization [facility] Address [facility] [place] [address] Care Team Providers Care Caustic Mixer Name Role Phone Bee Levine APRN Primary Care Provider +1- [phone] Allergies Active Allergy Reactions Criticality Noted Date [...] Name Administration Dates Next Due Influenza (Novel [id number]) Injectable 02/15/2009 Influenza Vaccine, Whole 02/02/2009 Social [...] standard series) 12/07/2023 02/15/2009, 02/02/2009 Care Teams Caustic Mixer Relationship Specialty Start Date End Date Bee Levine, ELASTIC CUTTER PCP - General Family Medicine 04/24/15
--- OUTSIDE RECORDS SUMMARY | 2024-05-04 11:37 | XMS_ITS | Encounter Summary ---
[place] [address] Care Team Providers Care Roving Hand Name Role Phone Brandy Gilman APRN Primary Care Provider +1- [phone] Encounter Details Date Type Department Care Team (Late st Contact Info) Description 03/23/2014 Tele[place] [phone] Cinda Kitchen LPN Social History Tobacco Use [...] on filedocumented in this encounter Care Teams Roving Hand Relationship Specialty Start Date End Date Brandy Gilman APRN PCP - General 01/24/14 04/23/15 documented as of this encounter
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
--- OUTSIDE RECORDS SUMMARY | 2024-05-04 11:37 | XMS_ITS | Encounter Summary ---
Author Organization [facility] [place] [address] Care Team Providers Care Procurement Professional Name Role Phone Brandy Kwok Kirk GUILLEN Primary Care Provider +1- [phone] Reason for Visit * Reason Comments Pain Management Right Shoulder Pain Neck Pain Encounter Details Date Type Department Care Team (Late st Contact Info) Description 03/21/2015 8:45 AM EST Office [place] [address] Rashida Duque LINEN ATTENDANT [facility] [place] [address] Chronic pain in right shoulder; Pain management [...] PROVIDER Brandy Kwok APRN OPAL [address] [address] PRIMARY CARE PROVIDER BRANDY KWOK APRN Opioid agreement signed date: 01/18/14 Most recent UDT results and date: 02/21/15 inconsistent with [facility] Prescription Monitoring Program was checked and no [...] MRI and plan Plans to go to [facility] HPI PAIN ASSESSMENT:: Description Right shoulder pain [...] ??? 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 Appearance/ Behavior Anxious appearing, seen with school bus driver/mechanic, clear speech Lungs Unlabored breathing Skin Bilateral [...] to her satisfaction. Rashida Duque DNP, ANP-CS, LINEN ATTENDANT Nurse Practitioner [facility] documented in this encounter Plan of Treatment Not on file documented as of this encounter Visit Diagnoses Diagnosis Chronic pain in right shoulder Pain in joint, shoulder region Pain management Other specified rehabilitation procedure documented in this encounter Care Teams Procurement Professional Relationship Specialty Start Date End Date Brandy Kwok APRN PCP - General 01/24/14 04/23/15 documented as of this encounter
--- OUTSIDE RECORDS SUMMARY | 2024-05-04 11:37 | XMS_ITS | Encounter Summary ---
[place] [address] Care Team Providers Care Concrete Worker Name Role Phone Brandy Gilman APRN Primary Care Provider +1- [phone] Reason for Visit * Reason Onset Date Comments Medication Refill 12/09/2014 Encounter Details Date Type Department Care Team (Late st Contact Info) Description 12/09/2014 Refill [place] [address] Neva Harvey, RN Social History Tobacco Use [...] on filedocumented in this encounter Care Teams Concrete Worker Relationship Specialty Start Date End Date Brandy Gilman APRN PCP - General 01/24/14 04/23/15 documented as of this encounter
--- OUTSIDE RECORDS SUMMARY | 2024-05-04 11:37 | XMS_ITS | Encounter Summary ---
Author Organization [facility] [place] [address] Care Team Providers Care Electric Motor Tester Assembler Name Role Phone Mukul Brandy Sykes APRN Primary Care Provider +1- [phone] Encounter Details Date Type Department Care Team (Late st Contact Info) Description 09/08/2014 Notes [place] [address] Michelle Posey APRN [facility] [place] [address] Social History Tobacco Use Types Packs/Day Years Used Date Smoking Tobacco: Every Day Cigarettes 0.5 15 Smokeless Tobacco: Never Sex and Gender Information Value Date Recorded Sex Assigned at Not on file Gender Identity Not on file Sexual Orientation Not on file documented as of this encounter Progress Notes * Michelle Posey APRN - 09/08/2014 12:18 PM EDT Call to [facility] to advise that patient had been authorized last week that she could take additional medications and refill would therefore be due earlier. Spoke with pharmacist who documented this. documented in this encounter Plan of Treatment Not on file documented as of this encounter Visit Diagnoses Not on filedocumented in this encounter Care Teams Electric Motor Tester Assembler Relationship Specialty Start Date End Date Brandy Gilman APRN PCP - General 01/24/14 04/23/15 documented as of this encounter
--- OUTSIDE RECORDS SUMMARY | 2024-05-04 11:37 | XMS_ITS | Encounter Summary ---
Author Organization [facility] Address [address] [place] [address] Care Team Providers Care Store Operations Manager Name Role Phone Unknown, Provider Primary Care Provider Unava ilable Encounter Details Date Type Department Care Team (Late st Contact Info) Description 12/18/2001 Results Only [facility] [address] [place] [address] Raman Maynard, MARIA GUADALUPE [address] [place] [address] Social History Tobacco Use Types [...] ? NASRIN HANEY ? Accession #: ? [id number] : ? 1985 (Age: 16) ??F ?Collect Date: ? 12/18/2001 Location: ? [facility] ? Receive Date: ? 12/22/2001 Provider: ?RAMAN MAYNARD [facility] Copy to: ? Specimen/Source: ?ThinPrep Pap Test, [...] of Report [facility] 12/18/2001 12/22/2001 us Raman Maynard NP PATHOLOGY ORDERABLES Final R esult [facility] [address] [place] [address] documented in this encounter Visit Diagnoses Not on filedocumented in this encounter Care Teams Store Operations Manager Relationship Specialty Start Date End Date Unknown, Provider, PCP - General 04/04/09 12/21/19 documented as of this encounter
--- OUTSIDE RECORDS SUMMARY | 2024-05-04 11:37 | XMS_ITS | Encounter Summary ---
[place] [address] Care Team Providers Care Hay Stacker Operator Name Role Phone Brandy Gilman APRN Primary Care Provider +1- [phone] Encounter Details Date Type Department Care Team (Late st Contact Info) Description 01/05/2015 Telephone [place] [phone] Neva Harvey, RN Social History Tobacco Use [...] Management Center Preauthorization Request Patient: Nasrin Haney [id number] Fax received from [facility] requesting we obtain prior authorization for Ketamine Baclofen, Diclofenac, Gabapentin Lidocaine cream prescribed by Michelle Posey APRN. RX [place]: [place] telephone: Patient Diagnosis: Chronic pain right shoulder, Pain management snf use of medications Previous medications attempted: Ibuprofen, NSAIDS, Tramadol The following action was taken after discussion with the career services representative: _X_ approved, patient informed _X_ pharmacy informed _X_ faxed approval sent to Medical Records (if received) Authorized dosage or amount: Ketamine Baclofen, Diclofenac, Gabapentin Lidocaine Authorized duration: 01/05/2015 to 07/07/2015 Authorization/Reference number: [id number], Neva Harvey RN documented in this encounter Plan of Treatment Not on file documented as of this encounter Visit Diagnoses Not on filedocumented in this encounter Care Teams Hay Stacker Operator Relationship Specialty Start Date End Date Brandy Gilman APRN PCP - General 01/24/14 04/23/15 documented as of this encounter
--- OUTSIDE RECORDS SUMMARY | 2024-05-04 11:37 | XMS_ITS | Encounter Summary ---
[place] [address] Care Team Providers Care Spacer Type Bar And Segment Name Role Phone Brandy Gilman APRN Primary Care Provider +1- [phone] Encounter Details Date Type Department Care Team (Late st Contact Info) Description 11/29/2014 Telephone [place] [phone] Akosua Santana, RN Social History Tobacco Use [...] on filedocumented in this encounter Care Teams Spacer Type Bar And Segment Relationship Specialty Start Date End Date Brandy Gilman APRN PCP - General 01/24/14 04/23/15 documented as of this encounter
--- OUTSIDE RECORDS SUMMARY | 2024-05-04 11:37 | XMS_ITS | Encounter Summary ---
[place] [address] Care Team Providers Care Hand Woodworking Sander Name Role Phone Brandy Kwok WILMER Primary Care Provider +1- [phone] Reason for Visit * Reason Comments Pain Management Right Shoulder Pain Encounter Details Date Type Department Care Team (Late st Contact Info) Description 09/08/2014 7:45 AM EDT [place] [phone] Monica Osorio APRN Chronic pain in right [...] AM EDT PAIN CLINIC FOLLOW-UP Nasrin Haney [id number] Reason for follow-up: Medical managment Chief Complaint: [...] self and home Recent treatments: PT The [place] Prescription Monitoring Program was checked [...] region documented in this encounter Care Teams Hand Woodworking Sander Relationship Specialty Start Date End Date Brandy Kwok APRN PCP - General 01/24/14 04/23/15 documented as of this encounter
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
--- OUTSIDE RECORDS SUMMARY | 2024-05-04 11:37 | XMS_ITS | Encounter Summary ---
[place] [address] Care Team Providers Care Strap Making Machine Operator Name Role Phone Brandy Gilman APRN Primary Care Provider +1- [phone] Encounter Details Date Type Department Care Team (Late st Contact Info) Description 11/30/2014 Telephone [place] [address] Neva Harvey, RN Social History Tobacco Use [...] her pharmacy had called yesterday to let [facility] know that per her insurance patient was [...] on filedocumented in this encounter Care Teams Strap Making Machine Operator Relationship Specialty Start Date End Date Brandy Gilman APRN PCP - General 01/24/14 04/23/15 documented as of this encounter
--- OUTSIDE RECORDS SUMMARY | 2024-05-04 11:37 | XMS_ITS | Encounter Summary ---
Author Organization [facility] [address] Care Team Providers Care Title Insurance Sales Representative Name Role Phone Brandy Kwok WILMER Primary Care Provider +1- [phone] Reason for Visit * Reason Comments Pain Management Encounter Details Date Type Department Care Team (Late st Contact Info) Description 11/01/2014 9:15 AM EDT [place] [address] Monica Osorio APRN Chronic pain in right [...] Progress Notes * Monica Osorio APRN - 11/01/2014 9:33 AM EDT PAIN CLINIC FOLLOW-UP Nasrin Haney [id number] Reason for follow-up: Medical managment Chief Complaint: [...] has one arm) Recent treatments: PT The [place] Prescription Monitoring Program was checked [...] employment-relat ed drug testing. Test Performed by: [facility] [address], [place] [address] Kindergarten Teacher: Mela Young, Ph.D. [facility] Urine specimen (specimen) 11/01/2014 9:45 AM EDT 11/01/2014 1:30 PM EDT Narrative Resulting Agency Comment Spec In Lab Ruddy Mcpherson V, DO LAB SEND OUT ORDERAB LES [facility] * Drug Screen with Confirmation, Urine (11/01/2014 [...] ??Morphine ? Negative ? ng/mL ??<100 ??Oxycodone ?69081 ?ng/mL ??<100 ??Oxymorphone ?86948 ?ng/mL ??<100 --ADDITIONAL INFORMATION------ This report is intended for use in clinical monitoring and management of patients. It is not intended for use in employment-relate d drug testing. Test Performed by: [facility] [address], [place] [address] Kindergarten Teacher: Mela Young, Ph.D. [facility] Urine specimen (specimen) 11/01/2014 9:45 AM EDT 11/01/2014 10:35 AM EDT Narrative Resulting Agency Comment Spec In Lab Ruddy Mcpherson V, DO URINE ORDERABLES [facility] documented in this encounter Visit Diagnoses Diagnosis Chronic pain in right shoulder Pain in joint, shoulder region Encounter for long-term (current) use of other medications documented in this encounter Care Teams Title Insurance Sales Representative Relationship Specialty Start Date End Date Brandy Kwok APRN PCP - General 01/24/14 04/23/15 documented as of this encounter
--- OUTSIDE RECORDS SUMMARY | 2024-05-04 11:37 | XMS_ITS | Encounter Summary ---
Author Organization [facility] [place] [address] Care Team Providers Care Soliciting Freight Agent Name Role Phone Brandy Gilman WILMER Primary Care Provider +1- [phone] Encounter Details Date Type Department Care Team (Late st Contact Info) Description 08/24/2014 Telephone [place] [address] Michelle Posey CLIENT SERVICE SUPERVISOR [facility] [place] [address] Social History Tobacco Use Types Packs/Day Years [...] pain medications would have be done with [facility] pain [facility]. Nasrin then called our office [...] on filedocumented in this encounter Care Teams Soliciting Freight Agent Relationship Specialty Start Date End Date Brandy Gilman APRN PCP - General 01/24/14 04/23/15 documented as of this encounter
--- OUTSIDE RECORDS SUMMARY | 2024-05-04 11:37 | XMS_ITS | Encounter Summary ---
Author Organization [facility] [place] [address] Care Team Providers Care Lcac Operator Name Role Phone Brandy Gilman WILMER Primary Care Provider +1- [phone] Reason for Visit * Reason Comments Right Shoulder Pain Encounter Details Date Type Department Care Team (Latest Contact Info) Description 09/21/2014 10:15 AM EDT Procedure visit [place] [address] Michelle Posey FINAL ASSEMBLY WORKER [facility] [place] [address] Myalgia and myositis, unspecified Discharge Disposition: Home [...] with Monica Osorio APRN. Michelle Posey APRN [facility] Pain Management CC: Brandy Gilman APRN OPAL [address] [place] [address] documented in this encounter Plan of Treatment [...] with Monica Osorio APRN. Michelle Posey APRN [facility] Pain Management CC: Brandy Gilman APRN OPAL [address] [place] [address] Ruddy Melendez DO NEUROLOGY ORDERABLES documented in [...] mg documented in this encounter Care Teams Lcac Operator Relationship Specialty Start Date End Date Brandy Gilman APRN PCP - General 01/24/14 04/23/15 documented as of this encounter
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
--- OUTSIDE RECORDS SUMMARY | 2024-05-04 11:37 | XMS_ITS | Encounter Summary ---
Author Organization [facility] [place] [address] Care Team Providers Care Bingo Usher Name Role Phone Brandy Gilman WILMER Primary Care Provider +1- [phone] Reason for Visit * Reason Comments Pain Management Right Shoulder Pain Encounter Details Date Type Department Care Team (Late st Contact Info) Description 08/19/2014 9:45 AM EDT Follow-[place] [address] Michelle Posey CORNCOB PIPE MANUFACTURING SUPERVISOR [facility] [place] [address] Chronic pain in right shoulder; Pain management; [...] March and under the care of from [place] had a biceps repair 1 month ago. She has previously been cared for the in [facility], last seen by Monica Osorio [...] work order until 11/05/14. 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 Currently doing [employer] for finances right now. Alcohol: Denies Tobacco: Smoking cigarettes about 1/2 PPD. She is not currently interested in quitting. Has quit before when she was with her son. The [facility] Prescription Monitoring Program was [...] weeks for med fill Michelle Posey MS, CORNCOB PIPE MANUFACTURING SUPERVISOR Pain Management Clinic [facility] [phone] documented in this encounter Plan of Treatment Not on file documented as of this encounter Visit Diagnoses Diagnosis Chronic pain in right shoulder Pain in joint, shoulder region Pain management Other specified rehabilitation procedure Encounter for long-term (current) use of other medications documented in this encounter Care Teams Bingo Usher Relationship Specialty Start Date End Date Brandy Gilman APRN PCP - General 01/24/14 04/23/15 documented as of this encounter
--- OUTSIDE RECORDS SUMMARY | 2024-05-04 11:37 | XMS_ITS | Encounter Summary ---
Author Organization [facility] [place] [address] Care Team Providers Care Repair Manager Name Role Phone Brandy Gilman APRN Primary Care Provider +1- [phone] Encounter Details Date Type Department Care Team (Late st Contact Info) Description 09/08/2014 Telephone [place] [address] Neva Harvey, RN Social History Tobacco Use [...] drop my prescription off at the pharmacy [facility] in [place] and the pharmacist said I need to have Michelle posey or Monica Osorio call to verify that I was authorized to take extra of my pain medication last month so I can picker/puller my prescription on Friday Nurse advises she will forward thi message to Michelle Posey for review. Patient verbalizes understanding and agrees with the plan Patient states The Pharmacy is [facility] in [place] [phone]. documented in this encounter Plan of Treatment Not on file documented as of this encounter Visit Diagnoses Not on filedocumented in this encounter Care Teams Repair Manager Relationship Specialty Start Date End Date Brandy Gilman APRN PCP - General 01/24/14 04/23/15 documented as of this encounter
--- OUTSIDE RECORDS SUMMARY | 2024-05-04 11:37 | XMS_ITS | Encounter Summary ---
[place] [address] Care Team Providers Care Police Officer Name Role Phone Brandy Gilman APRN Primary Care Provider +1- [phone] Encounter Details Date Type Department Care Team (Late st Contact Info) Description 04/18/2014 Telephone [place] [phone] Agnes Wilder LPN Social History Tobacco Use [...] on filedocumented in this encounter Care Teams Police Officer Relationship Specialty Start Date End Date Brandy Gilman APRN PCP - General 01/24/14 04/23/15 documented as of this encounter
--- OUTSIDE RECORDS SUMMARY | 2024-05-04 11:37 | XMS_ITS | Encounter Summary ---
Author Organization [facility] Address [address] [place] [address] Care Team Providers Care Human Resources File Clerk Name Role Phone Unknown, Provider Primary Care Provider Unava ilable Encounter Details Date Type Department Care Team (Late st Contact Info) Description 02/28/2004 Results Only [facility] - Maple conversion [address] [place] [address] Raman Maynard, MARIA GUADALUPE [address] [place] [address] Social History Tobacco Use Types [...] ? NASRIN HANEY ? Accession #: ? [id number] : ? 1985 (Age: 18) ??F ?Collect Date: ? 02/28/2004 Location: ? [facility] ? Receive Date: ? 03/02/2004 Provider: ?RAMAN MAYNARD INSIDE SALES TRAINER Copy to: ? Specimen/Source: ?ThinPrep Pap Test, [...] Document reviewed and electronically signed by: ? Wild Brady, DEMETRIA(ASCP) ? Report Date: ??03/09/2004 10:15 End of Report [facility] 02/28/2004 03/02/2004 us Raman Maynard INSIDE SALES TRAINER PATHOLOGY ORDERABLES Final R esult [facility] [address] [place] [address] documented in this encounter Visit Diagnoses Not on filedocumented in this encounter Care Teams Human Resources File Clerk Relationship Specialty Start Date End Date Unknown, Provider, PCP - General 04/04/09 12/21/19 documented as of this encounter
--- OUTSIDE RECORDS SUMMARY | 2024-05-04 11:37 | XMS_ITS | Encounter Summary ---
Author Organization [facility] [place] [address] Care Team Providers Care Aging Box Hand Name Role Phone Brandy Gilman APRN Primary Care Provider +1- [phone] Reason for Referral * Rehabilitation (Routine) - Declined by Patient Specialty Diagnoses / Procedures Referred By Enedina malhotra Referred To Contact Orthopaedics Diagnoses Chronic pain in right shoulder Malik Bridges DO [facility] [place] [address] [facility] [address] [place] [address] Referral ID Status Reason Start Date Expiration Date Visits Requested Visits Authorized [id number] Declined by Patient Consult, Test & Treat [...] PM EST Office [place] [address] Malik Bridges DO Chronic pain in right shoulder; Encounter for [...] children 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 She is interested in learning [...] (Marijuana), Urine Confirmation (02/21/2015 2:37 PM EST) U THC Conf Test ? Result ?? Flag ??Unit ?? RefValue Drug of Abuse, THC Conf, U ??GC/MS Confirmation - ? Positive ?THC ??THC Carboxylic Acid ?3292 ? ng/mL ??Cutoff:<3 ---ADDITIONAL INFORMATION----- This report is intended for use in clinical monitoring and management of patients. It is not intended for use in employment-relat ed drug testing. Test Performed by: [facility] [address], [place] [address] Lot Technician: Mela Young, Ph.D. [facility] Urine specimen [...] ??Morphine ? Negative ? ng/mL ??<100 ??Oxycodone ?81048 ?ng/mL ??<100 ??Oxymorphone ?6480 ? ng/mL ??<100 --ADDITIONAL INFORMATION------ This report is intended for use in clinical monitoring and management of patients. It is not intended for use in employment-relate d drug testing. Test Performed by: [facility] [address] [address] Lot Technician: Mela Young, Ph.D. [facility] Urine specimen (specimen) 02/21/2015 2:37 PM EST 02/22/2015 8:33 AM EST Narrative Resulting Agency Comment Spec In Lab Ulisses Clarke MD URINE ORDERABLES Performing Organization Address City/State/[facility] Co de Phone Number [facility] documented in this encounter Visit Diagnoses Diagnosis Chronic pain in right shoulder Pain in joint, shoulder region Encounter for long-term use of opiate analgesic Encounter for long-term (current) use of other medications Pain management Other specified rehabilitation procedure documented in this encounter Care Teams Aging Box Hand Relationship Specialty Start Date End Date Brandy Gilman APRN PCP - General 01/24/14 04/23/15 documented as of this encounter
--- OUTSIDE RECORDS SUMMARY | 2024-05-04 11:37 | XMS_ITS | Encounter Summary ---
[place] [address] Care Team Providers Care Labor Relations Specialist Name Role Phone Brandy Gilman APRN Primary Care Provider +1- [phone] Reason for Visit * Reason Onset Date Comments Medication Refill 10/06/2014 Encounter Details Date Type Department Care Team (Late st Contact Info) Description 10/06/2014 [place] [address] Agnes Wilder LPN Chronic pain in right [...] day supply. Confirmed with Ezequiel Garcia @ [facility], only 28 tablets of Oxycodone were filled. Pt will need an additional Rx for remaining 28 tablets. Pt requests Rx be mailed to [facility] in [place], [place] documented in this encounter Plan of Treatment Not on file documented as of this encounter Visit Diagnoses Diagnosis Chronic pain in right shoulder Pain in joint, shoulder region documented in this encounter Care Teams Labor Relations Specialist Relationship Specialty Start Date End Date Brandy Gilman APRN PCP - General 01/24/14 04/23/15 documented as of this encounter
--- OUTSIDE RECORDS SUMMARY | 2024-05-04 11:37 | XMS_ITS | Encounter Summary ---
Author Organization [place] [address] Care Team Providers Care Concrete Pipe Machine Operator Name Role Phone Roddy Kwok WILMER Primary Care Provider +1- [phone] Reason for Visit * Reason Comments Shoulder Pain Right Encounter Details Date Type Department Care Team (Late st Contact Info) Description 11/29/2014 10:45 AM EDT [place] [address] Monica Osorio APRN Chronic pain in right [...] AM EDT PAIN CLINIC FOLLOW-UP Nasrin Haney [id number] Reason for follow-up: Medical managment Chief Complaint: [...] Dr Cassidy but case left open The [place] Prescription Monitoring Program was checked [...] 0 F/U 28 MONICA OSORIO APRN cc: RODDY KWOK APRN (General) None (Regular Care Provider) documented in this encounter Plan of Treatment Not on file documented as of this encounter Visit Diagnoses Diagnosis Chronic pain in right shoulder Pain in joint, shoulder region documented in this encounter Care Teams Concrete Pipe Machine Operator Relationship Specialty Start Date End Date Roddy Kwok APRN PCP - General 01/24/14 04/23/15 documented as of this encounter
--- OUTSIDE RECORDS SUMMARY | 2024-05-04 11:37 | XMS_ITS | Encounter Summary ---
Author Organization [facility] [place] [address] Care Team Providers Care Geophysical Engineer Name Role Phone Brandy Gilamn APRN Primary Care Provider +1- [phone] Encounter Details Date Type Department Care Team (Late st Contact Info) Description 10/06/2014 Orders [place] [address] Monica Osorio APRN Social History Tobacco Use Types Packs/Day Years [...] on filedocumented in this encounter Care Teams Geophysical Engineer Relationship Specialty Start Date End Date Brandy Gilman APRN PCP - General 01/24/14 04/23/15 documented as of this encounter
--- OUTSIDE RECORDS SUMMARY | 2024-05-04 11:37 | XMS_ITS | Encounter Summary ---
Author Organization [facility] [place] [address] Care Team Providers Care Laborer Pullet Farm Name Role Phone Brandy Gilman APRN Primary Care Provider +1- [phone] Reason for Visit * Reason Onset Date Comments Medication Refill 11/30/2014 Encounter Details Date Type Department Care Team (Late st Contact Info) Description 11/30/2014 Refill [place] [address] Neva Harvey, RN Social History Tobacco Use [...] on filedocumented in this encounter Care Teams Laborer Pullet Farm Relationship Specialty Start Date End Date Brandy Gilman APRN PCP - General 01/24/14 04/23/15 documented as of this encounter
--- OUTSIDE RECORDS SUMMARY | 2024-05-04 11:37 | XMS_ITS | Encounter Summary ---
Author Organization [facility] [place] [address] Care Team Providers Care Tool Clerk Name Role Phone Brandy Gilman APRN Primary Care Provider +1- [phone] Encounter Details Date Type Department Care Team (Late st Contact Info) Description 04/18/2014 Notes [place] [address] Boston Henderson DO Social History Tobacco Use Types Packs/Day [...] on filedocumented in this encounter Care Teams Tool Clerk Relationship Specialty Start Date End Date Brandy Gilman APRN PCP - General 01/24/14 04/23/15 documented as of this encounter
--- OUTSIDE RECORDS SUMMARY | 2024-05-04 11:37 | XMS_ITS | Encounter Summary ---
Author Organization [facility] Address [address] [place] [address] Care Team Providers Care Director Translational Name Role Phone Unavailable Primary Care Provider Unavailabl e Encounter Details Date Type Department Care Team (Late st Contact Info) Description 12/30/2001 18:23 EDT Hospital Encounter [facility] - Other [address] [place] [address] Anuja Lynch MD PhD [address] [place] [phone] Unknown, Provider, MD Discharge Disposition: Auto Discharge [...] AMANDA, NASRIN A ? Accession #: ? [id number] ? : ? 1985 (Age: 24) ??F [...] length by 1.0 cm in diameter. ??The Reedley's jelly is an opaque white. ??There are [...] ? white areas on the maternal surface. ??Ground Hand sections are submitted as ?? follows: ? BLOCK WATERMAN ? A1 ?Umbilical cord and yolk sac remnants ? A2 ? membranes ? A3, A4 ?Placental disc ? (Dr. Santos)/mpl ? End of Report ? [facility] 03/28/2009 03/29/2009 14: 20 EST Rashida Monterroso CNM PATHOLOGY ORDERABLES Final Res ult [facility] [address] [place] [address] documented in this encounter Visit Diagnoses Not on filedocumented in this encounter
--- OUTSIDE RECORDS SUMMARY | 2024-05-04 11:37 | XMS_ITS | Encounter Summary ---
Author Organization [facility] Address [address] [place] [address] Care Team Providers Care Oral Surgery Physician Name Role Phone Unknown, Provider Primary Care Provider Unava ilable Encounter Details Date Type Department Care Team (Late st Contact Info) Description 02/09/2001 Results Only [facility] - Maple conversion [address] [place] [address] Pedrito Caceres MD [address] [place] [address] Social History Tobacco Use Types Packs/Day Years [...] ? NASRIN HANEY ? Accession #: ? [id number] ? : ? 1985 (Age: 15) ??F [...] tip is submitted as (A1) and a brewery representative middle section and proximal resection margin are submitted as (A2). ??(Ivy Morgan)/aide End of Report [facility] 02/09/2001 02/09/2001 15: 39 EST us Pedrito aCceres MD PATHOLOGY ORDERABLES Final Result Performing Organization Address City/State/[facility] Co de Phone Number [facility] [address] [place] [address] documented in this encounter Visit Diagnoses Not on filedocumented in this encounter Care Teams Oral Surgery Physician Relationship Specialty Start Date End Date Unknown, Provider, PCP - General 04/04/09 12/21/19 documented as of this encounter
--- OUTSIDE RECORDS SUMMARY | 2024-05-04 11:37 | XMS_ITS | Encounter Summary ---
Author Organization [facility] Address [address] [place] [address] Care Team Providers Care Eradicator Name Role Phone Unknown, Provider Primary Care Provider Unava ilable Encounter Details Date Type Department Care Team (Late st Contact Info) Description 12/16/2002 Results Only [facility] - Maple conversion [address] [place] [address] Shadia Barrow [place] [id number] [facility] [place], [place] [id number] Social History Tobacco Use Types Packs/Day Years [...] 66. [facility] Report Status Final [id number] [facility] 12/16/2002 15:0 0 EDT 12/22/2002 11:48 EDT us Guy Chavez MD MICROBIOLOGY - GENERAL ORDERABL ES Final Result [facility] [address] [place] [address] * CYTOPATHOLOGY (12/16/2002 0:00 EDT) Pathology Report: CYTOPATHOLOGY REPORT Reports generated via electronic interface contain original data; however they are lacking the format of the original report. Caution should be taken when reading/interpreti ng unformatted reports. Name: ? NASRIN HANEY ? Accession #: ? [id number] : ? 1985 (Age: 17) ??F ?Collect Date: ? 12/16/2002 Location: ? [facility] ? Receive Date: ? 12/20/2002 Provider: ?SHADIA DANYACAITLIN [facility] Copy to: ? Specimen/Source: ?ThinPrep Pap Test, [...] and electronically signed by: ? Kathy Harper, DEMETRIA(ASCP) ? Report Date: ??12/22/2002 10:34 End of Report [facility] 12/16/2002 12/20/2002 us Shadia PADRON PATHOLOGY ORDERABLES Final Resul t [facility] [address] [place] [address] documented in this encounter Visit Diagnoses Not on filedocumented in this encounter Care Teams Eradicator Relationship Specialty Start Date End Date Unknown, Provider, PCP - General 04/04/09 12/21/19 documented as of this encounter
--- OUTSIDE RECORDS SUMMARY | 2024-05-04 11:37 | XMS_ITS | Encounter Summary ---
Author Organization [facility] [place] [address] Care Team Providers Care Casting Associate Name Role Phone Gilman, Brandycam Sykes APRN Primary Care Provider +1- [phone] Encounter Details Date Type Department Care Team (Late st Contact Info) Description 08/23/2014 Telephone [place] [phone] Cinda Kitchen LPN Social History Tobacco Use [...] and inflamed. She saw Aline at the [facility] in [place]. Return visit scheduled for September 06. Currently [...] Someone please call that would be great. [phone]. documented in this encounter Plan of Treatment Not on file documented as of this encounter Visit Diagnoses Not on filedocumented in this encounter Care Teams Casting Associate Relationship Specialty Start Date End Date Brandy Gilman APRN PCP - General 01/24/14 04/23/15 documented as of this encounter
--- OUTSIDE RECORDS SUMMARY | 2024-05-04 11:37 | XMS_ITS | Encounter Summary ---
Author Organization [facility] Address [address] [place] [address] Care Team Providers Care Block Setter Gypsum Name Role Phone Unknown, Provider Primary Care Provider Unava ilable Encounter Details Date Type Department Care Team (Late st Contact Info) Description 12/19/2002 Results Only [facility] - Maple conversion [address] [place] [address] Guy Gomez MD [address] [place] [address] [address] Social History Tobacco Use Types Packs/Day Years [...] ? NASRIN HANEY ? Accession #: ? [id number] ? : ? 1985 (Age: 17) ??F [...] [facility] 12/19/2002 12/22/2002 8:4 5 EDT us Guy Gomez MD PATHOLOGY ORDERABLES Final Resu lt [facility] [address] [place] [address] documented in this encounter Visit Diagnoses Not on filedocumented in this encounter Care Teams Block Setter Gypsum Relationship Specialty Start Date End Date Unknown, Provider, PCP - General 04/04/09 12/21/19 documented as of this encounter
--- OUTSIDE RECORDS SUMMARY | 2024-05-04 11:37 | XMS_ITS | Encounter Summary ---
[facility] [place] [address] Care Team Providers Care Eligibility Worker Name Role Phone Brandy Gilman APRN Primary Care Provider +1- [phone] Encounter Details Date Type Department Care Team (Late st Contact Info) Description 04/18/2014 [place] [address] Boston Henderson DO Social History Tobacco Use [...] completion by the Pain Management Center providers. [facility] is not dictating her [...] on filedocumented in this encounter Care Teams Eligibility Worker Relationship Specialty Start Date End Date Brandy Gilman APRN PCP - General 01/24/14 04/23/15 documented as of this encounter
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
--- OUTSIDE RECORDS SUMMARY | 2024-05-04 11:37 | XMS_ITS | Encounter Summary ---
[place] [address] Care Team Providers Care Manager Hvac Name Role Phone Brandy Gilman APRN Primary Care Provider +1- [phone] Encounter Details Date Type Department Care Team (Late st Contact Info) Description 01/05/2015 Telephone [place] [phone] Neva Harvey RN Social History Tobacco Use [...] Management Center Preauthorization Request Patient: Nasrin Haney [id number] Fax received from [facility] requesting we obtain prior authorization for Ketamine Baclofen, Diclofenac, Gabapentin Lidocaine cream prescribed by Michelle Posey APRN. RX [place] telephone: Patient Diagnosis: Chronic pain right shoulder, Pain management [facility] use of medications Previous medications attempted: Ibuprofen, NSAIDS, Tramadol The following action was taken after discussion with the service sprinkler helper: _X_ sent to clinical review, patient informed Neva Harvey RN documented in this encounter Plan of Treatment Not on file documented as of this encounter Visit Diagnoses Not on filedocumented in this encounter Care Teams Manager Hvac Relationship Specialty Start Date End Date Brandy Gilman APRN PCP - General 01/24/14 04/23/15 documented as of this encounter
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
--- OUTSIDE RECORDS SUMMARY | 2024-05-04 11:37 | XMS_ITS | Encounter Summary ---
Author Organization [facility] Address [address] [place] [address] Care Team Providers Care Slicing Machine Operator Name Role Phone Unknown, Provider Primary Care Provider Unava ilable Encounter Details Date Type Department Care Team (Late st Contact Info) Description 06/26/2001 Results Only [facility] - Maple conversion [address] [place] [address] Raman Maynard, MARIA GUADALUPE [address] [place] [address] Social History Tobacco Use Types [...] ? NASRIN HANEY ? Accession #: ? [id number] : ? 1985 (Age: 16) ??F ?Collect Date: ? 06/26/2001 Location: ? [facility] ? Receive Date: ? 06/30/2001 Provider: ?RAMAN MAYNARD HVAC ESTIMATOR Copy to: ? Specimen/Source: ?ThinPrep Pap Test, [...] electronically signed by: ? JÚNIOR VALERIO MD [facility] ? Report Date: ??07/07/2001 15:22 End of Report [facility] 06/26/2001 06/30/2001 us Raman Maynard NP PATHOLOGY ORDERABLES Final R esult [facility] [address] [place] [address] documented in this encounter Visit Diagnoses Not on filedocumented in this encounter Care Teams Slicing Machine Operator Relationship Specialty Start Date End Date Unknown, Provider, PCP - General 04/04/09 12/21/19 documented as of this encounter
--- OUTSIDE RECORDS SUMMARY | 2024-05-04 11:37 | XMS_ITS | Encounter Summary ---
Author Organization [facility] Address [address] [place] [address] Care Team Providers Care Field Naturalist Name Role Phone Unknown, Provider Primary Care Provider Unava ilable Encounter Details Date Type Department Care Team (Late st Contact Info) Description 10/04/2009 Results Only [facility] Laboratory Services - [facility] ([facility] [address] [place], [place] [address] Rashida [place] [id number] Social History Tobacco Use Types Packs/Day Years [...] 10/04/2009 11:4 0 EDT 10/17/2009 14:10 EDT us Rashida PADRONM MICROBIOLOGY - GENERAL ORDERAB LES Final Result [facility] [address] [place] [address] * CYTOPATHOLOGY (10/04/2009 0:00 EDT) Pathology Report: CYTOPATHOLOGY REPORT ? Reports generated via electronic interface contain original data; ? however they are lacking the format of the original report. ? Caution should be taken when reading/interpreti ng unformatted reports. ? Name: ? NASRIN HANEY ? Accession #: ? [id number] ? : ? 1985 (Age: 24) ??F [...] reviewed and electronically signed by: ? Louis B. Ambaye, MD ? Report Date: ??10/13/2009 15:49 ? End of Report ? [facility] 10/04/2009 10/05/2009 us Rashida Monterroso CNM PATHOLOGY ORDERABLES Final Res ult Performing Organization Address City/State/[facility] Co de Phone Number [facility] [address] [place] [address] documented in this encounter Visit Diagnoses Not on filedocumented in this encounter Care Teams Field Naturalist Relationship Specialty Start Date End Date Unknown, Provider, PCP - General 04/04/09 12/21/19 documented as of this encounter
--- OUTSIDE RECORDS SUMMARY | 2024-05-04 11:37 | XMS_ITS | Encounter Summary ---
[facility] [place] [address] Care Team Providers Care Check Embosser Name Role Phone Brandy Gilman APRN Primary Care Provider +1- [phone] Encounter Details Date Type Department Care Team (Late st Contact Info) Description 05/20/2014 Telephone [place] [id number] Monica Osorio APRN Social History Tobacco Use Types Packs/Day Years Used Date Smoking Tobacco: Every Day Cigarettes 0.5 15 Smokeless Tobacco: Never Sex and Gender Information Value Date Recorded Sex Assigned at Not on file Gender Identity Not on file Sexual Orientation Not on file documented as of this encounter Miscellaneous Notes * Telephone Encounter - Nvea Harvey RN - 05/26/2014 12:40 PM EST Patient notified that Dr. Cassidy will cover immediate post op pain medications. Pain Clinic will resume coverage after that. * Telephone Encounter - Monica Osorio APRN - 05/20/2014 8:46 AM EST Received a call from Dr Hearn office in [place]. Speaking with their PA, it seem they have offered Ms Lyndon surgery and we have decided that Dr Cassidy will cover her pain medications in the immediatepost op period and we will resume coverage if needed. documented in this encounter Plan of Treatment Not on file documented as of this encounter Visit Diagnoses Not on filedocumented in this encounter Care Teams Check Embosser Relationship Specialty Start Date End Date Brandy Gilman, WILMER PCP - General 01/24/14 04/23/15 documented as of this encounter
--- OUTSIDE RECORDS SUMMARY | 2024-05-04 11:37 | XMS_ITS | Encounter Summary ---
Author Organization [facility] [place] [address] Care Team Providers Care Manager Of Case Management Name Role Phone Brandy Gilman APRN Primary Care Provider +1- [phone] Encounter Details Date Type Department Care Team (Late st Contact Info) Description 08/24/2014 Notes [place] [address] Michelle Posey APRN [facility] [place] [address] Social History Tobacco Use Types Packs/Day Years [...] filedocumented in this encounter Care Teams Manager Of Case Management Relationship Specialty Start Date End Date Brandy Gilman APRN PCP - General 01/24/14 04/23/15 documented as of this encounter
--- OUTSIDE RECORDS SUMMARY | 2024-05-04 11:38 | XMS_ITS | Encounter Summary ---
Author Organization [facility] [place] [address] Care Team Providers Care Senior Bookkeeper Name Role Phone Bee Levine APRN Primary Care Provider +1 [phone] Encounter Details Date Type Department Care Team (Late st Contact Info) Description 09/23/2006 Orders Only Gastroenterology at [facility] [place] [address] El Flores MD Social History Tobacco Use Types Packs/Day Years [...] 4:05 PM EDT) Surgical Pathology Report [id number] ? Location: The signing pathologist has (i) [...] PM EDT El Flores MD PATHOLOGY/CYTOLOGY O RDERABLES [facility] documented in this encounter Visit Diagnoses Not on filedocumented in this encounter Care Teams Senior Bookkeeper Relationship Specialty Start Date End Date Bee Levine APRN PCP - General Family Medicine 04/24/15 documented as of this encounter
--- OUTSIDE RECORDS SUMMARY | 2024-05-04 11:38 | XMS_ITS | Encounter Summary ---
Author Organization [facility] [place] [address] Care Team Providers Care Dockmaster Name Role Phone KwokBrandy mchugh Mony GUILLEN Primary Care Provider +1- [phone] Reason for Referral * Physical Therapy (Routine) - Closed by system - Referral Specialty Diagnoses / Procedures Referred By Contkacy t Referred To Contact Physical Therapy Diagnoses Chronic pain in right shoulder Monica Osorio APRN [facility] [place] [address] Referral ID Status Reason Start Date Expiration Date Visits Requested Visits Authorized [id number] Closed by system - Referral Evaluate and Treat 4 08/17/2014 1 1 Reason for Visit * Reason Comments Right Shoulder Pain Encounter Details Date Type Department Care Team (Late st Contact Info) Description 02/18/2014 2:00 PM EST Follow-[place] [address] Monica Osorio APRN Chronic pain in right [...] encounter Progress Notes * Monica Osorio, SUPERVISOR PRODUCT INSPECTION - 02/18/2014 2:19 PM EST PAIN CLINIC FOLLOW-UP Nasrin Haney [id number] Reason for follow-up: Medical managment Chief Complaint: [...] in day care Recent treatments: none The [place] Prescription Monitoring Program was checked and no [...] region documented in this encounter Care Teams Dockmaster Relationship Specialty Start Date End Date Brandy Kwok APRN PCP - General 01/24/14 04/23/15 documented as of this encounter
--- OUTSIDE RECORDS SUMMARY | 2024-05-04 11:38 | XMS_ITS | Encounter Summary ---
Author Organization [facility] Address [facility] [place] [address] Care Team Providers Care Release Manager Name Role Phone Bee Levine APRN Primary Care Provider +1 [phone] Encounter Details Date Type Department Care Team (Late st Contact Info) Description 12/29/2006 [place] [address] Ruddy Wang MD [facility] [address] [place] [address] Social History Tobacco Use Types Packs/Day Years [...] 5:36 PM EDT) Surgical Pathology Report [id number] ? Location: [facility]; [facility]; A The signing pathologist has (i) examined [...] PM EDT Ruddy Wang MD PATHOLOGY/CYTOLOGY O SAHRON Performing Organization Address City/State/[facility] Co de Phone Number RED SAWYER documented in this encounter Visit Diagnoses Not on filedocumented in this encounter Care Teams Release Manager Relationship Specialty Start Date End Date Bee Levine, SILK SPOOLER PCP - General Family Medicine 04/24/15 documented as of this encounter
--- OUTSIDE RECORDS SUMMARY | 2024-05-04 11:38 | XMS_ITS | Encounter Summary ---
[place] [address] Care Team Providers Care Edi Specialist Name Role Phone Brandy Kwok WILMER Primary Care Provider +1- [phone] Reason for Visit * Reason Comments Pain Management Right Shoulder Pain Encounter Details Date Type Department Care Team (Late st Contact Info) Description 03/18/2014 2:30 PM EST [place] [phone] Monica Osorio APRN Chronic pain in right [...] Progress Notes * Monica Osorio APRN - 03/18/2014 2:48 PM EST PAIN CLINIC FOLLOW-UP Nasrin Haney [id number] Reason for follow-up: Medical managment Chief Complaint: Right shoulder pain Identification: Ms. Haney is a 28 y.o.-year-old female, who has a history of right shoulder pain after a fall 5 years ago, s/p surgery for biceps repair 2013.. History of Present Illness/Interval History Pain Location: [...] in day care Recent treatments: none The [place] Prescription Monitoring Program was checked and no [...] region documented in this encounter Care Teams Edi Specialist Relationship Specialty Start Date End Date Brandy Kwok APRN PCP - General 01/24/14 04/23/15 documented as of this encounter
--- OUTSIDE RECORDS SUMMARY | 2024-05-04 11:38 | XMS_ITS | Encounter Summary ---
Author Organization [facility] [place] [address] Care Team Providers Care Clay Caster Name Role Phone Brandy Gilman APRN Primary Care Provider +1- [phone] Encounter Details Date Type Department Care Team (Late st Contact Info) Description 02/14/2014 Telephone [place] [id number] Cinda Kitchen LPN Social History Tobacco Use [...] to plan of care. Patient transferred to hog dropper. documented in this encounter Plan of Treatment Not on file documented as of this encounter Visit Diagnoses Not on filedocumented in this encounter Care Teams Clay Caster Relationship Specialty Start Date End Date Brandy Gilman APRN PCP - General 01/24/14 04/23/15 documented as of this encounter
--- OUTSIDE RECORDS SUMMARY | 2024-05-04 11:38 | XMS_ITS | Encounter Summary ---
Author Organization [facility] Address [facility] [address] [place] [id number] Care Team Providers Care Cemetery Vault Installer Name Role Phone Shayna Trammell WILMER Primary Care Provider +1- [phone] Reason for Referral * Psychiatric (Routine) - Closed by system - Referral Specialty Diagnoses / Procedures Referred By Enedina malhotra Referred To Contact Psychiatry Diagnoses Encounter for long-term (current) use of other medications Monica Osorio APRN [facility] [place] [address] Amelia Calabrese, PhD [facility] [place] [address] Referral ID Status Reason Start Date Expiration Date Visits Requested Visits Authorized [id number] Closed by system - Referral Specialty Service Requested 4 07/20/2014 1 1 Reason for Visit * Reason Comments Pain Management Right Shoulder Pain Encounter Details Date Type Department Care Team (Late st Contact Info) Description 01/21/2014 12:45 PM EDT [place] [address] Monica Osorio, WILMER Chronic pain in right shoulder (Primary Dx); [...] documented in this encounter Progress Notes * Devon Monica L K, CULLET CRUSHER AND WASHER - 01/21/2014 2:02 PM EDT CHIEF COMPLAINT: [...] constitutional symptoms. 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 Smokes a half a pack a day. 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 She was unable [...] ed drug testing. Test Performed by: [facility] [address], [place] [address] Relationship Manager: Mela Esteban, Ph.D. RED SAWYER Urine specimen (specimen) 01/21/2014 12:45 PM EDT 01/21/2014 3:06 PM EDT Narrative Resulting Agency Comment Spec In Lab Ruddy Mcpherson V, DO LAB SEND OUT ORDERAB LES RED SAWYER * Drug Screen with Confirmation, Urine (01/21/2014 [...] ??Morphine ? Negative ? ng/mL ??<100 ??Oxycodone ?1990 ? ng/mL ??<100 ??Oxymorphone ?7240 ? ng/mL ??<100 --ADDITIONAL INFORMATION------ This report is intended for use in clinical monitoring and management of patients. It is not intended for use in employment-relate d drug testing. Test Performed by: [place] [address] Relationship Manager: Mela Esteban, Ph.D. RED FRAGAALVINO Urine specimen (specimen) 01/21/2014 12:45 PM EDT 01/21/2014 3:06 PM EDT Narrative Resulting Agency Comment Spec In Lab Ruddy Mcpherson V, URINE ORDERABLES Performing Organization Address City/State/[facility] Co de Phone Number RED SAWYER documented in this encounter Visit Diagnoses Diagnosis Chronic pain in right shoulder- Primary Pain in joint, shoulder region Encounter for long-term (current) use of other medications documented in this encounter Care Teams Cemetery Vault Installer Relationship Specialty Start Date End Date Shayna Trammell APRN [facility] [address] [place] [address] PCP - General 02/27/10 01/23/14 documented as of this encounter
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
[2024-05-04] MEDS: Ibuprofen 600 MG TAB PO (14:22)
[2024-05-04] MEDS: Acetaminophen 500 MG TAB 1000 MG PO (14:22)
[2024-05-04 14:53] LABS: COVID-19 PCR Negative (Negative); Influenza A PCR Negative (Negative); Influenza B PCR Negative (Negative); RSV PCR Negative (Negative)
[2024-05-04 14:55] LABS: Source Nasopharynx
--- NOTE | 2024-05-04 22:01 | NUR.NOTE ---
Patient was not seen as a mental health patient while in the department. She was brought in for wellness check
== END 2024-05-04 14:40 | disposition home or self-care (01) ==
PROVIDERS: Emergency Provider Emergency Medicine; PCP Physician Assistant
DX: F19.90 Other psychoactive substance use, unspecified, uncomplicated (principal); F10.90 Alcohol use, unspecified, uncomplicated; F17.210 Nicotine dependence, cigarettes, uncomplicated; Z59.00 Homelessness unspecified
CPT/HCPCS: 87637; 99283

== ENCOUNTER 2024-06-05 00:30 | Emergency (ER) | payer SELFPAY ==
[2024-06-05 00:34] VITALS: BP 98/60; PULSE 70; RESP 18; TEMP 36.5; O2SAT 97
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
[2024-06-05] MEDS: Ketorolac 30 MG/ML VIAL IM (01:02)
[2024-06-05] MEDS: Lidocaine 5% Patch 1 PATCH TP (01:02)
--- NOTE | 2024-06-05 01:48 | DI.RAD_ITS ---
Exam(s) XR RIBS LT W PA LAT CHEST CLINICAL HISTORY fall one week ago, persistent rib pain. COMPARISON: CT CT CHEST/ABD/PEL W from 02/07/2024 TECHNIQUE:: PA and lateral views of the chest and four views of the left ribs were performed. FINDINGS: LUNGS: Clear. No pleural abnormality seen. HEART: Normal. MEDIASTINUM: Normal. BONES: There is a fracture at the distal left 9th rib near the area marked by a BB no additional frac tures are identified.. No compression fractures are seen in the thoracic spine. No bony destructive lesion is seen. OTHER FINDINGS: None. IMPRESSION: 1. Mildly displaced distal left 9th rib fracture. 2. No acute pulmonary findings.
[2024-06-05 01:59] VITALS: BP 98/68; PULSE 63; RESP 22; TEMP 36.6; O2SAT 99
--- NOTE | 2024-06-05 03:02 | DI.VRAD_ITS ---
PROCEDURE INFORMATION: Exam: XR Left Ribs Exam date and time: 06/05/2024 1:14 AM Age: 39 years old Clinical indication: Injury or trauma; Blunt trauma (contusions or hematomas); Rib area, left side; Injury date: 05/29/24; Fall one week ago, persistent rib pain TECHNIQUE: Imaging protocol: Radiologic exam of the left ribs. Views: 2 views. COMPARISON: CT CHEST/ABD/PEL W 02/07/2024 3:19 PM FINDINGS: Bones/joints: Acute fracture of the 9th rib near the costochondral junction. Soft tissues: Normal. IMPRESSION: Acute fracture of the 9th rib near the costochondral junction. PROCEDURE INFORMATION: Exam: XR Chest Exam date and time: 06/05/2024 1:14 AM Age: 39 years old Clinical indication: Injury or trauma; Blunt trauma (contusions or hematomas); Rib area, left side; Injury date: 05/29/24; Fall one week ago, persistent rib pain TECHNIQUE: Imaging protocol: Radiologic exam of the chest. Views: 2 views. COMPARISON: CT CHEST/ABD/PEL W 02/07/2024 3:19 PM FINDINGS: Lungs: Unremarkable. No consolidation. Pleural spaces: Unremarkable. No pleural effusion. No pneumothorax. Heart/Mediastinum: Unremarkable. No cardiomegaly. Bones/joints: Acute fracture of the 9th rib near the costochondral junction. IMPRESSION: Acute fracture of the 9th rib near the costochondral junction. Dictated and Authenticated by: Gentry Guzman MD. Orderin Lei Mills MD
== END 2024-06-05 01:59 | disposition home or self-care (01) ==
PROVIDERS: Emergency Provider Emergency Medicine
DX: S20.212A Contusion of left front wall of thorax, initial encounter (principal); W19.XXXA Unspecified fall, initial encounter
CPT/HCPCS: 96372; 99284; 71046; 71100; 99283; J1885

== ENCOUNTER 2024-09-15 05:18 | Emergency (ER) | payer SELFPAY ==
[2024-09-15 05:22] VITALS: BP 143/102; PULSE 76; RESP 18; TEMP 36.6; O2SAT 98
[2024-09-15 05:25] VITALS: RESP 18
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
[2024-09-15 07:00] LABS: HIV 1/2 Ab Rapid Negative (Negative)
[2024-09-15 18:42] LABS: HBs Antibody, Quant <3.1 mIU/mL (See Note); Hep B Surface Ab Negative (See Note); Hepatitis B Core Antibody Negative (Negative); Hepatitis B Surface Antigen Negative (Negative)
[2024-09-15 18:46] LABS: HIV-1/2 Ag & Ab Screen Negative (Negative)
[2024-09-15 19:07] LABS: Hepatitis C Ab w Rflx HCV PCR Reactive (Negative)
[2024-09-16 12:35] LABS: HCV RNA Detection Quantitative 817000 IU/mL (Undetected); HCV RNA Qualitative Detected (Undetected)
== END 2024-09-15 07:30 | disposition home or self-care (01) ==
LOC: ER 07:13
PROVIDERS: Emergency Provider Emergency Medicine
DX: Z71.1 Person with feared health complaint in whom no diagnosis is made (principal); F17.210 Nicotine dependence, cigarettes, uncomplicated
CPT/HCPCS: 86704; 86706; 86803; 87340; 87389; 87522; 99283